=== PATIENT | female | born 1950 | race Caucasian/White ===

== ENCOUNTER → 2016-08-22 | Outpatient (REF) | payer MEDICARE, MEDICAID ==
[~2016-08-22] MED LIST: /ESCI20TA; /ESOM40CA; /FEXO18TA; AMIT25TA PO; BABY81CH; BENI20TA11; CIPR500T19; CIPR500T89 PO; DIOV320T; DOCU10CA PO; DRIS50002 PO; FLAG500T; FLAG500T PO; GLUC500T; GLYB5TA PO; HYDR12.55 PO; HYDR25TA6; HYDROCHLORTHIAZIDE; LEVA500T PO; LEVO125T3 PO; LEVO200T6; LEVOTHROID; LEXA1TAB2 PO; METF1000 PO; NAPR500T; NAPR500T PO; NEXI20CA; OMEP40CA2 PO; PEG1POW PO; PERC5TAB6 PO; POTA20TA2; RAMI10CA PO; SIMV40TA2 PO; ZOFR20TA PO; [UNRECOGNIZED DRUG - CODE] PO
== END ==
LOC: M SFHCADAM 08:12
PROVIDERS: ATTEND Physician Assistant Medical
DX: R76.11 Nonspecific reaction to tuberculin skin test without active tuberculosis (principal)

== ENCOUNTER → 2016-08-22 | Outpatient (CLI) | payer MEDICARE, MEDICAID ==
--- NOTE | 2016-08-22 10:39 | REP ---
Chest two views HISTORY: Positive PPD Comparison: 05/18/2009 The lungs are clear. The heart is normal in size. The pulmonary vasculature is normal in appearance. The bony structure is intact. IMPRESSION: No acute disease. Signed by Thony Dove MD 08/22/2016 10:31 A
== END ==
LOC: M ADAMS 08:17
PROVIDERS: ATTEND Physician Assistant Medical
DX: R76.11 Nonspecific reaction to tuberculin skin test without active tuberculosis (principal)

== ENCOUNTER → 2016-08-23 | Outpatient (REF) | payer MEDICARE, MEDICAID | LOC: M SFHCADAM 08:10 | PROVIDERS: ATTEND Physician Assistant Medical | DX: R76.11 Nonspecific reaction to tuberculin skin test without active tuberculosis (principal) ==

== ENCOUNTER → 2016-10-17 | Outpatient (CLI) | payer MEDICARE, MEDICAID ==
[~2016-10-17] MED LIST changes: +CIPR-249 PO; -CIPR500T89 PO; +LEVA1TAB2 PO; -LEVA500T PO; -LEVO125T3 PO; +LEVO125T4 PO; -METF1000 PO; +METF10004 PO; +PERC5TAB12 PO; -PERC5TAB6 PO; +TOUJ1.2I SC
[2016-10-17 14:18] LABS: ALBUMIN 3.3 GM/DL (3.2-5.2); ALBUMIN/GLOBULIN RATIO 0.87 (1.00-1.93); ALKALINE PHOSPHATASE 141 U/L (45-117); ALT/SGPT 86 U/L (12-78); ANION GAP 7 MEQ/L (8-16); AST/SGOT 86 U/L (15-37); BILIRUBIN,TOTAL 1.1 MG/DL (0.2-1.0); BLOOD UREA NITROGEN 12 MG/DL (7-18); CALCIUM LEVEL 8.8 MG/DL (8.8-10.2); CARBON DIOXIDE LEVEL 30 MEQ/L (21-32); CHLORIDE LEVEL 101 MEQ/L (98-107); CHOLESTEROL LEVEL 208 MG/DL (<200); CREATININE FOR GFR 0.64 MG/DL (0.55-1.02); GLOMERULAR FILTRATION RATE > 60.0 (>45); GLUCOSE, FASTING 205 MG/DL (80-110); SODIUM LEVEL 138 MEQ/L (136-145); TOTAL PROTEIN 7.1 GM/DL (6.4-8.2); TRIGLYCERIDES LEVEL 283 MG/DL (<150)
--- NOTE | 2016-10-17 15:31 | REP ---
CT of the abdomen pelvis with IV and oral contrast: Comparison is 05/17/2014. The visualized lung wagner are unremarkable. The hepatic parenchyma is less dense than the spleen compatible with hepato steatosis. The gallbladder, pancreas and spleen are unremarkable. The adrenals, kidneys and abdominal aorta are unremarkable except for small renal cysts, not significantly changed. There is no bowel distension or obstruction. There are numerous diverticula, vertically in the descending colon and sigmoid colon. There is pericolonic inflammation adjacent to the sigmoid colon compatible with diverticulitis. There is no pericolonic abscess. There is no pneumoperitoneum. Pelvis: There is a hysterectomy. The vaginal cuff and adnexa are unremarkable. The appendix has a normal appearance. There is no ascites or adenopathy. The bladder is unremarkable. Impression: Sigmoid colon diverticulitis without pericolonic abscess. No ascites or pneumoperitoneum. Hepato steatosis. Signed by Az Cochran MD 10/17/2016 03:22 P
== END ==
LOC: M LAB 12:48
PROVIDERS: ATTEND Physician Assistant Medical
DX: E11.9 Type 2 diabetes mellitus without complications (principal); K57.92 Diverticulitis of intestine, part unspecified, without perforation or abscess without bleeding; E55.9 Vitamin D deficiency, unspecified; R30.0 Dysuria; E78.4 Other hyperlipidemia; E03.9 Hypothyroidism, unspecified; L29.8 Other pruritus; R15.1 Fecal smearing; R15.9 Full incontinence of feces; R10.32 Left lower quadrant pain; N39.41 Urge incontinence; Z79.84 Long term (current) use of oral hypoglycemic drugs; Z79.899 Other long term (current) drug therapy
CPT/HCPCS: 36415; 74177; 80053; 80061; 81002; 82043; 82306; 83036; 84443; 87086; G0463

== ENCOUNTER → 2016-10-17 | Outpatient (REF) | payer MEDICARE, MEDICAID ==
[~2016-10-17] MED LIST changes: -CIPR-249 PO; +CIPR500T89 PO; -LEVA1TAB2 PO; +LEVA500T PO; +LEVO125T3 PO; -LEVO125T4 PO; +METF1000 PO; -METF10004 PO; -PERC5TAB12 PO; +PERC5TAB6 PO; -TOUJ1.2I SC
== END ==
LOC: M SFHCADAM 12:01
PROVIDERS: ATTEND Physician Assistant Medical
DX: R30.0 Dysuria (principal); E11.9 Type 2 diabetes mellitus without complications; E78.4 Other hyperlipidemia; E03.9 Hypothyroidism, unspecified; E55.9 Vitamin D deficiency, unspecified

== ENCOUNTER → 2016-11-27 | Outpatient (REF) | payer MEDICARE ==
[~2016-11-27] MED LIST changes: +CIPR-249 PO; -CIPR500T89 PO; +LEVA1TAB2 PO; -LEVA500T PO; -LEVO125T3 PO; +LEVO125T4 PO; -METF1000 PO; +METF10004 PO; +PERC5TAB12 PO; -PERC5TAB6 PO; +TOUJ1.2I SC
== END ==
LOC: M SFHCADAM 17:01
PROVIDERS: ATTEND Physician Assistant Medical
DX: R19.5 Other fecal abnormalities (principal)

== ENCOUNTER 2016-12-16 12:44 | Emergency (ER) | payer MEDICARE ==
[~2016-12-16] VITALS: Ht 162.6 cm; Wt 111.3 kg
[~2016-12-16 12:44] MED LIST changes: -TOUJ1.2I SC
[2016-12-16] MEDS ORDERED: TOUJ1.2I SC (12:53)
[2016-12-16] MEDS ORDERED: NS 500 ML IV ONE (14:45)
[2016-12-16 15:22] LABS: VENOUS BASE EXCESS 4.1 (-2.0-2.0); VENOUS O2 SATURATION 66.5 % (60.0-80.0); VENOUS PARTIAL PRESSURE CO2 57.8 mmHg (38.0-50.0); VENOUS PARTIAL PRESSURE O2 37.1 mmHg (30.0-50.0); VENOUS STANDARD HCO3 27.3 MEQ/L; VENOUS TOTAL CO2 33.3 MEQ/L (24.0-28.0)
[2016-12-16 15:26] LABS: MEAN CORPUSCULAR HEMOGLOBIN 30.1 pg (27.0-33.0); MEAN CORPUSCULAR HGB CONC 34.2 g/dl (32.0-36.5); RED CELL DISTRIBUTION WIDTH 12.4 % (11.5-14.5); WHITE BLOOD COUNT 7.4 K/mm3 (4.0-10.0)
[2016-12-16 15:44] LABS: ALBUMIN 3.2 GM/DL (3.2-5.2); ALBUMIN/GLOBULIN RATIO 0.84 (1.00-1.93); ALKALINE PHOSPHATASE 132 U/L (45-117); ALT/SGPT 56 U/L (12-78); ANION GAP 6 MEQ/L (8-16); AST/SGOT 75 U/L (15-37); BILIRUBIN,DIRECT 0.2 MG/DL (0.0-0.2); BILIRUBIN,TOTAL 0.7 MG/DL (0.2-1.0); BLOOD UREA NITROGEN 11 MG/DL (7-18); CALCIUM LEVEL 9.6 MG/DL (8.8-10.2); CARBON DIOXIDE LEVEL 32 MEQ/L (21-32); CHLORIDE LEVEL 101 MEQ/L (98-107); CREATININE FOR GFR 0.77 MG/DL (0.55-1.02); GLOMERULAR FILTRATION RATE > 60.0 (>45); GLUCOSE, FASTING 224 MG/DL (80-110); SODIUM LEVEL 139 MEQ/L (136-145)
[2016-12-16 16:14] LABS: EOSINOPHILS 3 % (0-5)
[2016-12-16 17:10] LABS: VENOUS BASE EXCESS 5.7 (-2.0-2.0); VENOUS O2 SATURATION 82.6 % (60.0-80.0); VENOUS PARTIAL PRESSURE CO2 55.8 mmHg (38.0-50.0); VENOUS PARTIAL PRESSURE O2 47.9 mmHg (30.0-50.0); VENOUS STANDARD HCO3 29.2 MEQ/L; VENOUS TOTAL CO2 34.2 MEQ/L (24.0-28.0)
[2016-12-16] MEDS ORDERED: FIORICET TAB PO ONE (18:00)
[2016-12-16] MEDS ORDERED: KETOROLAC 30 MG/ML VIAL (J1885) IV ONE (18:00)
[2016-12-16 18:20] VITALS: BP 133/82
--- NOTE | 2016-12-16 19:44 | ECGEPIP ---
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
== END 2016-12-16 18:21 | disposition home or self-care (01) ==
LOC: M ED 12:44
DX: E11.65 Type 2 diabetes mellitus with hyperglycemia (principal); R07.9 Chest pain, unspecified; R51 Headache; I10 Essential (primary) hypertension; K57.92 Diverticulitis of intestine, part unspecified, without perforation or abscess without bleeding; Z79.899 Other long term (current) drug therapy; Z79.4 Long term (current) use of insulin
CPT/HCPCS: 80048; 80076; 82010; 82803; 83036; 83605; 83690; 85007; 85027; 93005; 96374; 99285; J1885

== ENCOUNTER → 2017-07-22 | Outpatient (REF) | payer MEDICARE, MEDICAID ==
[2017-07-22 13:07] LABS: BASO # 0.1 10^3/uL (0.0-0.2); BASO % 0.6 % (0.0-1.0); EOS # 0.2 10^3/uL (0.0-0.50); HEMATOCRIT 42.9 % (36.0-47.0); HEMOGLOBIN 13.9 g/dl (12.0-16.0); IMMATURE GRANULOCYTE % 0.4 % (0-3.0); LYMPH # 2.7 10^3/uL (1.5-4.5); LYMPH % 33.5 % (24.0-44.0); MEAN CORPUSCULAR HEMOGLOBIN 28.5 pg (27.0-33.0); MEAN CORPUSCULAR HGB CONC 32.4 g/dl (32.0-36.5); MEAN CORPUSCULAR VOLUME 87.9 fl (80.0-96.0); MONO # 0.8 10^3/uL (0.0-0.8); MONO % 10.4 % (0.0-5.0); NEUTROPHILS # 4.2 10^3/uL (1.8-7.7); NEUTROPHILS % 53.1 % (36.0-66.0); PLATELET COUNT, AUTOMATED 180 10^3/uL (150-450); RED BLOOD COUNT 4.88 10^6/uL (4.00-5.40); RED CELL DISTRIBUTION WIDTH 12.9 % (11.5-14.5)
[2017-07-22 13:32] LABS: ALBUMIN 3.3 GM/DL (3.2-5.2); ALBUMIN/GLOBULIN RATIO 0.94 (1.00-1.93); ALKALINE PHOSPHATASE 123 U/L (45-117); ALT/SGPT 22 U/L (12-78); ANION GAP 4 MEQ/L (8-16); AST/SGOT 19 U/L (7-37); BILIRUBIN,TOTAL 0.6 MG/DL (0.2-1.0); BLOOD UREA NITROGEN 14 MG/DL (7-18); CALCIUM LEVEL 8.9 MG/DL (8.8-10.2); CARBON DIOXIDE LEVEL 35 MEQ/L (21-32); CHLORIDE LEVEL 105 MEQ/L (98-107); CHOLESTEROL LEVEL 199 MG/DL (<200); CHOLESTEROL RISK RATIO 5.102 (<5); CREATININE FOR GFR 0.78 MG/DL (0.55-1.30); FREE T4 1.43 NG/DL (0.76-1.46); GLOMERULAR FILTRATION RATE > 60.0 (>45); GLUCOSE, FASTING 123 MG/DL (70-100); HDL CHOLESTEROL 39 MG/DL (>40); LDL CHOLESTEROL 118.2 MG/DL (<100); NON-HDL-C 160 MG/DL; POTASSIUM SERUM 4.4 MEQ/L (3.5-5.1); SODIUM LEVEL 144 MEQ/L (136-145); THYROID STIMULATING HORMONE 0.739 uIU/ML (0.358-3.740); TOTAL PROTEIN 6.8 GM/DL (6.4-8.2); TRIGLYCERIDES LEVEL 209 MG/DL (<150)
[2017-07-22 13:33] LABS: TOTAL 25(OH) VITAMIN D 55.7 NG/ML (30.0-100.0)
[2017-07-22 13:37] LABS: ESTIMATED AVERAGE GLUCOSE 157 MG/DL (60-110); HEMOGLOBIN A1c 7.1 %
[2017-07-22 13:59] LABS: MAU/CREAT RATIO 17.1 MCG/MG (0.0-30.0)
== END ==
LOC: M SFHCADAM 08:26
DX: E55.9 Vitamin D deficiency, unspecified (principal); I10 Essential (primary) hypertension; E11.9 Type 2 diabetes mellitus without complications
CPT/HCPCS: 83735

== ENCOUNTER → 2017-07-25 | Outpatient (CLI) | payer MEDICARE, MEDICAID | LOC: M ADAMS 16:35 | DX: R76.11 Nonspecific reaction to tuberculin skin test without active tuberculosis (principal) | CPT/HCPCS: 71046 ==

== ENCOUNTER → 2017-09-02 | Outpatient (CLI) | payer MEDICARE | LOC: M WHC 13:47 | DX: Z12.31 Encounter for screening mammogram for malignant neoplasm of breast (principal); Z78.0 Asymptomatic menopausal state; R92.0 Mammographic microcalcification found on diagnostic imaging of breast; M85.88 Other specified disorders of bone density and structure, other site; M85.851 Other specified disorders of bone density and structure, right thigh; M85.852 Other specified disorders of bone density and structure, left thigh | CPT/HCPCS: 77067 ==

== ENCOUNTER → 2017-09-17 | Outpatient (CLI) | payer MEDICARE | LOC: M RAD 14:37 | DX: R92.2 Inconclusive mammogram (principal); R92.0 Mammographic microcalcification found on diagnostic imaging of breast; N63.20 Unspecified lump in the left breast, unspecified quadrant | CPT/HCPCS: 77065 ==

== ENCOUNTER → 2017-09-18 | Outpatient (REF) | payer MEDICARE ==
[2017-09-18 18:45] LABS: AMORPHOUS SEDIMENT SMALL (NEGATIVE); APPEARANCE, URINE HAZY (CLEAR); BACTERIA, URINE AUTO 1+ (NEGATIVE); BILIRUBIN, URINE AUTO NEGATIVE (NEGATIVE); BLOOD, URINE BLOOD NEGATIVE (NEGATIVE); COLOR, URINE YELLOW (YELLOW); GLUCOSE, URINE (UA) AUTO 3+ mg/dL (NEGATIVE); KETONE, URINE AUTO NEGATIVE (NEGATIVE); LEUKOCYTE ESTERASE, URINE AUTO 2+ (NEGATIVE); MUCUS, URINE SMALL (NEGATIVE); NITRITE, URINE AUTO NEGATIVE (NEGATIVE); PROTEIN, URINE AUTO NEGATIVE (NEGATIVE); RBC, URINE AUTO 3 /HPF (0-3); SPECIFIC GRAVITY URINE AUTO 1.015 (1.002-1.035); SQUAMOUS EPITHELIAL CELL UR AU 4 /HPF (0-6); UROBILINOGEN, URINE AUTO 0.2 mg/dL (0.0-2.0); WBC, URINE AUTO 26 /HPF (0-3); YEAST LIKE CELL URINE AUTO SMALL
== END ==
LOC: M LAB REF 17:21
DX: N39.0 Urinary tract infection, site not specified (principal)
CPT/HCPCS: 81001

== ENCOUNTER 2017-10-09 18:22 | Emergency (ER) | payer MEDICARE ==
[2017-10-09 20:24] LABS: KETONE, URINE AUTO RFX NEGATIVE (NEGATIVE); LEUKOCYTE ESTERASE UR AUTO RFX NEGATIVE (NEGATIVE); NITRITE, URINE AUTO RFX NEGATIVE (NEGATIVE); RBC, URINE AUTO RFX 1 /HPF (0-3); SPECIFIC GRAVITY UR AUTO RFX 1.015 (1.002-1.035); SQUAM EPITHELIAL CELL UR AURFX 1 /HPF (0-6); WBC, URINE AUTO RFX 3 /HPF (0-3)
[2017-10-09 20:35] LABS: BASO % 0.3 % (0.0-1.0); EOS # 0.2 10^3/uL (0.0-0.50); EOS % 1.8 % (0.0-3.0); HEMATOCRIT 40.8 % (36.0-47.0); HEMOGLOBIN 13.4 g/dl (12.0-15.5); IMMATURE GRANULOCYTE % 0.2 % (0-3.0); LYMPH % 31.8 % (24.0-44.0); MEAN CORPUSCULAR HEMOGLOBIN 28.8 pg (27.0-33.0); MEAN CORPUSCULAR HGB CONC 32.8 g/dl (32.0-36.5); MEAN CORPUSCULAR VOLUME 87.7 fl (80.0-96.0); MONO % 10.3 % (0.0-5.0); NEUTROPHILS # 5.3 10^3/uL (1.8-7.7); NEUTROPHILS % 55.6 % (36.0-66.0); PLATELET COUNT, AUTOMATED 173 10^3/uL (150-450); RED BLOOD COUNT 4.65 10^6/uL (4.00-5.40); RED CELL DISTRIBUTION WIDTH 13.1 % (11.5-14.5); WHITE BLOOD COUNT 9.6 10^3/uL (4.0-10.0)
[2017-10-09] MEDS: ONDANSETRON 4MG/2ML VIAL (J2405) IV (20:45)
[2017-10-09] MEDS: NS 1,000 ML IV (20:45)
[2017-10-09] MEDS: MORPHINE 4 MG/ML 1ML VIAL/SYRINGE (J2270) IV ×2 (20:45→22:01)
[2017-10-09] MEDS ORDERED: ISOVUE-370 76% 100ML VIAL (Q9967) As Ordered (20:58)
[2017-10-09 21:02] LABS: ALBUMIN/GLOBULIN RATIO 0.73 (1.00-1.93); ALKALINE PHOSPHATASE 120 U/L (45-117); ALT/SGPT 27 U/L (12-78); AMYLASE 19 U/L (25-115); ANION GAP 8 MEQ/L (8-16); AST/SGOT 25 U/L (7-37); BILIRUBIN,DIRECT < 0.1 MG/DL (0.0-0.2); BILIRUBIN,TOTAL 0.5 MG/DL (0.2-1.0); BLOOD UREA NITROGEN 13 MG/DL (7-18); CALCIUM LEVEL 8.7 MG/DL (8.8-10.2); CARBON DIOXIDE LEVEL 31 MEQ/L (21-32); CHLORIDE LEVEL 106 MEQ/L (98-107); CREATININE FOR GFR 0.99 MG/DL (0.55-1.30); GLOMERULAR FILTRATION RATE 59.6 (>45); GLUCOSE, FASTING 155 MG/DL (70-100); LIPASE 68 U/L (73-393); SODIUM LEVEL 145 MEQ/L (136-145); TOTAL PROTEIN 7.1 GM/DL (6.4-8.2)
== END 2017-10-09 22:41 | disposition home or self-care (01) ==
LOC: M ED 18:22
DX: R10.32 Left lower quadrant pain (principal); R11.0 Nausea; R19.7 Diarrhea, unspecified; R00.1 Bradycardia, unspecified; N28.89 Other specified disorders of kidney and ureter; M47.816 Spondylosis without myelopathy or radiculopathy, lumbar region; E11.9 Type 2 diabetes mellitus without complications; I10 Essential (primary) hypertension; K21.9 Gastro-esophageal reflux disease without esophagitis; K57.30 Diverticulosis of large intestine without perforation or abscess without bleeding; G47.30 Sleep apnea, unspecified; Z79.82 Long term (current) use of aspirin; Z79.899 Other long term (current) drug therapy
CPT/HCPCS: J2270

== ENCOUNTER → 2017-10-12 | Outpatient (CLI) | payer MEDICARE ==
[2017-10-12 17:52] LABS: BASO % 0.5 % (0.0-1.0); EOS # 0.2 10^3/uL (0.0-0.50); EOS % 1.9 % (0.0-3.0); HEMOGLOBIN 13.3 g/dl (12.0-15.5); IMMATURE GRANULOCYTE % 0.3 % (0-3.0); LYMPH # 2.7 10^3/uL (1.5-4.5); LYMPH % 31.2 % (24.0-44.0); MEAN CORPUSCULAR HEMOGLOBIN 28.2 pg (27.0-33.0); MEAN CORPUSCULAR HGB CONC 31.7 g/dl (32.0-36.5); MEAN CORPUSCULAR VOLUME 89.2 fl (80.0-96.0); MONO # 0.8 10^3/uL (0.0-0.8); MONO % 8.9 % (0.0-5.0); NEUTROPHILS # 4.9 10^3/uL (1.8-7.7); NEUTROPHILS % 57.2 % (36.0-66.0); PLATELET COUNT, AUTOMATED 178 10^3/uL (150-450); RED BLOOD COUNT 4.71 10^6/uL (4.00-5.40); RED CELL DISTRIBUTION WIDTH 12.5 % (11.5-14.5); WHITE BLOOD COUNT 8.6 10^3/uL (4.0-10.0)
[2017-10-12 17:57] LABS: ALBUMIN 3.4 GM/DL (3.2-5.2); ALBUMIN/GLOBULIN RATIO 0.97 (1.00-1.93); ALKALINE PHOSPHATASE 126 U/L (45-117); ALT/SGPT 27 U/L (12-78); ANION GAP 7 MEQ/L (8-16); AST/SGOT 22 U/L (7-37); BILIRUBIN,TOTAL 0.8 MG/DL (0.2-1.0); BLOOD UREA NITROGEN 12 MG/DL (7-18); CALCIUM LEVEL 8.6 MG/DL (8.8-10.2); CARBON DIOXIDE LEVEL 35 MEQ/L (21-32); CHLORIDE LEVEL 101 MEQ/L (98-107); CREATININE FOR GFR 0.73 MG/DL (0.55-1.30); GLOMERULAR FILTRATION RATE > 60.0 (>45); GLUCOSE, FASTING 91 MG/DL (70-100); SODIUM LEVEL 143 MEQ/L (136-145); TOTAL PROTEIN 6.9 GM/DL (6.4-8.2)
== END ==
LOC: M ADAMS 15:28
DX: R07.9 Chest pain, unspecified (principal); M54.6 Pain in thoracic spine
CPT/HCPCS: 80053

== ENCOUNTER → 2017-11-05 | Outpatient (CLI) | payer MEDICARE ==
[~2017-11-05] MED LIST changes: -/ESCI20TA; -/ESOM40CA; -/FEXO18TA; -AMIT25TA PO; -BABY81CH; -BENI20TA11; -CIPR-249 PO; -CIPR500T19; -DIOV320T; -DOCU10CA PO; -DRIS50002 PO; -FLAG500T; -FLAG500T PO; -GLUC500T; -GLYB5TA PO; -HYDR12.55 PO; -HYDR25TA6; -HYDROCHLORTHIAZIDE; -LEVA1TAB2 PO; -LEVO125T4 PO; -LEVO200T6; -LEVOTHROID; -LEXA1TAB2 PO; +LIDOCAINE 1% MDV 20ML VIAL As Ordered; -METF10004 PO; -NAPR500T; -NAPR500T PO; -NEXI20CA; -OMEP40CA2 PO; -PEG1POW PO; -PERC5TAB12 PO; -POTA20TA2; -RAMI10CA PO; -SIMV40TA2 PO; -ZOFR20TA PO; -[UNRECOGNIZED DRUG - CODE] PO
== END ==
LOC: M RADPRO 13:04
DX: R92.0 Mammographic microcalcification found on diagnostic imaging of breast (principal); Z79.82 Long term (current) use of aspirin; Z79.899 Other long term (current) drug therapy; Z79.4 Long term (current) use of insulin
CPT/HCPCS: 19081

== ENCOUNTER 2017-12-28 13:16 | Emergency (ER) | payer MEDICARE, MEDICAID ==
[2017-12-28 14:10] LABS: BASO % 0.4 % (0.0-1.0); EOS # 0.2 10^3/uL (0.0-0.50); EOS % 1.5 % (0.0-3.0); HEMATOCRIT 44.7 % (36.0-47.0); HEMOGLOBIN 14.7 g/dl (12.0-15.5); IMMATURE GRANULOCYTE % 0.2 % (0-3.0); LYMPH # 3.1 10^3/uL (1.5-4.5); LYMPH % 31.5 % (24.0-44.0); MEAN CORPUSCULAR HEMOGLOBIN 28.6 pg (27.0-33.0); MEAN CORPUSCULAR HGB CONC 32.9 g/dl (32.0-36.5); MONO # 0.8 10^3/uL (0.0-0.8); MONO % 8.2 % (0.0-5.0); NEUTROPHILS # 5.8 10^3/uL (1.8-7.7); NEUTROPHILS % 58.2 % (36.0-66.0); PLATELET COUNT, AUTOMATED 185 10^3/uL (150-450); RED BLOOD COUNT 5.14 10^6/uL (4.00-5.40); RED CELL DISTRIBUTION WIDTH 12.5 % (11.5-14.5); WHITE BLOOD COUNT 9.9 10^3/uL (4.0-10.0)
[2017-12-28 14:20] LABS: INR 0.97; PARTIAL THROMBOPLASTIN TIME 29.1 SECONDS (25.4-37.6)
[2017-12-28 14:26] LABS: ALBUMIN 3.1 GM/DL (3.2-5.2); ALBUMIN/GLOBULIN RATIO 0.67 (1.00-1.93); ALKALINE PHOSPHATASE 135 U/L (45-117); ALT/SGPT 26 U/L (12-78); AMYLASE 17 U/L (25-115); ANION GAP 7 MEQ/L (8-16); AST/SGOT 22 U/L (7-37); BILIRUBIN,DIRECT 0.2 MG/DL (0.0-0.2); BILIRUBIN,TOTAL 1.1 MG/DL (0.2-1.0); BLOOD UREA NITROGEN 11 MG/DL (7-18); CALCIUM LEVEL 8.9 MG/DL (8.8-10.2); CARBON DIOXIDE LEVEL 30 MEQ/L (21-32); CHLORIDE LEVEL 103 MEQ/L (98-107); CREATININE FOR GFR 0.75 MG/DL (0.55-1.30); GLOMERULAR FILTRATION RATE > 60.0 (>45); GLUCOSE, FASTING 129 MG/DL (70-100); LIPASE 74 U/L (73-393); POTASSIUM SERUM 3.9 MEQ/L (3.5-5.1); SODIUM LEVEL 140 MEQ/L (136-145); TOTAL PROTEIN 7.7 GM/DL (6.4-8.2)
[2017-12-28] MEDS ORDERED: ISOVUE-370 76% 100ML VIAL (Q9967) As Ordered (15:07)
[2017-12-28] MEDS: MORPHINE 4 MG/ML 1ML VIAL/SYRINGE (J2270) IV (15:15)
[2017-12-28] MEDS: ONDANSETRON 4MG/2ML VIAL (J2405) IV (15:15)
== END 2017-12-28 16:10 | disposition home or self-care (01) ==
LOC: M ED 13:16
DX: K57.92 Diverticulitis of intestine, part unspecified, without perforation or abscess without bleeding (principal); E11.9 Type 2 diabetes mellitus without complications; I10 Essential (primary) hypertension; G47.33 Obstructive sleep apnea (adult) (pediatric); F41.9 Anxiety disorder, unspecified
CPT/HCPCS: J2270

== ENCOUNTER → 2018-03-30 | Outpatient (REF) | payer MEDICARE, MEDICAID ==
[2018-03-30 13:43] LABS: BASO # 0.1 10^3/uL (0.0-0.2); BASO % 0.8 % (0.0-1.0); EOS # 0.2 10^3/uL (0.0-0.50); EOS % 2.6 % (0.0-3.0); HEMATOCRIT 45.1 % (36.0-47.0); IMMATURE GRANULOCYTE % 0.5 % (0-3.0); LYMPH # 2.1 10^3/uL (1.5-4.5); LYMPH % 34.2 % (24.0-44.0); MEAN CORPUSCULAR HEMOGLOBIN 28.7 pg (27.0-33.0); MEAN CORPUSCULAR VOLUME 92.6 fl (80.0-96.0); MONO # 0.5 10^3/uL (0.0-0.8); MONO % 8.9 % (0.0-5.0); NEUTROPHILS # 3.2 10^3/uL (1.8-7.7); PLATELET COUNT, AUTOMATED 134 10^3/uL (150-450); RED BLOOD COUNT 4.87 10^6/uL (4.00-5.40); RED CELL DISTRIBUTION WIDTH 12.7 % (11.5-14.5); WHITE BLOOD COUNT 6.1 10^3/uL (4.0-10.0)
[2018-03-30 14:12] LABS: ALBUMIN 3.3 GM/DL (3.2-5.2); ALBUMIN/GLOBULIN RATIO 1.06 (1.00-1.93); ALKALINE PHOSPHATASE 134 U/L (45-117); ALT/SGPT 32 U/L (12-78); ANION GAP 7 MEQ/L (8-16); AST/SGOT 24 U/L (7-37); BILIRUBIN,TOTAL 0.5 MG/DL (0.2-1.0); BLOOD UREA NITROGEN 13 MG/DL (7-18); CALCIUM LEVEL 8.3 MG/DL (8.8-10.2); CARBON DIOXIDE LEVEL 28 MEQ/L (21-32); CHLORIDE LEVEL 108 MEQ/L (98-107); CHOLESTEROL LEVEL 189 MG/DL (<200); CHOLESTEROL RISK RATIO 5.558 (<5); CREATININE FOR GFR 0.68 MG/DL (0.55-1.30); FREE T4 1.16 NG/DL (0.76-1.46); GLOMERULAR FILTRATION RATE > 60.0 (>45); GLUCOSE, FASTING 160 MG/DL (70-100); HDL CHOLESTEROL 34 MG/DL (>40); LDL CHOLESTEROL 110 MG/DL (<100); MAGNESIUM LEVEL 1.7 MG/DL (1.8-2.4); NON-HDL-C 155 MG/DL; POTASSIUM SERUM 4.1 MEQ/L (3.5-5.1); SODIUM LEVEL 143 MEQ/L (136-145); TOTAL PROTEIN 6.4 GM/DL (6.4-8.2); TRIGLYCERIDES LEVEL 226 MG/DL (<150)
[2018-03-30 14:21] LABS: TOTAL 25(OH) VITAMIN D 35.8 NG/ML (30.0-100.0)
[2018-03-30 15:19] LABS: ESTIMATED AVERAGE GLUCOSE 177 MG/DL (60-110); HEMOGLOBIN A1c 7.8 %
== END ==
LOC: M SFHCADAM 08:49
DX: E11.9 Type 2 diabetes mellitus without complications (principal); E55.9 Vitamin D deficiency, unspecified; I10 Essential (primary) hypertension; E03.9 Hypothyroidism, unspecified
CPT/HCPCS: 83735

== ENCOUNTER → 2018-08-11 | Outpatient (REF) | payer MEDICARE ==
[~2018-08-11] MED LIST changes: +/FEXO18TA; +AMIT25TA PO; +ASPI81TA26 PO; +BABY81CH; +BENI20TA11; +CIPR-249 PO; +CIPR500T19; +DIOV320T; +DOCU10CA PO; +DRIS50003 PO; +FLAG500T; +FLAG500T PO; +GLUC500T; +GLYB-147 PO; +HYDR-3715 PO; +HYDR12.55 PO; +HYDR25TA6; +HYDROCHLORTHIAZIDE; +K-TA1TAB PO; +LEVA1TAB2 PO; +LEVO125T4 PO; +LEVO200T6; +LEVOTHROID; +LEXA1TAB2; +LEXA1TAB2 PO; -LIDOCAINE 1% MDV 20ML VIAL As Ordered; +METF10004 PO; +NAPR-837 PO; +NAPR500T; +NEXI1CAP3; +NEXI20CA; +OMEP40CA2 PO; +PEG1POW PO; +PERC5TAB12 PO; +POTA20TA2; +RAMI1CAP26 PO; +SIMV40TA2 PO; +TOUJ1.2I SC; +TRUL10IN PO; +VITA100066 PO; +ZOFR4TAB14 PO; +ZOFR4TAB16 PO; +[UNRECOGNIZED DRUG - CODE] PO
== END ==
LOC: M SFHCADAM 10:43
PROVIDERS: ATTEND Physician Assistant Medical
DX: R76.11 Nonspecific reaction to tuberculin skin test without active tuberculosis (principal)

== ENCOUNTER → 2018-09-28 | Outpatient (REF) | payer MEDICARE | LOC: M SFHCADAM 09:34 | PROVIDERS: ATTEND Physician Assistant Medical | DX: E03.9 Hypothyroidism, unspecified (principal) ==

== ENCOUNTER 2019-01-19 08:22 | Day surgery (SDC) | payer MEDICARE ==
[~2019-01-19] VITALS: Ht 152.4 cm; Wt 116.1 kg
[2019-01-19] MEDS: NS 1,000 ML IV ONE (09:03)
[2019-01-19] MEDS ORDERED: LIDOCAINE 2% INJ 100 MG/5 ML SDV (FOR ANES.) As Ordered ONE (09:31)
[2019-01-19] MEDS ORDERED: PROPOFOL 200 MG/20 ML VIAL As Ordered ONE ×2 (09:31→09:32)
--- NOTE | 2019-01-19 10:41 | ROOR ---
Patient Name: Felicitas Gamez Procedure Date: 01/19/2019 10:11 AM Date of : 1950 Age: 68 Room: [facility] Gender: Female Note Status: Finalized Procedure: Colonoscopy Indications: Screening for colorectal malignant neoplasm, Last colonoscopy: May 2008 Providers: Don Carr MD Referring MD: SHONA Salmon Requesting Provider: Medicines: Monitored Anesthesia Care Complications: No immediate complications. Procedure: Pre-Anesthesia Assessment: - Prior to the procedure, a History and Physical was performed, and patient medications and allergies were reviewed. The patient is competent. The risks and benefits of the procedure and the sedation options and risks were discussed with the patient. All questions were answered and informed consent was obtained. Patient identification and proposed procedure were verified by the physician, the nurse and the anesthesiologist in the procedure room. Mental Status Examination: alert and oriented. CV Examination: regular rate and rhythm. Prophylactic Antibiotics: The patient does not require prophylactic antibiotics. Prior Anticoagulants: The patient has taken no previous anticoagulant or antiplatelet agents. ASA Grade Assessment: III - A patient with severe systemic disease. After reviewing the risks and benefits, the patient was deemed in satisfactory condition to undergo the procedure. The anesthesia plan was to use monitored anesthesia care (MAC). Immediately prior to administration of medications, the patient was re-assessed for adequacy to receive sedatives. The heart rate, respiratory rate, oxygen saturations, blood pressure, adequacy of pulmonary ventilation, and response to care were monitored throughout the procedure. The physical status of the patient was re-assessed after the procedure. The was introduced through the anus and advanced to the cecum, identified by appendiceal orifice and ileocecal valve. The colonoscopy was performed without difficulty. The patient tolerated the procedure well. The quality of the bowel preparation was excellent. Findings: The perianal and digital rectal examinations were normal. Many medium-mouthed diverticula were found in the entire colon. Impression: - Diverticulosis in the entire examined colon. - No specimens collected. Recommendation: - Discharge patient to home. - Resume previous diet. - Continue present medications. - Repeat colonoscopy in 10 years for screening purposes. Don Carr MD Don Carr MD 01/19/2019 10:40:27 AM Electronically signed by Don Carr MD Number of Addenda: 0 Note Initiated On: 01/19/2019 10:11 AM Estimated Blood Loss: Estimated blood loss: none.
[2019-01-19 11:25] VITALS: BP 180/100
== END 2019-01-19 11:40 | disposition home or self-care (01) ==
LOC: M OPP 08:22
PROVIDERS: ATTEND Surgery
DX: Z12.11 Encounter for screening for malignant neoplasm of colon (principal); K57.30 Diverticulosis of large intestine without perforation or abscess without bleeding; K21.9 Gastro-esophageal reflux disease without esophagitis; Z79.4 Long term (current) use of insulin; Z79.899 Other long term (current) drug therapy

== ENCOUNTER → 2019-06-16 | Outpatient (CLI) | payer MEDICARE ==
[~2019-06-16] MED LIST changes: -OMEP40CA2 PO; +OMEP40CA97 PO; -SIMV40TA2 PO; +SIMV40TA20 PO
--- NOTE | 2019-06-16 14:22 | REP ---
Clinical: Chest pain and fatigue . Comparison: 10/12/2017 . Technique: PA and lateral. Findings: The mediastinum and cardiac silhouette are normal. The lung wagner are clear and without acute consolidation, effusion, or pneumothorax. The skeletal structures are intact and normal. Impression: 1. No acute cardiopulmonary process. Electronically Signed by Cayden Parra MD 06/16/2019 02:13 P
== END ==
LOC: M ADAMS 13:58
PROVIDERS: ATTEND Physician Assistant Medical
DX: R05 Cough (principal); R53.83 Other fatigue

== ENCOUNTER → 2019-08-17 | Outpatient (REF) | payer MEDICARE ==
[2019-08-17 16:32] LABS: BASO # 0.1 10^3/uL (0.0-0.2); BASO % 0.8 % (0.0-1.0); EOS # 0.2 10^3/uL (0.0-0.5); EOS % 2.1 % (0.0-3.0); HEMATOCRIT 41.8 % (36.0-47.0); HEMOGLOBIN 13.5 g/dl (12.0-15.5); LYMPH # 2.8 10^3/uL (1.5-5.0); LYMPH % 37.1 % (24.0-44.0); MEAN CORPUSCULAR HEMOGLOBIN 28.1 pg (27.0-33.0); MEAN CORPUSCULAR HGB CONC 32.3 g/dl (32.0-36.5); MEAN CORPUSCULAR VOLUME 87.1 fl (80.0-96.0); MONO # 0.6 10^3/uL (0.0-0.8); MONO % 8.2 % (0.0-5.0); NEUTROPHILS # 3.8 10^3/uL (1.5-8.5); PLATELET COUNT, AUTOMATED 160 10^3/uL (150-450); WHITE BLOOD COUNT 7.5 10^3/uL (4.0-10.0)
[2019-08-17 16:46] LABS: ALBUMIN 3.2 GM/DL (3.2-5.2); ALT/SGPT 36 U/L (12-78); BILIRUBIN,TOTAL 0.8 MG/DL (0.2-1.0); BLOOD UREA NITROGEN 18 MG/DL (7-18); CALCIUM LEVEL 9.2 MG/DL (8.8-10.2); CARBON DIOXIDE LEVEL 31 MEQ/L (21-32); CHLORIDE LEVEL 103 MEQ/L (98-107); CHOLESTEROL LEVEL 157 MG/DL (<200); CHOLESTEROL RISK RATIO 4.361 (<5); CREATININE FOR GFR 0.73 MG/DL (0.55-1.30); GLOMERULAR FILTRATION RATE > 60.0 (>45); GLUCOSE, FASTING 260 MG/DL (70-100); HDL CHOLESTEROL 36 MG/DL (>40); LDL CHOLESTEROL 78 MG/DL (<100); MAGNESIUM LEVEL 1.6 MG/DL (1.8-2.4); NON-HDL-C 121 MG/DL; POTASSIUM SERUM 4.2 MEQ/L (3.5-5.1); SODIUM LEVEL 139 MEQ/L (136-145); TOTAL PROTEIN 6.7 GM/DL (6.4-8.2); TRIGLYCERIDES LEVEL 217 MG/DL (<150)
== END ==
LOC: M SFHCADAM 11:58
PROVIDERS: ATTEND Physician Assistant Medical
DX: E11.9 Type 2 diabetes mellitus without complications (principal); E83.42 Hypomagnesemia

== ENCOUNTER → 2020-05-23 | Outpatient (REF) | payer MEDICARE ==
[~2020-05-23] MED LIST changes: -AMIT25TA PO; +AMIT25TA17 PO
[2020-05-23 16:51] LABS: BASO # 0.1 10^3/uL (0.0-0.2); BASO % 0.6 % (0.0-1.0); EOS # 0.2 10^3/uL (0.0-0.5); EOS % 2.7 % (0.0-3.0); HEMATOCRIT 45.6 % (36.0-47.0); HEMOGLOBIN 14.7 g/dl (12.0-15.5); LYMPH # 3.5 10^3/uL (1.5-5.0); LYMPH % 40.3 % (24.0-44.0); MEAN CORPUSCULAR HEMOGLOBIN 28.1 pg (27.0-33.0); MEAN CORPUSCULAR HGB CONC 32.2 g/dl (32.0-36.5); MEAN CORPUSCULAR VOLUME 87.2 fl (80.0-96.0); MONO # 0.7 10^3/uL (0.0-0.8); MONO % 8.2 % (0.0-5.0); NEUTROPHILS # 4.2 10^3/uL (1.5-8.5); PLATELET COUNT, AUTOMATED 200 10^3/uL (150-450); RED BLOOD COUNT 5.23 10^6/uL (4.00-5.40); WHITE BLOOD COUNT 8.7 10^3/uL (4.0-10.0)
[2020-05-23 17:17] LABS: HEMOGLOBIN A1c 11.4 %
[2020-05-23 17:30] LABS: ALBUMIN 3.6 GM/DL (3.2-5.2); ALT/SGPT 31 U/L (12-78); BILIRUBIN,TOTAL 1.2 MG/DL (0.2-1.0); BLOOD UREA NITROGEN 13 MG/DL (7-18); CALCIUM LEVEL 9.9 MG/DL (8.8-10.2); CARBON DIOXIDE LEVEL 35 MEQ/L (21-32); CHLORIDE LEVEL 97 MEQ/L (98-107); CHOLESTEROL LEVEL 165 MG/DL (<200); CREATININE FOR GFR 0.85 MG/DL (0.55-1.30); GLOMERULAR FILTRATION RATE > 60.0 (>39); GLUCOSE, FASTING 266 MG/DL (70-100); HDL CHOLESTEROL 39 MG/DL (>40); LDL CHOLESTEROL 76 MG/DL (<100); MAGNESIUM LEVEL 1.5 MG/DL (1.8-2.4); NON-HDL-C 126 MG/DL; POTASSIUM SERUM 4.3 MEQ/L (3.5-5.1); SODIUM LEVEL 138 MEQ/L (136-145); THYROID STIMULATING HORMONE 0.886 uIU/ML (0.358-3.740); TOTAL PROTEIN 7.1 GM/DL (6.4-8.2); TRIGLYCERIDES LEVEL 252 MG/DL (<150)
[2020-05-23 17:31] LABS: TOTAL 25(OH) VITAMIN D 33.1 NG/ML (30.0-100.0)
[2020-05-23 17:45] LABS: CREATININE, URINE 46.8 MG/DL; MALB URINE SIEMENS 9.4 MG/L
== END ==
LOC: M SFHCADAM 11:56
PROVIDERS: ATTEND Physician Assistant Medical
DX: E83.42 Hypomagnesemia (principal); E11.9 Type 2 diabetes mellitus without complications; E03.9 Hypothyroidism, unspecified; E78.2 Mixed hyperlipidemia; Z79.899 Other long term (current) drug therapy

== ENCOUNTER → 2020-05-29 | Outpatient (REF) | payer MEDICARE | LOC: M SFHCADAM 14:20 | PROVIDERS: ATTEND Physician Assistant Medical | DX: E11.65 Type 2 diabetes mellitus with hyperglycemia (principal); Z79.4 Long term (current) use of insulin ==

== ENCOUNTER → 2020-06-05 | Outpatient (REF) | payer MEDICARE | LOC: M SFHCADAM 09:42 | PROVIDERS: ATTEND Physician Assistant Medical | DX: E11.65 Type 2 diabetes mellitus with hyperglycemia (principal) ==

== ENCOUNTER 2020-06-10 04:53 | Emergency (ER) | payer MEDICARE ==
[~2020-06-10] VITALS: Ht 152.4 cm; Wt 115.9 kg
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
--- OUTSIDE RECORDS SUMMARY | 2020-06-10 04:58 | CCD ---
Author Author [facility] Organization [facility] Address Unknown Phone Unavailable Care Team Providers Care Marketing Project Lead Name Role Phone Velasco, Felicia Unavailable PROBLEMS Type Condition ICD9-CM Code [id number] Code Onset Dates Condition S tatus SNOMED Code Notes Problem Diverticulosis of large intestine without hemorrhage K57.30 Active 027693397 Problem Dyspepsia K30 Active 686795977 Problem Essential (primary) hypertension I10 Active 82417659 Problem Hypomagnesemia E83.42 Active 977170826 Problem Vitamin D deficiency, unspecified E55.9 Active 44927991 Problem Morbid (severe) obesity due to excess calories E66 .01 Active 951892038 Problem Obstructive sleep apnea (adult) (pediatric) G47.33 Active 54868618 Problem Postconcussional syndrome F07.81 Active 821767 04 Problem Urge incontinence of urine N39.41 Active 56479 004 Problem Medicare annual wellness visit, subsequent Z00.00 Active 381081748 Problem Hypothyroidism, unspecified E03.9 Active 4093 0008 Problem Mixed hyperlipidemia E78.2 Active 719640756 Problem Type 2 diabetes mellitus without complications E11 .9 Active 641748850 Problem Full incontinence of feces R15.9 Active 28633 002 Problem Fatty liver K76.0 Active 586157631 Problem Constipation, unspecified constipation type K59.00 Active 08071886 Problem Abnormal mammogram R92.8 Active 671302749 ALLERGIES No Known Allergies ENCOUNTERS from 1950 to 2020-05-15 Encounter Location Date Provider Diagnosis [address] [address] Apr, Felicia Velasco IMMUNIZATIONS Vaccine Route Administration Date Status Influenza (18 yrs & older) Flublok IM Intramuscular Apr 09, 2018 Administered Influenza (6mo & up) Fluzone IM [...] Education Language: Question Answer Notes Languages spoken: Chadian Zoroastrianism: Question Answer Notes Zoroastrianism 13 Scientology Sexual Hx: Question Answer Notes Had sex in the last 12 months (vaginal, oral, or anal)? Yes with Men only BMI Care Goal Follow-Up Question Answer Notes Above Normal BMI Follow-Up Giving encouragement to exercise Tobacco Use: Question Answer Notes Are you a: never smoker REASON FOR REFERRAL No Information VITAL SIGNS No information MEDICATIONS Medication SIG (Take, Route, Frequency, Duration) Notes Start Da te End Date Status Amitriptyline HCl 50 MG 1 tablet at bedtime Orally O nce a day at bed time for 90 Active Glucometer as directed _ E11.9 for 30 day(s) Nov, Active ZyrTEC 10 mg 1 tablet Orally Once a day for 30 day(s) Active Pen [place] 31G X 6 MM as directed subcutaneously E11.9, before bed for 90 Active Glimepiride 1 MG 1 tablet with breakfast or t he first main meal of the day Orally Once a day for 90 days Ac tive Nystatin 079149 UNIT/GM 1 application to affected ar ea Externally Twice a day for 10 day(s) Apr, Active Ramipril 10 mg 1 capsule Orally Once a day for 90 Active Drisdol 50,000 units 1 tab orally weekly for 90 day(s) Active Omeprazole 40 MG 1 capsule Orally Once a day for 90 Active Chlorthalidone 25 mg 1 tablet in the morning with food Orally Once a day for 90 day(s) Active Benzonatate 100 MG 1-2 capsule as needed Orally Three times a day for 10 day(s) Jun, Active Flonase 50 MCG/ACT 1 spray in each nostril Nasally Once a day for 3 0 day(s) Active Potassium Chloride CR 20 MEQ 1 tablet Orally daily for 90 day(s) Active Metformin HCl 1000 mg 1 tablet with meals Orally Once a day for 90 Active One touch ultra blue as directed DX:E11.9 twice daily for 100 da ys Nov, Active Toujeo SoloStar 300 UNIT/ML 85 units Subcutaneous before bedtime for 31 Active Escitalopram Oxalate 20 MG 1 tablet Orally Once a day for 90 Active Fish Oil 1000 MG 2 capsule Orally twice daily for 90 day(s) Oct, Active Naproxen 500 MG 1 tablet Orally Twice a day for 90 day(s) Active Trulicity 1.5 MG/0.5ML 0.5 ml Subcutaneous Weekly for 30 day(s) Active Atorvastatin Calcium 40 MG 1 tablet Orally Once a day for 90 Active Levothyroxine Sodium 125 MCG 1 tablet on an empty stom ach in the morning Orally Once a day for 90 Active Lancets One touch DX code 250.00 as directed DX:E11.9 Twice a day for 30 day(s) Active PROCEDURES No Information RESULTS No Results REASON FOR VISIT PA T[place]olit[place] SoloStar 300unit/ml pen-injectors MEDICAL (GENERAL) HISTORY Type Description Date Medical [...] History colonoscopy 06/06 Bruno westfall h diverticulosis, 2003 had hyperplastic polyp Medical History SENAIT 08/09, [...] No Information FUNCTIONAL STATUS No Information ASSESSMENTS No Information PLAN OF TREATMENT Medication Medication Name Sig Start Date Stop Date Pen [place] 31G X 6 MM as directed subcutaneously E11.9, before bed for 90 Amitriptyline HCl 50 MG 1 tablet at bedtime Orally O nce a day at bed time for 90 Toujeo SoloStar 300 UNIT/ML 85 units Subcutaneous before bedtime for 31 Next Appt Details Provider Name:Felicia Velasco, 2020-05-23 11:30:00 AM, [address], [place], [address], Insurance Providers Payer Name Payer Address Payer Phone Insured Name Patient Relati onship to Insured Coverage Start Date Coverage End Date AETNA MEDICARE AETNA LIFE INSURANCE [place] [address] [facility] [phone] JACOBY HAYWOOD self
--- OUTSIDE RECORDS SUMMARY | 2020-06-10 04:58 | CCD ---
Author Author [facility] Organization [facility] Address Unknown Phone Unavailable Care Team Providers Care Fermentation Engineer Name Role Phone Felicia Velasco Unavailable PROBLEMS Type Condition ICD9-CM Code WOW12-VS Code Onset Dates Condition S tatus W/U Status Risk SNOMED Code Notes Problem Dyspepsia K30 Active confirmed 439241310 Problem Essential (primary) hypertension I10 Active conf irmed 98802028 Problem Diverticulosis of large intestine without hemorrhage K57.30 Active confirmed 446830341 Problem Morbid (severe) obesity due to excess calories E66 .01 Active confirmed 718289387 Problem Hypomagnesemia E83.42 Active confirmed 44231 5004 Problem Obstructive sleep apnea (adult) (pediatric) G47.33 Active confirmed 82386386 Problem Vitamin D deficiency, unspecified E55.9 Active con firmed 26522813 Problem Full incontinence of feces R15.9 Active confirmed 80668983 Problem Urge incontinence of urine N39.41 Active confirmed 47408337 Problem Fatty liver K76.0 Active confirmed 48075793 7 Problem intermediate frame tender (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) use of insulin Z79.4 Activ e confirmed 699429820 Problem Hypothyroidism, unspecified E03.9 Active confirmed 63808074 Problem Type 2 diabetes mellitus with hyperglycemia E11.65 Active confirmed 07037758 Problem Postconcussional syndrome F07.81 Active confirmed 05187136 Problem Constipation, unspecified constipation type K59.00 Active confirmed 20895750 Problem Abnormal mammogram R92.8 Active confirmed 1 22045666 Problem Mixed hyperlipidemia E78.2 Active confirmed 014342933 Problem Medicare annual wellness visit, subsequent Z00.00 Active confirmed 932329265 ALLERGIES No Known Allergies ENCOUNTERS from 1950 to 2020-06-03 Encounter Location Date Provider Diagnosis [facility] [address] [place] [address] May, Mar wilman Velasco Type 2 diabetes mellitus with hyperglycemia E11.65 ; shelter (current) use of insulin Z79.4 and Dry mouth R68.2 IMMUNIZATIONS Vaccine Route Administration Date Status Influenza [...] Education Language: Question Answer Notes Languages spoken: Persian Episcopal: Question Answer Notes Episcopal 13 Episcopalian Sexual Hx: Question Answer Notes Had sex [...] REASON FOR REFERRAL No Information VITAL SIGNS Weight 254 lbs May, Height 61 in May, BMI 47.99 kg/m2 May, Heart Rate 85 /min May, Respiratory Rate 18 /min May, Temperature 96.7 degrees Fahrenheit May, Oximetry 96 May, Blood pressure systolic 128 mm Hg May, Blood pressure diastolic 76 mm Hg May, MEDICATIONS Medication SIG (Take, Route, Frequency, Duration) Notes Start Da te End Date Status Fish Oil 1000 MG 2 capsule Orally twice daily for 90 day(s) Oct, Active Trulicity 0.75 MG/0.5ML INJECT CONTENTS OF 1 PEN UND ER THE SKIN EVERY WEEK for 28 Active Pen [place] 31G X 6 MM 1 injection subcutaneously [...] a day for 90 day(s) Active Nystatin 930968 UNIT/GM 1 application to affected ar ea Externally Twice a day for 10 day(s) Apr, Active One touch ultra blue as directed DX:E11.9 twice daily for 100 da ys Nov, Active NovoLIN R FlexPen 100 UNIT/ML -2 14 units subcutaneous ly 4 x daily, MDD 64 units for 90 day(s) May, Active PROCEDURES No Information RESULTS Component Value Reference Range C-PEPTIDE Reviewed date:06/01/2020 09:44:36 Interpretation: Performing Lab:[facility], [facility] [address] [place] [id number] , ,[place] [id number] C-PEPTIDE 5.1 1.1-4.4 REASON FOR VISIT [phone]/review labs MEDICAL (GENERAL) HISTORY Type Description Date Medical [...] Treatment Notes Treatm ent Clinical Notes May, Type 2 diabetes mellitus with hyperglycemia (ICD -10 - E11.65) 05/18 glu 266, A1c 11.4%, urine microalb/cr 20. She is taking Toujeo 45 units BID, reports compliance. Will start Novolog SSI, SSI reviewed directions and SS with pt, copy scanned into the chart. Pt to call with concerns. Counseled on cons carb diet. Check Cpeptide today. May, intermediate frame tender (current) use of insulin (ICD-10 - Z79 .4) May, Dry mouth (ICD-10 - R68.2) Likely assoc with amitriptylline, takes this for sleep, she will cut dose in half and see how she does. PLAN OF TREATMENT Medication Medication Name Sig Start Date Stop Date Pen [place] 31G X 6 MM 1 injection subcutaneously E 11.9, 6 times daily for 90 days NovoLIN R FlexPen 100 UNIT/ML -2 14 units subcutaneous ly 4 x daily, MDD 64 units for 90 day(s) May, Trulicity 0.75 MG/0.5ML INJECT CONTENTS OF 1 PEN UND ER THE SKIN EVERY WEEK for 28 Treatment Notes Assessment Notes Clinical Notes Type 2 diabetes mellitus with hyperglycemia 05/18 glu 2 66, A1c 11.4%, urine microalb/cr 20. She is taking Toujeo 45 units BID, reports compliance. Will start Novolog SSI, SSI reviewed directions and SS with pt, copy scanned into the chart. Pt to call with concerns. Counseled on cons carb diet. Check Cpeptide today. Dry mouth Likely assoc with amitriptyl line, takes this for sleep, she will cut dose in half and see how she does. Next Appt Details BW today, f/u in 2 w Reason: Provider Name:Felicia Velasco, 2020-06-19 01:45:00 PM, [address], [place], [address], Insurance Providers Payer Name Payer Address Payer Phone Insured Name Patient Relati onship to Insured Coverage Start Date Coverage End Date AETNA MEDICARE A[employer] [address] [facility] [phone] JACOBY HAYWOOD self
--- OUTSIDE RECORDS SUMMARY | 2020-06-10 04:58 | CCD ---
Author Author [facility] Organization [facility] Address Unknown Phone Unavailable Care Team Providers Care Wood Casket Assembler Name Role Phone Felicia Velasco Unavailable PROBLEMS Type Condition ICD9-CM Code [id number] Code Onset Dates Condition S tatus W/U Status Risk SNOMED Code Notes Problem Dyspepsia K30 Active confirmed 271902907 Problem Essential (primary) hypertension I10 Active conf irmed 72286214 Problem Diverticulosis of large intestine without hemorrhage K57.30 Active confirmed 354433080 Problem Morbid (severe) obesity due to excess calories E66 .01 Active confirmed 574262186 Problem Hypomagnesemia E83.42 Active confirmed 12740 5004 Problem Obstructive sleep apnea (adult) (pediatric) G47.33 Active confirmed 14976353 Problem Vitamin D deficiency, unspecified E55.9 Active con firmed 05607807 Problem Full incontinence of feces R15.9 Active confirmed 09751894 Problem Urge incontinence of urine N39.41 Active confirmed 06896258 Problem Fatty liver K76.0 Active confirmed 41013551 7 Problem technician terminal and repeater (current) use of insulin Z79.4 Activ e confirmed 903304985 Problem Hypothyroidism, unspecified E03.9 Active confirmed 20101294 Problem Type 2 diabetes mellitus with hyperglycemia E11.65 Active confirmed 78181285 Problem Postconcussional syndrome F07.81 Active confirmed 19495762 Problem Constipation, unspecified constipation type K59.00 Active confirmed 09036597 Problem Abnormal mammogram R92.8 Active confirmed 1 22003916 Problem Mixed hyperlipidemia E78.2 Active confirmed 991199779 Problem Medicare annual wellness visit, subsequent Z00.00 Active confirmed 520706392 ALLERGIES No Known Allergies ENCOUNTERS from 1950 to 2020-06-02 Encounter Location Date Provider Diagnosis [facility] [address] [address] [place] [address] May, Kacey wilman Velasco Type 2 diabetes mellitus with hyperglycemia E11.65 IMMUNIZATIONS Vaccine Route Administration Date Status Influenza [...] School 10 grade Audit Question Answer Notes Interpretation: Alcohol Education Total Score: 0 Language: Question Answer Notes Languages spoken: Latvian Mormonism: Question Answer Notes Mormonism 13 Worship Sexual Hx: Question Answer Notes [...] SKIN EVERY WEEK for 28 Active Pen [place] 31G X 6 MM 1 injection subcutaneously [...] a day for 90 day(s) Active Nystatin 543311 UNIT/GM 1 application to affected ar ea Externally Twice a day for 10 day(s) Apr, Active One touch ultra blue as directed DX:E11.9 twice daily for 100 da ys Nov, Active NovoLIN R FlexPen 100 UNIT/ML -2 14 units subcutaneous ly 4 x daily, MDD 64 units for 90 day(s) May, Active PROCEDURES No Information RESULTS No Results REASON FOR VISIT labs MEDICAL (GENERAL) HISTORY Type Description Date [...] mellitus with hyperglycemia (ICD -10 - E11.65) PLAN OF TREATMENT Medication Medication Name Sig Start Date Stop Date Pen [place] 31G X 6 MM 1 injection subcutaneously E 11.9, 6 times daily for 90 days NovoLIN R FlexPen 100 UNIT/ML -2 14 units subcutaneous ly 4 x daily, MDD 64 units for 90 day(s) May, Trulicity 0.75 MG/0.5ML INJECT CONTENTS OF 1 PEN UND ER THE SKIN EVERY WEEK for 28 Future Test Test Name Order Date C-PEPTIDE [id number] Next Appt Details Provider Name:Felicia Velasco, 2020-06-19 01:45:00 PM, [address], [place], [address], Insurance Providers Payer Name Payer Address Payer Phone Insured Name Patient Relati onship to Insured Coverage Start Date Coverage End Date AETNA MEDICARE AETNA [employer] INSURANCE [place] [address] [facility] [phone] JACOBY HAYWOOD self
--- OUTSIDE RECORDS SUMMARY | 2020-06-10 04:58 | CCD ---
Author Author [facility] Organization [facility] Address Unknown Phone Unavailable Care Team Providers Care Convention Services Manager Name Role Phone Felicia Velasco Unavailable PROBLEMS Type Condition ICD9-CM Code QDA06-LL Code Onset Dates Condition S tatus W/U Status Risk SNOMED Code Notes Problem Dyspepsia K30 Active confirmed 011733126 Problem Essential (primary) hypertension I10 Active conf irmed 50810688 Problem Diverticulosis of large intestine without hemorrhage K57.30 Active confirmed 833418085 Problem Morbid (severe) obesity due to excess calories E66 .01 Active confirmed 631183368 Problem Hypomagnesemia E83.42 Active confirmed 18249 5004 Problem Obstructive sleep apnea (adult) (pediatric) G47.33 Active confirmed 61538587 Problem Vitamin D deficiency, unspecified E55.9 Active con firmed 98452679 Problem Full incontinence of feces R15.9 Active confirmed 22946501 Problem Urge incontinence of urine N39.41 Active confirmed 54363959 Problem Fatty liver K76.0 Active confirmed 28442517 7 Problem computer terminal operator (current) use of insulin Z79.4 Activ e confirmed 801621839 Problem Hypothyroidism, unspecified E03.9 Active confirmed 24524157 Problem Type 2 diabetes mellitus with hyperglycemia E11.65 Active confirmed 06317786 Problem Postconcussional syndrome F07.81 Active confirmed 34502167 Problem Constipation, unspecified constipation type K59.00 Active confirmed 78018342 Problem Abnormal mammogram R92.8 Active confirmed 1 78383894 Problem Mixed hyperlipidemia E78.2 Active confirmed 145859884 Problem Medicare annual wellness visit, subsequent Z00.00 Active confirmed 795106182 ALLERGIES No Known Allergies ENCOUNTERS from 1950 to 2020-06-05 Encounter Location Date Provider Diagnosis [facility] [address] [place] [address] Apr, Kacey Velasco Medicare annual wellness visit, subsequent Z00.00 ; Essential (primary) hypertension I10 ; Morbid (severe) obesity due to excess calories E66.01 ; Hypomagnesemia E83.42 ; Obstructive sleep apnea (adult) (pediatric) G47.33 ; Type 2 diabetes mellitus without complications E11.9 ; Hypothyroidism, unspecified E03.9 ; Mixed hyperlipidemia E78.2 ; Breast screening Z12.39 and Encounter for immunization Z23 IMMUNIZATIONS Vaccine Route Administration Date Status Influenza [...] Education Language: Question Answer Notes Languages spoken: Macedonian Uatsdin: Question Answer Notes Uatsdin 13 Adventist Sexual Hx: Question Answer Notes Had sex [...] FOR REFERRAL No Information VITAL SIGNS Weight 253 lbs Apr, Height 61 in Apr, BMI 47.80 kg/m2 Apr, Heart Rate 87 /min Apr, Respiratory Rate 20 /min Apr, Temperature 96.2 degrees Fahrenheit Apr, Oximetry 95 Apr, Blood pressure systolic 170 mm Hg Apr, Blood pressure diastolic 100 mm Hg Apr, MEDICATIONS Medication SIG (Take, Route, Frequency, Duration) Notes Start Da te End Date Status Fish Oil 1000 MG 2 capsule Orally twice daily for 90 day(s) Oct, Active Trulicity 0.75 MG/0.5ML INJECT CONTENTS OF 1 PEN UND ER THE SKIN EVERY WEEK for 28 Active Pen [place] 31G X 6 MM 1 injection subcutaneously E 11.9, 6 times daily for 90 days Active Toujosé miguelo SoloStar 300 UNIT/ML 45 units Subcutaneous twice [...] a day for 90 day(s) Active Nystatin 246076 UNIT/GM 1 application to affected ar ea Externally Twice a day for 10 day(s) Apr, Active One touch ultra blue as directed DX:E11.9 twice daily for 100 da ys Nov, Active NovoLIN R FlexPen 100 UNIT/ML -2 14 units subcutaneous ly 4 x daily, MDD 64 units for 90 day(s) May, Active PROCEDURES from 1950 to 2020-06-05 Procedure Date Ordered Result Body Site Immunization: Prevnar 13 0.5mL IM (Pneumococcal) 2020-05-23 N/A RESULTS Component Value Reference Range CBC with Differential Reviewed date:05/25/2020 09:15:48 Interpretation: Performing Lab:[facility]ORAT[facility] [address] [facility] [id number] , ,[place] [address] WHITE BLOOD COUNT 8.7 4.0-10.0 RED BLOOD COUNT 5.23 4.00-5.40 HEMOGLOBIN 14.7 12.0-15.5 HEMATOCRIT 45.6 36.0-47.0 MEAN CORPUSCULAR VOLUME 87.2 80.0-96.0 MEAN CORPUSCULAR HEMOGLOBIN 28.1 27.0-33.0 MEAN CORPUSCULAR HGB CONC 32.2 32.0-36.5 RED CELL DISTRIBUTION WIDTH 13.0 11.5-14.5 PLATELET COUNT, AUTOMATED 200 150-450 NEUTROPHILS % 48.0 36.0-66.0 LYMPH % 40.3 24.0-44.0 MONO % 8.2 0.0-5.0 EOS % 2.7 0.0-3.0 BASO % 0.6 0.0-1.0 NEUTROPHILS # 4.2 1.5-8.5 LYMPH # 3.5 1.5-5.0 MONO # 0.7 0.0-0.8 EOS # 0.2 0.0-0.5 BASO # 0.1 0.0-0.2 Comprehensive Metabolic Profile (CMP) Reviewed date:05/25/2020 09:15:48 Interpretation: Performing Lab:[facility] LABORATORY [address] [facility] [id number] , ,[place] [address] GLUCOSE, FASTING 266 70-100 BLOOD UREA NITROGEN 13 7-18 CREATININE FOR GFR 0.85 0.55-1.30 GLOMERULAR FILTRATION RATE > 60.0 >39 SODIUM LEVEL 138 136-145 POTASSIUM SERUM 4.3 3.5-5.1 CHLORIDE LEVEL 97 98-107 CARBON DIOXIDE LEVEL 35 21-32 CALCIUM LEVEL 9.9 8.8-10.2 AST/SGOT 22 7-37 ALT/SGPT 31 12-78 ALKALINE PHOSPHATASE 159 45-117 BILIRUBIN,TOTAL 1.2 0.2-1.0 TOTAL PROTEIN 7.1 6.4-8.2 ALBUMIN 3.6 3.2-5.2 ALBUMIN/GLOBULIN RATIO 1.0 1.2-2.2 HEMOGLOBIN A1c Reviewed date:05/25/2020 09:19:39 Interpretation: Performing Lab:[facility] LABORATORY [address] [place] [address] , ,[place] [address] HEMOGLOBIN A1c 11.4 ESTIMATED AVERAGE GLUCOSE 280 60-110 VITAMIN D 25-HYDROXY Reviewed date:05/25/2020 09:15:48 Interpretation: Performing Lab:[facility] [address] [place] [address] , ,[place] [address] TOTAL 25(OH) VITAMIN D 33.1 30.0-100.0 MAGNESIUM LEVEL Reviewed date:05/25/2020 09:15:48 Interpretation: Performing Lab:[facility] [address] [place] [address] , ,[place] [address] MAGNESIUM LEVEL 1.5 1.8-2.4 MICROALBUMIN RANDOM Reviewed date:05/25/2020 09:15:48 Interpretation: Performing Lab:[facility] [address] [place] [address] , ,[place] [address] CREATININE, URINE 46.8 MALB URINE SIEMENS 9.4 BRAULIO/CREAT RATIO 20.0 0.0-30.0 TSH Reviewed date:05/25/2020 09:15:48 Interpretation: Performing Lab:[facility] [address] [place] [address] , ,[place] [address] THYROID STIMULATING HORMONE 0.886 0.358-3.740 LIPID PANEL (CARDIAC RISK) Reviewed date:05/25/2020 09:15:48 Interpretation: Performing Lab:[facility], [facility] [address] [facility] [address] , ,[place] [address] TRIGLYCERIDES LEVEL 252 <150 CHOLESTEROL LEVEL 165 <200 HDL CHOLESTEROL 39 >40 LDL CHOLESTEROL 76 <100 NON-HDL-C 126 CHOLESTEROL RISK RATIO 4.230 <5 REASON FOR VISIT 6 month MEDICAL (GENERAL) HISTORY Type Description Date Medical [...] Notes Treatment Notes Treatm ent Clinical Notes Apr, Medicare annual wellness visit, subsequent (ICD- 10 - Z00.00) Counseled on RHM, safety, imms. Apr, Essential (primary) hypertension (ICD-10 - I10) Pressures elevated, unable to check at home. Reports compliance with meds. Enc weight loss, CATARINO diet. Recehck a t f/u. Apr, Morbid (severe) obesity due to excess calories ( ICD-10 - E66.01) Pt was counselled on the importance of diet and exercise in maintaining a healthy weight and that patients weight currently poses a health risk. Pt verbalizes understanding Apr, Hypomagnesemia (ICD-10 - E83.42) Due for BW Apr, Obstructive sleep apnea (adult) (pediatric) (ICD -10 - G47.33) Reports compliance with CPAP. Apr, Type 2 diabetes mellitus without complications ( ICD-10 - E11.9) Due for BW. Glu is consistently elevated, Rec increasing Toujeo from 85 units daily to 45 units BID, will plan to add SSI at f/u. Pt aware. Apr, Hypothyroidism, unspecified (ICD-10 - E03.9) Due for BW Apr, Mixed hyperlipidemia (ICD-10 - E78.2) Due for BW Apr, Breast screening (ICD-10 - Z12.39) Apr, Encounter for immunization (ICD-10 - Z23) Patient Educated with: PCV13 [id number].pdf (PCV13 [id number].pdf) Apr, Other 08/08 Tdap. Refus es PAP/Pelvic/CBE. Mammo 09/12, due pt aware, will place ordered. Colonoscopy 06/06 Bruno with diverticulosis, 7-10 y. 09/12 DEXA repeat in 5 y. Counseled on Shingrex. Denies having PN, PN13 today. PN13 PLAN OF TREATMENT Medication Medication Name Sig Start Date Stop Date Pen [place] 31G X 6 MM 1 injection subcutaneously E 11.9, 6 times daily for 90 days NovoLIN R FlexPen 100 UNIT/ML -2 14 units subcutaneous ly 4 x daily, MDD 64 units for 90 day(s) May, Trulicity 0.75 MG/0.5ML INJECT CONTENTS OF 1 PEN UND ER THE SKIN EVERY WEEK for 28 Treatment Notes Assessment Notes Clinical Notes Medicare annual wellness visit, subsequent Counseled on RHM, safety, imms. Essential (primary) hypertension Pressures elevated, u nable to check at home. Reports compliance with meds. Enc weight loss, CATARINO diet. Recehck a t f/u. Morbid (severe) obesity due to excess calories Pt was counselled on the importance of diet and exercise in maintaining a healthy weight and that patients weight currently poses a health risk. Pt verbalizes understanding Hypomagnesemia Due for BW Obstructive sleep apnea (adult) (pediatric) Reports complian ce with CPAP. Type 2 diabetes mellitus without complications Due for BW. Glu is consistently elevated, Rec increasing Toujeo from 85 units daily to 45 units BID, will plan to add SSI at f/u. Pt aware. Hypothyroidism, unspecified Due for BW Mixed hyperlipidemia Due for BW Encounter for immunization Patient Educated with: PCV1 3 [id number] (PCV13 [id number].pdf) Future Test Test Name Order Date Immunization: Pneumovax 23 0.5mL IM (Pneumococcal) [facility] Rafat Screening Bilateral (Ultrasound if Indicated ) (3D Mammo) 20200523 Next Appt Details BW today, fu in 3 w Reason: Provider Name:Felicia Velasco, 2020-06-19 01:45:00 PM, [address], [place], [address], Insurance Providers Payer Name Payer Address Payer Phone Insured Name Patient Relati onship to Insured Coverage Start Date Coverage End Date AETNA MEDICARE AETNA [employer] INSURANCE [place] [address] [facility] [address] JACOBY HAYWOOD self
--- OUTSIDE RECORDS SUMMARY | 2020-06-10 04:58 | CCD ---
Author Author [facility] Organization [facility] Address Unknown Phone Unavailable Care Team Providers Care Supervisor Mechanic Boilermaking Name Role Phone Felicia Velasco Unavailable PROBLEMS Type Condition ICD9-CM Code [id number] Code Onset Dates Condition S tatus SNOMED Code Notes Problem Diverticulosis of large intestine without hemorrhage K57.30 Active 817131459 Problem Dyspepsia K30 Active 156492747 Problem Essential (primary) hypertension I10 Active 98399588 Problem Hypomagnesemia E83.42 Active 373389766 Problem Vitamin D deficiency, unspecified E55.9 Active 96254347 Problem Morbid (severe) obesity due to excess calories E66 .01 Active 730541872 Problem Obstructive sleep apnea (adult) (pediatric) G47.33 Active 52502619 Problem Postconcussional syndrome F07.81 Active 127832 04 Problem Urge incontinence of urine N39.41 Active 68921 004 Problem Medicare annual wellness visit, subsequent Z00.00 Active 329637997 Problem Hypothyroidism, unspecified E03.9 Active 4093 0008 Problem Mixed hyperlipidemia E78.2 Active 325844272 Problem Type 2 diabetes mellitus without complications E11 .9 Active 834747292 Problem Full incontinence of feces R15.9 Active 61457 002 Problem Fatty liver K76.0 Active 174575184 Problem Constipation, unspecified constipation type K59.00 Active 40057025 Problem Abnormal mammogram R92.8 Active 237436910 ALLERGIES No Known Allergies ENCOUNTERS from 1950 to 2020-05-25 Encounter Location Date Provider Diagnosis [facility] [address] [place] [address] Apr, Kacey Velasco IMMUNIZATIONS Vaccine Route Administration Date Status [...] 0 Language: Question Answer Notes Languages spoken: Icelandic Muslim: Question Answer Notes Muslim 13 Denominational Sexual Hx: Question Answer Notes Had sex [...] Notes Start Da te End Date Status Benzonatate 100 MG 1-2 capsule as needed Orally Three times a day for 10 day(s) Jun, Active Drisdol 50,000 units 1 tab orally weekly for 90 day(s) Active Atorvastatin Calcium 40 MG 1 tablet Orally Once a day for 90 Active Ramipril 10 mg 1 capsule Orally Once a day for 90 Active Nystatin 454936 UNIT/GM 1 application to affected ar ea Externally Twice a day for 10 day(s) Apr, Active Levothyroxine Sodium 125 MCG 1 tablet on an empty stom ach in the morning Orally Once a day for 90 Active Toujeo SoloStar 300 UNIT/ML 45 units Subcutaneous twice daily for 30 days Active Escitalopram Oxalate 20 MG 1 tablet Orally Once a day for 90 Active Fish Oil 1000 MG 2 capsule Orally twice daily for 90 day(s) Oct, Active One touch ultra blue as directed DX:E11.9 twice daily for 100 da ys Nov, Active Amitriptyline HCl 50 MG 1 tablet at bedtime Orally O nce a day at bed time for 90 Active Chlorthalidone 25 mg 1 tablet in the morning with food Orally Once a day for 90 day(s) Active Flonase 50 MCG/ACT 1 spray in each nostril Nasally Once a day for 3 0 day(s) Active Naproxen 500 MG 1 tablet Orally Twice a day for 90 day(s) Active Potassium Chloride CR 20 MEQ 1 tablet Orally daily for 90 day(s) Active ZyrTEC 10 mg 1 tablet Orally Once a day for 30 day(s) Active Omeprazole 40 MG 1 capsule Orally Once a day for 90 Active Glucometer as directed _ E11.9 for 30 day(s) Nov, Active Glimepiride 1 MG 1 tablet with breakfast or t he first main meal of the day Orally Once a day for 90 days Ac tive Lancets One touch DX code 250.00 as directed DX:E11.9 Twice a day for 30 day(s) Active Metformin HCl 1000 mg 1 tablet with meals Orally Once a day for 90 Active Pen [place] 31G X 6 MM as directed subcutaneously E11.9, before bed for 90 Active PROCEDURES No Information RESULTS No Results REASON FOR VISIT [facility] MEDICAL (GENERAL) HISTORY Type Description Date Medical [...] Medication Name Sig Start Date Stop Date Carrie Butcherar 300 UNIT/ML 45 units Subcutaneous twice daily fo r 30 days Next Appt Details Provider Name:Felicia Velasco, 2020-05-29 01:30:00 PM, [address], [place], [address], Insurance Providers Payer Name Payer Address Payer Phone Insured Name Patient Relati onship to Insured Coverage Start Date Coverage End Date AETNA MEDICARE AETNA [employer] INSURANCE [employer] [address] [facility] [id number] JACOBY HAYWOOD self
--- OUTSIDE RECORDS SUMMARY | 2020-06-10 04:59 | CCD ---
Author Author [facility] Organization [facility] Address Unknown Phone Unavailable Care Team Providers Care Technical Assistance Consultant Name Role Phone NRI, 318 Unavailable Unavailable RING, K JESS PA Unavailable Unavailable RING, K JESS PA Unavailable Unavailable RING, K JESS PA Unavailable Unavailable RING, K JESS PA Unavailable Unavailable RING, K JESS PA Unavailable Unavailable RING, K JESS PA Unavailable Unavailable RING, K JESS PA Unavailable Unavailable RING, K JESS PA Unavailable Unavailable RING, K JESS PA Unavailable Unavailable RING, K JESS PA Unavailable Unavailable RING, K JESS PA Unavailable Unavailable RING, K JESS PA Unavailable Unavailable RING, K JESS PA Unavailable Unavailable RING, K JESS PA Unavailable Unavailable RING, K JESS PA Unavailable Unavailable RING, K JESS PA Unavailable Unavailable RING, K JESS PA Unavailable Unavailable RING, K JESS PA Unavailable Unavailable RING, K JESS PA Unavailable Unavailable RING, K JESS PA Unavailable Unavailable RING, K JESS PA Unavailable Unavailable Re-disclosure Warning The records that you are about to access may contain information from federally-assisted alcohol or drug abuse programs. If such information is present, then the following federally mandated warning applies: This information has been disclosed to you from records protected by federal confidentiality rules (42 CFR part 2). The federal rules prohibit you from making any further disclosure of this information unless further disclosure is expressly permitted by the written consent of the person to whom it pertains or as otherwise permitted by 42 CFR part 2. A general authorization for the release of medical or other information is NOT sufficient for this purpose. The Federal rules restrict any use of the information to criminally investigate or prosecute any alcohol or drug abuse patient.The records that you are about to access may contain highly sensitive health information, the redisclosure of which is protected by Article 27-F of the [facility] Public Health law. If you continue you may have access to information: Regarding HIV / AIDS; Provided by facilities licensed or operated by the [facility] Office of Mental Health; or Provided by the [facility] Office for People With Developmental Disabilities. If such information is present, then the following [facility] mandated warning applies: This information has been disclosed to you from confidential records which are protected by state law. State law prohibits you from making any further disclosure of this information without the specific written consent of the person to whom it pertains, or as otherwise permitted by law. Any unauthorized further disclosure in violation of state law may result in a fine or senior care sentence or both. A general authorization for the release of medical or other information is NOT sufficient authorization for further disc losure. Family History Family Member Name Family Member Gender Family Member Status Date o f Status Description Data Source(s) Unknown Male Problem MEDENT ([facility] ) () Unknown Unknown Problem MEDENT ([facility]) Unknown Unknown Problem MEDENT ([facility]) Unknown Unknown Problem MEDENT ([facility]) Encounters Encounter Providers Location Date Indications Data Source(s ) Unknown [address] [facility] [address] 06/07/2020 12:00:00 AM EST eCW1 ([facility]) [place] [address] [facility] [address] 06/01/2020 12:00:00 AM EST eCW1 ([facility]) Office Visit, Est Pt., Level [address] [place] [address] 05/29/2020 12:00:00 AM EST eCW1 ([facility]) [place] [address] [facility] [address] 05/24/2020 12:00:00 AM EST eCW1 ([facility]) [place] [address] [facility] [address] 05/23/2020 12:00:00 AM EST eCW1 ([facility]) [place] [address] [facility] [address] 05/12/2020 12:00:00 AM EST eCW1 ([facility]) [place] [address] [facility] [address] 02/10/2020 12:00:00 AM EDT eCW1 ([facility]) [facility] [place] [address] [facility] [place] [address] 09/17/2019 12:00:00 AM EDT eCW1 ([facility]) [facility] [place] [address] [place] [address], [place] [address] 09/17/2019 12:00:00 AM EDT eCW1 ([facility]) [facility] [place] [address] [place] [address], [place] [address] 09/08/2019 12:00:00 AM EDT eCW1 ([facility]) [facility] [place] [address] [place] [address], [place] [address] 09/03/2019 12:00:00 AM EDT eCW1 ([facility]) [facility] [place] [address] [place] [address], [place] [address] 08/17/2019 12:00:00 AM EDT eCW1 ([facility]) [facility] [place] [address] [place] [address] [place] [address] 07/20/2019 12:00:00 AM EDT eCW1 ([facility]) [facility] [place] [address] [place] [address], [place] [address] 07/20/2019 12:00:00 AM EDT eCW1 ([facility]) Outpatient Referrer: 318 NRI 07/18/2019 09:55:00 AM EDT [facility] [place] [address] [facility] [address] 07/14/2019 12:00:00 AM EDT eCW1 ([facility]) Outpatient Referrer: 318 NRI 06/24/2019 06:21:00 PM EST [facility] Outpatient Attender: JESS Astorga 06/16/2019 12:15:00 PM EST MEDENT ([facility]) [facility] [place] [address] [facility] [address] 06/16/2019 12:00:00 AM EST eCW1 ([facility]) [facility] [place] [address] [facility] [address] 06/15/2019 12:00:00 AM EST eCW1 ([facility]) [facility] [place] [address] [facility] [address] 05/25/2019 12:00:00 AM EST eCW1 ([facility]) Immunizations Vaccine Date Status Description Data Source(s) Pneumococcal conjugate PCV 13 05/23/2020 11:52:00 AM EST completed eCW1 ([facility]) Pneumococcal conjugate PCV 13 05/23/2020 11:52:00 AM EST completed eCW1 ([facility]) Pneumococcal conjugate PCV 13 05/23/2020 11:52:00 AM EST completed eCW1 ([facility]) Pneumococcal conjugate PCV 13 05/23/2020 11:52:00 AM EST completed eCW1 ([facility]) Pneumococcal conjugate PCV 13 05/23/2020 11:52:00 AM EST completed eCW1 ([facility]) INFLUENZA VACCINE QUADRIVALENT 2019- (65 YR UP)/MF59 C.1/PF 03/13/2020 12:00:00 AM EST completed [facility] INFLUENZA VIRUS VACCINE TRIVAL SPLIT (65 YR U P)/PF 04/19/2019 12:00:00 AM EST completed [facility] Medications Medication Brand Name Start Date Product Form Dose Route Admi nistrative Instructions Pharmacy Instructions Status Indications Reaction Description Data Source(s) 0.75 mg/0.5 mL 05/30/2020 12:00:00 AM EST pen injector 2 INJECT CONTENTS OF 1 PEN UNDER THE SKIN EVERY WEEK INJECT CONTENTS OF 1 PEN UNDER THE SKIN EVERY WEEK SOLD: 05/31/2020 [facility] 31 gauge x 1/4" 05/30/2020 12:00:00 AM EST needle 540 USE 6 TIMES DAILY DIRECTED USE 6 TIMES DAILY DIRECTED SOLD: 05/31/2020 [facility] 100 unit/mL (3 mL) 05/30/2020 12:00:00 AM EST insulin pen 15 INJECT 2 -14 UNITS UNDER SKIN 4 TIMES A DAY, MAXIMUM DAILY DOSE = 64 UNITS INJECT 2 -14 UNITS UNDER SKIN 4 TIMES A DAY, MAXIMUM DAILY DOSE = 64 UNITS SOLD: 05/31/2020 [facility] NovoLIN R FlexPen 100 UNIT/ML NovoLIN R FlexPen 100 UNIT/ML 05/29/2020 12:00:00 AM EST active NovoLIN R FlexPen 100 UNIT/ML eCW1 ([facility]) NovoLIN R FlexPen 100 UNIT/ML NovoLIN R FlexPen 100 UNIT/ML 05/29/2020 12:00:00 AM EST active NovoLIN R FlexPen 100 UNIT/ML eCW1 ([facility]) NovoLIN R FlexPen 100 UNIT/ML NovoLIN R FlexPen 100 UNIT/ML 05/29/2020 12:00:00 AM EST active NovoLIN R FlexPen 100 UNIT/ML eCW1 ([facility]) NovoLIN R FlexPen 100 UNIT/ML NovoLIN R FlexPen 100 UNIT/ML 05/29/2020 12:00:00 AM EST active NovoLIN R FlexPen 100 UNIT/ML eCW1 ([facility]) 300 unit/mL (1.5 mL) 03/14/2020 12:00:00 AM EST insulin pen 13 INJECT 85 UNITS UNDER THE SKIN AT BEDTIME INJECT 85 UNITS UNDER THE SKIN AT BEDTIME SOLD: 03/21/2020 [facility] 50 mg 03/14/2020 12:00:00 AM EST tablet 90 TAKE ONE TABLET BY MOUTH AT BEDTIME TAKE ONE TABLET BY MOUTH AT BEDTIME SOLD: 03/21/2020 [facility] 300 unit/mL (1.5 mL) 03/14/2020 12:00:00 AM EST insulin pen 13 INJECT 85 UNITS UNDER THE SKIN AT BEDTIME INJECT 85 UNITS UNDER THE SKIN AT BEDTIME SOLD: 05/13/2020 [facility] 875 mg 03/14/2020 12:00:00 AM EST tablet 20 TAKE ONE TABLET BY MOUTH EVERY 12 HOURS FOR 10 DAYS TAKE ONE TABLET BY MOUTH EVERY 12 HOURS FOR 10 DAYS SO LD: 03/14/2020 [facility] 31 gauge x 1/4" 12/30/2019 12:00:00 AM EDT needle 100 USE DIRECTED BEFORE BEDTIME USE DIRECTED BEFORE BEDTIME SOLD: 03/21/2020 [facility] 31 gauge x 1/4" 12/30/2019 12:00:00 AM EDT needle 100 USE DIRECTED BEFORE BEDTIME USE DIRECTED BEFORE BEDTIME SOLD: 01/06/2020 [facility] 500 mg 12/15/2019 12:00:00 AM EDT tablet 180 TAKE ONE TABLET BY MOUTH TWICE A DAY TAKE ONE TABLET BY MOUTH TWICE A DAY SOLD: 12/18/2019 [facility] 500 mg 12/15/2019 12:00:00 AM EDT tablet 180 TAKE ONE TABLET BY MOUTH TWICE A DAY TAKE ONE TABLET BY MOUTH TWICE A DAY SOLD: 03/21/2020 [facility] atorvastatin 40 MG Oral Tablet ATORVASTATIN CALCIUM 12/14/2019 1 2:00:00 AM EDT tablet 90 TAKE ONE TABLET BY MOUTH EVERY D AY TAKE ONE TABLET BY MOUTH EVERY DAY SOLD: 03/21/2020 [facility] 40 mg 12/14/2019 12:00:00 AM EDT tablet 90 TAKE ONE TABLET BY MOUTH EVERY DAY TAKE ONE TABLET BY MOUTH EVERY DAY SOLD: 12/18/2019 [facility] glimepiride 1 MG Oral Tablet GLIMEPIRIDE 12/13/2019 12:00:00 AM EDT ta blet 90 TAKE ONE TABLET BY MOUTH EVERY DAY WITH FIRST MAIN MEAL OF THE DAY TAKE ONE TABLET BY MOUTH EVERY DAY WITH FIRST MAIN MEAL OF THE DAY SOLD: 03/21/2020 [facility] 25 mg 12/13/2019 12:00:00 AM EDT tablet 90 TAKE ONE TABLET BY MOUTH EVERY MORNING WITH FOOD TAKE ONE TABLET BY MOUTH EVERY MORNING WITH FOOD SOLD: 12/18/2019 [facility] 40 mg 12/13/2019 12:00:00 AM EDT capsule,delayed release (DR/EC) 90 TAKE ONE CAPSULE BY MOUTH EVERY DAY TAKE ONE CAPSULE BY MOUTH EVERY DAY SOLD: 03/21/2020 [facility] Ramipril 10 MG Oral Capsule RAMIPRIL 12/13/2019 12:00:00 AM EDT capsu le 90 TAKE ONE CAPSULE BY MOUTH EVERY DAY TAKE ONE CAPSULE BY MOUTH EVERY DAY SOLD: 03/21/2020 [facility] 125 mcg 12/13/2019 12:00:00 AM EDT tablet 90 TAKE ONE TABLET BY MOUTH EVERY MORNING ON AN EMPTY STOMACH TAKE ONE TABLET BY MOUTH EVERY MORNING O N AN EMPTY STOMACH SOLD: 03/21/2020 [facility] 20 mEq 12/13/2019 12:00:00 AM EDT tablet,ER particles/cry stals 90 TAKE ONE TABLET BY MOUTH EVERY DAY TAKE ONE TABLET BY MOUTH EVERY DAY SOLD: 03/21/2020 [facility] Escitalopram 20 MG Oral Tablet ESCITALOPRAM OXALATE 12/13/2019 1 2:00:00 AM EDT tablet 90 TAKE ONE TABLET BY MOUTH EVERY D AY TAKE ONE TABLET BY MOUTH EVERY DAY SOLD: 03/21/2020 [facility] 125 mcg 12/13/2019 12:00:00 AM EDT tablet 90 TAKE ONE TABLET BY MOUTH EVERY MORNING ON AN EMPTY STOMACH TAKE ONE TABLET BY MOUTH EVERY MORNING O N AN EMPTY STOMACH SOLD: 12/18/2019 [facility] 40 mg 12/13/2019 12:00:00 AM EDT capsule,delayed release (DR/EC) 90 TAKE ONE CAPSULE BY MOUTH EVERY DAY TAKE ONE CAPSULE BY MOUTH EVERY DAY SOLD: 12/18/2019 [facility] glimepiride 1 MG Oral Tablet GLIMEPIRIDE 12/13/2019 12:00:00 AM EDT ta blet 90 TAKE ONE TABLET BY MOUTH EVERY DAY WITH FIRST MAIN MEAL OF THE DAY TAKE ONE TABLET BY MOUTH EVERY DAY WITH FIRST MAIN MEAL OF THE DAY SOLD: 12/18/2019 [facility] 20 mEq 12/13/2019 12:00:00 AM EDT tablet,ER particles/cry stals 90 TAKE ONE TABLET BY MOUTH EVERY DAY TAKE ONE TABLET BY MOUTH EVERY DAY SOLD: 12/18/2019 [facility] Escitalopram 20 MG Oral Tablet ESCITALOPRAM OXALATE 12/13/2019 1 2:00:00 AM EDT tablet 90 TAKE ONE TABLET BY MOUTH EVERY D AY TAKE ONE TABLET BY MOUTH EVERY DAY SOLD: 12/18/2019 [facility] Metformin hydrochloride 1000 MG Oral Tablet 1,000 mg METFORM IN HCL 12/13/2019 12:00:00 AM EDT tablet 90 TAKE ONE TABLET BY MOUTH EVERY DAY WITH MEALS TAKE ONE TABLET BY MOUTH EVERY DAY WITH MEALS SOLD: 03/21/2020 [facility] 25 mg 12/13/2019 12:00:00 AM EDT tablet 90 TAKE ONE TABLET BY MOUTH EVERY MORNING WITH FOOD TAKE ONE TABLET BY MOUTH EVERY MORNING WITH FOOD SOLD: 03/21/2020 [facility] 10 mg 12/13/2019 12:00:00 AM EDT capsule 90 TAKE ONE CAPSULE BY MOUTH EVERY DAY TAKE ONE CAPSULE BY MOUTH EVERY DAY SOLD: 12/18/2019 [facility] 1,000 mg 12/13/2019 12:00:00 AM EDT tablet 90 TAKE ONE TABLET BY MOUTH EVERY DAY WITH MEALS TAKE ONE TABLET BY MOUTH EVERY DAY WITH MEALS SOLD: 12/18/2019 [facility] 50 mg 09/09/2019 12:00:00 AM EDT tablet 90 TAKE ONE TABLET BY MOUTH AT BEDTIME TAKE ONE TABLET BY MOUTH AT BEDTIME SOLD: 09/17/2019 [facility] 50 mg 09/09/2019 12:00:00 AM EDT tablet 90 TAKE ONE TABLET BY MOUTH AT BEDTIME TAKE ONE TABLET BY MOUTH AT BEDTIME SOLD: 12/18/2019 [facility] 300 unit/mL (1.5 mL) 09/03/2019 12:00:00 AM EDT insulin pen 9 INJECT 85 UNITS UNDER THE SKIN BEFORE BEDTIME INJECT 85 UNITS UNDER THE SKIN BEFORE BEDTIME SOLD: 2020 [facility] 300 unit/mL (1.5 mL) 09/03/2019 12:00:00 AM EDT insulin pen 9 INJECT 85 UNITS UNDER THE SKIN BEFORE BEDTIME INJECT 85 UNITS UNDER THE SKIN BEFORE BEDTIME SOLD: 10/10/2019 [facility] 300 unit/mL (1.5 mL) 09/03/2019 12:00:00 AM EDT insulin pen 9 INJECT 85 UNITS UNDER THE SKIN BEFORE BEDTIME INJECT 85 UNITS UNDER THE SKIN BEFORE BEDTIME SOLD: 01/20/2020 [facility] 300 unit/mL (1.5 mL) 09/03/2019 12:00:00 AM EDT insulin pen 9 INJECT 85 UNITS UNDER THE SKIN BEFORE BEDTIME INJECT 85 UNITS UNDER THE SKIN BEFORE BEDTIME SOLD: 12/18/2019 [facility] 300 unit/mL (1.5 mL) 09/03/2019 12:00:00 AM EDT insulin pen 9 INJECT 85 UNITS UNDER THE SKIN BEFORE BEDTIME INJECT 85 UNITS UNDER THE SKIN BEFORE BEDTIME SOLD: 09/03/2019 [facility] 300 unit/mL (1.5 mL) 09/03/2019 12:00:00 AM EDT insulin pen 9 INJECT 85 UNITS UNDER THE SKIN BEFORE BEDTIME INJECT 85 UNITS UNDER THE SKIN BEFORE BEDTIME SOLD: 10/30/2019 [facility] 31 gauge x 1/4" 08/09/2019 12:00:00 AM EDT needle 100 USE BEFORE BED DIRECTED USE BEFORE BED DIRECTED SOLD: 08/10/2019 [facility] 31 gauge x 1/4" 08/09/2019 12:00:00 AM EDT needle 100 USE BEFORE BED DIRECTED USE BEFORE BED DIRECTED SOLD: 10/27/2019 [facility] benzonatate 100 MG Oral Capsule Benzonatate 100 MG Benzonata te 100 MG 07/20/2019 12:00:00 AM EDT active Benzonat ate 100 MG eCW1 ([facility]) benzonatate 100 MG Oral Capsule Benzonatate 100 MG Benzonata te 100 MG 07/20/2019 12:00:00 AM EDT active Benzonat ate 100 MG eCW1 ([facility]) benzonatate 100 MG Oral Capsule Benzonatate 100 MG Benzonata te 100 MG 07/20/2019 12:00:00 AM EDT active 1-2 caps ule as needed eCW1 ([facility]) benzonatate 100 MG Oral Capsule Benzonatate 100 MG Benzonata te 100 MG 07/20/2019 12:00:00 AM EDT active 1-2 caps ule as needed eCW1 ([facility]) benzonatate 100 MG Oral Capsule Benzonatate 100 MG Benzonata te 100 MG 07/20/2019 12:00:00 AM EDT active Benzonat ate 100 MG eCW1 ([facility]) benzonatate 100 MG Oral Capsule Benzonatate 100 MG Benzonata te 100 MG 07/20/2019 12:00:00 AM EDT active Benzonat ate 100 MG eCW1 ([facility]) benzonatate 100 MG Oral Capsule BENZONATATE 07/20/2019 12:00:00 AM EDT capsule 50 TAKE 1-2 CAPSULES BY MOUTH NEEDED THR EE TIMES A DAY FOR 10 DAYS TAKE 1-2 CAPSULES BY MOUTH NEEDED THREE TIMES A DAY FOR 10 DAYS SOLD: 07/20/2019 [facility] benzonatate 100 MG Oral Capsule Benzonatate 100 MG Benzonata te 100 MG 07/20/2019 12:00:00 AM EDT active Benzonat ate 100 MG eCW1 ([facility]) benzonatate 100 MG Oral Capsule Benzonatate 100 MG Benzonata te 100 MG 07/20/2019 12:00:00 AM EDT active Benzonat ate 100 MG eCW1 ([facility]) benzonatate 100 MG Oral Capsule Benzonatate 100 MG Benzonata te 100 MG 07/20/2019 12:00:00 AM EDT active Benzonat ate 100 MG eCW1 ([facility]) 40 mg 06/17/2019 12:00:00 AM EST tablet 90 TAKE ONE TABLET BY MOUTH EVERY DAY TAKE ONE TABLET BY MOUTH EVERY DAY SOLD: 06/22/2019 [facility] 40 mg 06/17/2019 12:00:00 AM EST tablet 90 TAKE ONE TABLET BY MOUTH EVERY DAY TAKE ONE TABLET BY MOUTH EVERY DAY SOLD: 09/17/2019 [facility] 90 mcg/actuation 06/16/2019 12:00:00 AM EST HFA aerosol inha ler 8 INHALE TWO PUFFS BY MOUTH EVERY 4 TO 6 HOURS NEEDED FOR COUGH AND WHEEZING INHALE TWO PUFFS BY MOUTH EVERY 4 TO 6 HOURS NEEDED FOR COUGH AND WHEEZING SOLD: 06/16/2019 [facility] 10 mg 06/16/2019 12:00:00 AM EST tablet 12 TAKE ONE TABLET BY MOUTH THREE TIMES A DAY FOR 4 DAYS TAKE ONE TABLET BY MOUTH THREE TIMES A DAY FOR 4 DAYS SOLD: 06/16/2019 [facility] Doxycycline Monohydrate 100 MG Oral Capsule Doxycycline [place] hydrate 06/16/2019 12:00:00 AM EST ORAL active M EDENT ([facility]) 200 ACTUAT Albuterol 0.09 MG/ACTUAT Metered Dose Inhaler [Pr oAir] Proair HFA 06/16/2019 12:00:00 AM EST ORAL active MEDENT ([facility]) Prednisone 10 MG Oral Tablet Prednisone 06/16/2019 12:00:00 AM EST ORAL active MEDENT ([facility] 100 mg 06/16/2019 12:00:00 AM EST capsule 20 TAKE ONE CAPSULE BY MOUTH TWICE A DAY FOR 10 DAYS TAKE ONE CAPSULE BY MOUTH TWICE A DAY FOR 10 DAYS SOLD : 06/16/2019 [facility] 40 mg 06/15/2019 12:00:00 AM EST capsule,delayed release (DR/EC) 90 TAKE ONE CAPSULE BY MOUTH EVERY DAY TAKE ONE CAPSULE BY MOUTH EVERY DAY SOLD: 06/22/2019 [facility] glimepiride 1 MG Oral Tablet GLIMEPIRIDE 06/15/2019 12:00:00 AM EST ta blet 90 TAKE 1 TABLET BY MOUTH WITH BREAKFAST OR THE FIRST MAIN MEAL OF THE DAY TAKE 1 TABLET BY MOUTH WITH BREAKFAST OR THE FIRST MAIN MEAL OF THE DAY SOLD: 09/17/2019 [facility] Escitalopram 20 MG Oral Tablet ESCITALOPRAM OXALATE 06/15/2019 1 2:00:00 AM EST tablet 90 TAKE ONE TABLET BY MOUTH EVERY D AY TAKE ONE TABLET BY MOUTH EVERY DAY SOLD: 09/17/2019 [facility] 125 mcg 06/15/2019 12:00:00 AM EST tablet 90 TAKE ONE TABLET BY MOUTH EVERY MORNING ON EMPTY STOMACH TAKE ONE TABLET BY MOUTH EVERY MORNING O N EMPTY STOMACH SOLD: 09/17/2019 [facility] 40 mg 06/15/2019 12:00:00 AM EST capsule,delayed release (DR/EC) 90 TAKE ONE CAPSULE BY MOUTH EVERY DAY TAKE ONE CAPSULE BY MOUTH EVERY DAY SOLD: 09/17/2019 [facility] 10 mg 06/15/2019 12:00:00 AM EST capsule 90 TAKE ONE CAPSULE BY MOUTH EVERY DAY TAKE ONE CAPSULE BY MOUTH EVERY DAY SOLD: 09/17/2019 [facility] 10 mg 06/15/2019 12:00:00 AM EST capsule 90 TAKE ONE CAPSULE BY MOUTH EVERY DAY TAKE ONE CAPSULE BY MOUTH EVERY DAY SOLD: 06/22/2019 [facility] glimepiride 1 MG Oral Tablet GLIMEPIRIDE 06/15/2019 12:00:00 AM EST ta blet 90 TAKE 1 TABLET BY MOUTH WITH BREAKFAST OR THE FIRST MAIN MEAL OF THE DAY TAKE 1 TABLET BY MOUTH WITH BREAKFAST OR THE FIRST MAIN MEAL OF THE DAY SOLD: 06/22/2019 [facility] Escitalopram 20 MG Oral Tablet ESCITALOPRAM OXALATE 06/15/2019 1 2:00:00 AM EST tablet 90 TAKE ONE TABLET BY MOUTH EVERY D AY TAKE ONE TABLET BY MOUTH EVERY DAY SOLD: 06/22/2019 [facility] 25 mg 06/15/2019 12:00:00 AM EST tablet 90 TAKE ONE TABLET BY MOUTH EVERY MORNING WITH FOOD TAKE ONE TABLET BY MOUTH EVERY MORNING WITH FOOD SOLD: 06/22/2019 [facility] 25 mg 06/15/2019 12:00:00 AM EST tablet 90 TAKE ONE TABLET BY MOUTH EVERY MORNING WITH FOOD TAKE ONE TABLET BY MOUTH EVERY MORNING WITH FOOD SOLD: 09/17/2019 [facility] 1,000 mg 06/15/2019 12:00:00 AM EST tablet 90 TAKE ONE TABLET BY MOUTH EVERY DAY WITH MEALS TAKE ONE TABLET BY MOUTH EVERY DAY WITH MEALS SOLD: 09/17/19 [facility] 1,000 mg 06/15/2019 12:00:00 AM EST tablet 90 TAKE ONE TABLET BY MOUTH EVERY DAY WITH MEALS TAKE ONE TABLET BY MOUTH EVERY DAY WITH MEALS SOLD: 06/22/19 20 [facility] 20 mEq 06/15/2019 12:00:00 AM EST tablet,ER particles/cry stals 90 TAKE ONE TABLET BY MOUTH EVERY DAY TAKE ONE TABLET BY MOUTH EVERY DAY SOLD: 06/22/2019 [facility] 125 mcg 06/15/2019 12:00:00 AM EST tablet 90 TAKE ONE TABLET BY MOUTH EVERY MORNING ON EMPTY STOMACH TAKE ONE TABLET BY MOUTH EVERY MORNING O N EMPTY STOMACH SOLD: 06/22/2019 [facility] 20 mEq 06/15/2019 12:00:00 AM EST tablet,ER particles/cry stals 90 TAKE ONE TABLET BY MOUTH EVERY DAY TAKE ONE TABLET BY MOUTH EVERY DAY SOLD: 09/17/2019 [facility] 500 mg 06/12/2019 12:00:00 AM EST tablet 180 TAKE ONE TABLET BY MOUTH TWICE A DAY TAKE ONE TABLET BY MOUTH TWICE A DAY SOLD: 06/12/2019 [facility] 500 mg 06/12/2019 12:00:00 AM EST tablet 180 TAKE ONE TABLET BY MOUTH TWICE A DAY TAKE ONE TABLET BY MOUTH TWICE A DAY SOLD: 09/17/2019 [facility] 300 unit/mL (1.5 mL) 04/06/2019 12:00:00 AM EST insulin pen 7 USE 85 UNITS BEFORE BEDTIME UNDER THE SKIN USE 85 UNITS BEFORE BEDTIME UNDER THE SKIN SOLD: 05/04/2019 [facility] 300 unit/mL (1.5 mL) 04/06/2019 12:00:00 AM EST insulin pen 4 USE 85 UNITS BEFORE BEDTIME UNDER THE SKIN USE 85 UNITS BEFORE BEDTIME UNDER THE SKIN SOLD: 06/01/2019 [facility] 300 unit/mL (1.5 mL) 04/06/2019 12:00:00 AM EST insulin pen 4 USE 85 UNITS BEFORE BEDTIME UNDER THE SKIN USE 85 UNITS BEFORE BEDTIME UNDER THE SKIN SOLD: 08/09/2019 [facility] 300 unit/mL (1.5 mL) 04/06/2019 12:00:00 AM EST insulin pen 4 USE 85 UNITS BEFORE BEDTIME UNDER THE SKIN USE 85 UNITS BEFORE BEDTIME UNDER THE SKIN SOLD: 07/05/2019 [facility] 300 unit/mL (1.5 mL) 04/06/2019 12:00:00 AM EST insulin pen 4 USE 85 UNITS BEFORE BEDTIME UNDER THE SKIN USE 85 UNITS BEFORE BEDTIME UNDER THE SKIN SOLD: 06/17/2019 [facility] 300 unit/mL (1.5 mL) 04/06/2019 12:00:00 AM EST insulin pen 4 USE 85 UNITS BEFORE BEDTIME UNDER THE SKIN USE 85 UNITS BEFORE BEDTIME UNDER THE SKIN SOLD: 07/20/2019 [facility] 0.75 mg/0.5 mL 04/06/2019 12:00:00 AM EST pen injector 2 INJECT CONTENTS OF 1 PEN UNDER THE SKIN EVERY WEEK INJECT CONTENTS OF 1 PEN UNDER THE SKIN EVERY WEEK SOLD: 06/01/2019 [facility] 300 unit/mL (1.5 mL) 04/06/2019 12:00:00 AM EST insulin pen 4 USE 85 UNITS BEFORE BEDTIME UNDER THE SKIN USE 85 UNITS BEFORE BEDTIME UNDER THE SKIN SOLD: 08/20/2019 [facility] 31 gauge x 1/4" 03/30/2019 12:00:00 AM EST needle 100 USE BEFORE BED DIRECTED USE BEFORE BED DIRECTED SOLD: 06/03/2019 [facility] 50 mg 03/20/2019 12:00:00 AM EST tablet 90 TAKE ONE TABLET BY MOUTH AT BEDTIME TAKE ONE TABLET BY MOUTH AT BEDTIME SOLD: 06/22/2019 [facility] Insurance Providers Payer name Policy type / Coverage type Policy ID Covered democrat ID Covered democrat's relationship to das Policy Das Plan Information AET[employer] MEDICARE [id number] SP [facility] [id number] S [place] MED[place]-[facility] O [id number] S [id number] MEDICARE COMPLETE [id number] SP [id number] MEDICARE COMPLETE [id number] SP [id number] MEDICARE COMPLETE [id number] SP [id number] ANSI-Medicare Part B [id number] ANSI-Medicare Part B [id number] ANSI-Medicaid [id number] ANSI-Medicare Part B [id number] ANSI-Medicare Part B [id number] ANSI-Medicaid [id number] ANSI-Medicare Part B [id number] ANSI-Medicare Part B [id number] ANSI-Medicaid [id number] ANSI-Medicare Part B [id number] ANSI-Medicare Part B [id number] ANSI-Medicare Part B [id number] ANSI-Medicare Part B [id number] ANSI-Medicaid [id number] ANSI-Medicare Part B [id number] ANSI-Medicare Part B [id number] ANSI-Medicaid [id number] ANSI-Medicare Part B [id number] ANSI-Medicare Part B [id number] ANSI-Medicare Part B [id number] ANSI-Medicare Part B [id number] ANSI-Medicare Part B [id number] ANSI-Medicare Part B [id number] ANSI-Medicaid [id number] ANSI-Medicare Part B [id number] ANSI-Medicare Part B [id number] ANSI-Medicare Part B [id number] ANSI-Medicaid [id number] ANSI-Medicare Part B [id number] ANSI-Medicaid [id number] ANSI-Medicare Part B [id number] ANSI-Medicare Part B [id number] ANSI-Medicare Part B [id number] ANSI-Medicaid [id number] ANSI-Medicare Part B [id number] ANSI-Medicare Part B [id number] ANSI-Medicaid [id number] ANSI-Medicaid [id number] ANSI-Medicare Part B [id number] ANSI-Medicare Part B [id number] ANSI-Medicare Part B [id number] ANSI-Medicare Part B [id number] ANSI-Medicaid [id number] MEDICARE COMPLETE [id number] SP [id number] MEDICAID [id number] SP [id number] ANSI-Medicare Part B [id number] ANSI-Medicaid [id number] ANSI-Medicare Part B [id number] ANSI-Medicare Part B [id number] ANSI-Medicaid [id number] ANSI-Medicare Part B [id number] ANSI-Medicare Part B [id number] ANSI-Medicaid [id number] ANSI-Medicare Part B [id number] ANSI-Medicare Part B [id number] ANSI-Medicare Part B [id number] ANSI-Medicaid [id number] ANSI-Medicare Part B [id number] ANSI-Medicare Part B [id number] ANSI-Medicaid [id number] ANSI-Medicaid [id number] ANSI-Medicare Part B [id number] ANSI-Medicare Part B [id number] MEDICARE [id number] SP [id number] [facility] Medicare Commercial [id number] Self [id number] MEDICARE [id number] SP [id number] A MEDICARE C [id number] S [id number] [facility] [id number] Self [id number] MEDICARE COMPLETE [id number] SP [id number] MEDICARE COMPLETE [id number] SP [id number] MEDICARE COMPLETE [id number] SP [id number] United CR/Medicare Solu Commercial Self MEDICARE COMPLETE [id number] SP [id number] MEDICAID [id number] SP [id number] BLUE CROSS COLE PLAN [id number] SP [id number] HMO BLUE [id number] SP [id number] MEDICAID GME W [id number] S [id number] G BLUE CHOICE OPTION O [id number] S [id number] PROGRESSIVE NO FAULT O [id number] S [id number] PROGRESSIVE NO FAULT O 0 S 0 PROGRESSIVE CO NO FAULT [id number] SP [id number] SELF PAY UNAVAILABLE SP UNAVAILA BLE BLUE CROSS BLUE SHIELD-O/P [id number] 18 [id number] BLUE CROSS BLUE SHIELD-CLINIC [id number] HMO BLUE P [id number] S [id number] [employer] BCBS P [id number] S [id number] Problems, Conditions, and Diagnoses Code Display Name Description Problem Type Effective Dates Data Source(s) E11.65 [id number] Type 2 diabetes mellitus with hyperglycem ia Problem 05/29/2020 12:00:00 AM EST eCW1 ([facility]) Z79.4 [id number] care home (current) use of insulin Proble m 05/29/2020 12:00:00 AM EST eCW1 ([facility]) Surgeries/Procedures Procedure Description Date Indications Data Source(s) PNEUMOCOCCAL CONJ VACCINE 13 VALENT IM 05/23/2020 12:0 0:00 AM EST eCW1 ([facility]) Office Visit, Est Pt., Level 3 PC 09/17/2019 12:00:00 AM EDT eCW1 ([facility]) Office Visit, Est Pt., Level 2 FC 09/17/2019 12:00:00 AM EDT eCW1 ([facility]) Results ID Date Data Source C-PEPTIDE 05/29/2020 12:00:00 AM EST eCW1 ([facility]) Name Value Range Interpretation Code Description Data Anya rce(s) Supporting Document(s) 5.1 1.1-4.4 C-PEPTIDE eCW1 ([facility]) ID Date Data Source LIPID PANEL (CARDIAC RISK) 05/23/2020 12:00:00 AM EST eCW1 ( [facility]) Name Value Range Interpretation Code Description Data Anya rce(s) Supporting Document(s) Triglyceride [Mass/volume] in Serum or Plasma by calculation 252 <150 TRIGLYCERIDES LEVEL eCW1 ([facility]) Cholesterol [Moles/volume] in Serum or Plasma 165 <200 CHOLESTEROL LEVEL eCW ([facility]) Cholesterol in HDL [Moles/volume] in Serum or Plasma 39 >40 HDL CHOLESTEROL eC1 ([facility]) 4.230 <5 CHOLESTEROL RISK RATIO eCW1 ([facility]) 126 NON-HDL-C eC ([facility]) Cholesterol in LDL [Mass/volume] in Serum or Plasma by calculation 76 <100 LDL CHOLESTEROL [facility] ([facility]) ID Date Data Source TSH 05/23/2020 12:00:00 AM EST eCW1 ([facility]) Name Value Range Interpretation Code Description Data Anya rce(s) Supporting Document(s) 0.886 0.358-3.740 THYROID STIMULATING HORM ONE eCW1 ([facility]) ID Date Data Source [id number] 05/23/2020 12:00:00 AM EST eCW1 ([facility]) Name Value Range Interpretation Code Description Data Anya rce(s) Supporting Document(s) Microalbumin/Creatinine [Mass Ratio] in Urine 46.8 CREATININE, URINE eCW1 ([facility]) Albumin/Creatinine [Mass Ratio] in Urine 9.4 MALB URINE SIEMENS eCW1 ([facility]) Microalbumin/Creatinine [Ratio] in Urine 20.0 0.0-30.0 BRAULIO/CREAT RATIO eCW1 ([facility]) ID Date Data Source MAGNESIUM LEVEL 05/23/2020 12:00:00 AM EST eCW1 ([facility]) Name Value Range Interpretation Code Description Data Anya rce(s) Supporting Document(s) 1.5 1.8-2.4 MAGNESIUM LEVEL eCW1 ([facility]) ID Date Data Source VITAMIN D [id number] 05/23/2020 12:00:00 AM EST eCW1 ([facility]) Name Value Range Interpretation Code Description Data Anya rce(s) Supporting Document(s) 33.1 30.0-100.0 TOTAL 25(OH) VITAMIN D eC W1 ([facility]) ID Date Data Source [id number] 05/23/2020 12:00:00 AM EST eCW1 ([facility]) Name Value Range Interpretation Code Description Data Anya rce(s) Supporting Document(s) Hemoglobin A1c/Hemoglobin.total in Blood 11.4 HEMOGLOBIN A1c eCW1 ([facility]) ID Date Data Source Comprehensive Metabolic Profile (CMP) 05/23/2020 12:00:00 AM EST eCW1 ([facility]) Name Value Range Interpretation Code Description Data Anya rce(s) Supporting Document(s) 266 70-100 GLUCOSE, FASTING eCW1 ([facility]) 0.85 0.55-1.30 CREATININE FOR GFR eCW1 ([facility]) > 60.0 >39 GLOMERULAR FILTRATION RATE eCW 1 ([facility]) 13 7-18 BLOOD UREA NITROGEN eCW1 ([facility]) 97 98-107 CHLORIDE LEVEL eCW1 ([facility]) 4.3 3.5-5.1 POTASSIUM SERUM eCW1 ([facility]) 138 136-145 SODIUM LEVEL eCW1 ([facility]) 35 21-32 CARBON DIOXIDE LEVEL eCW1 (Count includes the [facility]) 31 12-78 ALT/SGPT eCW1 ([facility]) 22 7-37 AST/SGOT eCW1 ([facility]) 159 45-117 ALKALINE PHOSPHATASE eCW1 (Count includes the [facility]) 9.9 8.8-10.2 CALCIUM LEVEL eCW1 ([facility]) 3.6 3.2-5.2 ALBUMIN eCW1 ([facility]) 7.1 6.4-8.2 TOTAL PROTEIN eCW1 ([facility]) 1.2 0.2-1.0 BILIRUBIN,TOTAL eCW1 ([facility]) 1.0 1.2-2.2 ALBUMIN/GLOBULIN RATIO eCW1 ([facility]) ID Date Data Source CBC with Differential 05/23/2020 12:00:00 AM EST eCW1 ([facility]) Name Value Range Interpretation Code Description Data Anya rce(s) Supporting Document(s) 8.7 4.0-10.0 WHITE BLOOD COUNT eCW1 ([facility]) 5.23 4.00-5.40 RED BLOOD COUNT eCW1 ([facility]) 14.7 12.0-15.5 HEMOGLOBIN eCW1 ([facility]) 87.2 80.0-96.0 MEAN CORPUSCULAR VOLUME e CW1 ([facility]) 45.6 36.0-47.0 HEMATOCRIT eCW1 ([facility]) 200 150-450 PLATELET COUNT, AUTOMATED eCW1 ([facility]) 13.0 11.5-14.5 RED CELL DISTRIBUTION WID TH eCW1 ([facility]) 28.1 27.0-33.0 MEAN CORPUSCULAR HEMOGLOB IN eCW1 ([facility]) 32.2 32.0-36.5 MEAN CORPUSCULAR HGB CONC eCW1 ([facility]) 48.0 36.0-66.0 NEUTROPHILS % eCW1 ([facility]) 2.7 0.0-3.0 EOS % eCW1 ([facility]) 8.2 0.0-5.0 MONO % eCW1 ([facility]) 40.3 24.0-44.0 LYMPH % eCW1 ([facility]) 4.2 1.5-8.5 NEUTROPHILS # eCW1 ([facility]) 0.6 0.0-1.0 BASO % eCW1 ([facility]) 3.5 1.5-5.0 LYMPH # eCW1 ([facility]) 0.1 0.0-0.2 BASO # eCW1 ([facility]) 0.7 0.0-0.8 MONO # eCW1 ([facility]) 0.2 0.0-0.5 EOS # eCW1 ([facility]) Procedure Social History Code Duration Value Status Description Data Source(s ) Smoking 05/29/2020 12:00:00 AM EST Never Smoker completed Never S moker eCW1 ([facility]) Smoking 05/29/2020 12:00:00 AM EST Never Smoker completed Never S moker eCW1 ([facility]) Smoking 05/29/2020 12:00:00 AM EST Never Smoker completed Never S moker eCW1 ([facility]) Smoking 05/29/2020 12:00:00 AM EST Never Smoker completed Never S moker eCW1 ([facility]) Smoking 05/23/2020 12:00:00 AM EST Never Smoker completed Never S moker eCW1 ([facility]) Smoking 09/17/2019 12:00:00 AM EDT Never Smoker completed Never S moker eCW1 ([facility]) Smoking 09/17/2019 12:00:00 AM EDT Never Smoker completed Never S moker eCW1 ([facility]) Vital Signs ID Date Data Source UNK Name Value Range Interpretation Code Description Data Source(s) Diastolic blood pressure 76 mm[Hg] 76 mm[Hg] eCW1 ([facility]) Systolic blood pressure 128 mm[Hg] 128 mm[Hg] e CW1 ([facility]) Body temperature 96.7 [degF] 96.7 [degF] eCW1 ( [facility]) Respiratory rate 18 /min 18 /min eCW1 ([facility]) Heart rate 85 /min 85 /min eCW1 ([facility]) Body mass index (BMI) [Ratio] 47.99 kg/m2 47.99 kg/m2 W1 ([facility]) Body height 61 [in_i] 61 [in_i] eCW1 ([facility]) Body weight 254 [lb_av] 254 [lb_av] eCW1 ([facility]) Diastolic blood pressure 100 mm[Hg] 100 mm[Hg] eCW1 ([facility]) Systolic blood pressure 170 mm[Hg] 170 mm[Hg] e CW1 ([facility]) Body temperature 96.2 [degF] 96.2 [degF] eCW1 ( [facility]) Respiratory rate 20 /min 20 /min eCW1 ([facility]) Heart rate 87 /min 87 /min eCW1 ([facility]) Body mass index (BMI) [Ratio] 47.80 kg/m2 47.80 kg/m2 eCW1 ([facility]) Body height 61 [in_i] 61 [in_i] eCW1 ([facility]) Body weight 253 [lb_av] 253 [lb_av] eCW1 ([facility]) Diastolic blood pressure 82 mm[Hg] 82 mm[Hg] eCW1 ([facility]) Systolic blood pressure 122 mm[Hg] 122 mm[Hg] e CW1 ([facility]) Body temperature 96.9 [degF] 96.9 [degF] eCW1 ( [facility]) Respiratory rate 18 /min 18 /min eCW1 ([facility]) Heart rate 84 /min 84 /min eCW1 ([facility]) Body mass index (BMI) [Ratio] 49.05 kg/m2 49.05 kg/m2 eCW1 ([facility]) Body height 61 [in_us] 61 [in_us] eCW1 ([facility]) Body weight Measured 259.6 [lb_av] 259.6 [lb_av ] eCW1 ([facility]) Diastolic blood pressure 74 mm[Hg] 74 mm[Hg] eCW1 ([facility]) Systolic blood pressure 110 mm[Hg] 110 mm[Hg] e CW1 ([facility]) Body temperature 95.9 [degF] 95.9 [degF] eCW1 ( [facility]) Respiratory rate 18 /min 18 /min eCW1 ([facility]) Heart rate 91 /min 91 /min eCW1 ([facility]) Body mass index (BMI) [Ratio] 47.80 kg/m2 47.80 kg/m2 W1 ([facility]) Body height 61 [in_us] 61 [in_us] eCW1 ([facility]) Body weight Measured 253 [lb_av] 253 [lb_av] eC W1 ([facility]) Body mass index (BMI) [Ratio] 47.3 kg/m2 47.3 k g/m2 MEDENT ([facility], [facility]) Body height 60 [in_i] 60 [in_i] MEDENT ([facility]) 5'0" Body weight 242.00 [lb_av] 242.00 [lb_av] MEDEN T ([facility], [facility]) Body temperature 98.2 [degF] 98.2 [degF] MEDENT ([facility]) Oxygen saturation in Arterial blood by Pulse oximetry 97 % 97 % MEDENT ([facility], [facility]) Respiratory rate 16 /min 16 /min MEDENT ( [facility], [facility]) Heart rate 88 /min 88 /min MEDENT ([facility], [facility]) Diastolic blood pressure 84 mm[Hg] 84 mm[Hg] MEDENT ([facility], [facility]) Systolic blood pressure 132 mm[Hg] 132 mm[Hg] M EDENT ([facility], [facility]) Diastolic blood pressure 68 mm[Hg] 68 mm[Hg] eCW1 ([facility]) Systolic blood pressure 142 mm[Hg] 142 mm[Hg] e CW1 ([facility]) Body temperature 95.7 [degF] 95.7 [degF] eCW1 ( [facility]) Respiratory rate 18 /min 18 /min eCW1 ([facility]) Heart rate 94 /min 94 /min eCW1 ([facility]) Body mass index (BMI) [Ratio] 48.55 kg/m2 48.55 kg/m2 eCW1 ([facility]) Body height 61 [in_us] 61 [in_us] eCW1 ([facility]) Body weight Measured 257 [lb_av] 257 [lb_av] eC W1 ([facility]) Patient Treatment Plan of Care Planned Activity Planned Date Details Description Data Source (s) NovoLIN R FlexPen 100 UNIT/ML 05/29/2020 12:00:00 AM EST eCW1 ([facility]) NovoLIN R FlexPen 100 UNIT/ML 05/29/2020 12:00:00 AM EST eCW1 ([facility]) NovoLIN R FlexPen 100 UNIT/ML 05/29/2020 12:00:00 AM EST eCW1 ([facility]) NovoLIN R FlexPen 100 UNIT/ML 05/29/2020 12:00:00 AM EST eCW1 ([facility]) benzonatate 100 MG Oral Capsule 07/20/2019 12:00:00 AM EDT eCW1 ([facility])
[2020-06-10] MEDS ORDERED: MORPHINE 4 MG/ML 1ML VIAL/SYRINGE (J2270) IV PRN (05:15)
[2020-06-10] MEDS ORDERED: diazePAM 10MG/2ML SYRINGE (J3360 PER 5MG) IV ONE (05:15)
[2020-06-10] MEDS ORDERED: CHLO125TA PO (05:36)
[2020-06-10] MEDS ORDERED: ATOR40TA75 PO (05:36)
[2020-06-10] MEDS ORDERED: VALI2TAB PO (05:56)
--- OUTSIDE RECORDS SUMMARY | 2020-06-10 06:02 | CCD ---
Author Author [facility] Organization [facility] Address Unknown Phone Unavailable Care Team Providers Care Applicator Sprayer Name Role Phone NRI, 318 Unavailable Unavailable [...] is protected by Article 27-F of the [facility] Public Health law. If you continue you may have access to information: Regarding HIV / AIDS; Provided by facilities licensed or operated by the [facility] Office of Mental Health; or Provided by the [facility] Office for People With Developmental Disabilities. If such information is present, then the following [facility] mandated warning applies: This information has been [...] law may result in a fine or group home sentence or both. A general authorization for the release of medical or other information is NOT sufficient authorization for further disc losure. Family History Family Member Name Family Member Gender Family Member Status Date o f Status Description Data Source(s) Unknown Male Problem MEDENT ([facility] ) () Unknown Unknown Problem MEDENT ([facility]) Unknown Unknown Problem MEDENT ([facility]) Unknown Unknown Problem MEDENT ([facility]) Encounters Encounter Providers Location Date Indications Data Source(s ) [place] [address] [facility] [address] 06/07/2020 12:00:00 AM EST eCW1 ([facility]) [place] [address] [facility] [address] 06/01/2020 12:00:00 AM EST eCW1 ([facility]) Office Visit, Est Pt., Level [address] [place] [address] 05/29/2020 12:00:00 AM EST eCW1 ([facility]) [place] [address] [facility] [address] 05/24/2020 12:00:00 AM EST eCW1 ([facility]) [place] [address] [facility] [address] 05/23/2020 12:00:00 AM EST eCW1 ([facility]) [place] [address] [facility] [address] 05/12/2020 12:00:00 AM EST eCW1 ([facility]) [place] [address] [facility] [address] 02/10/2020 12:00:00 AM EDT eCW1 ([facility]) [facility] [place] [address] [facility] [place] [address] 09/17/2019 12:00:00 AM EDT eCW1 ([facility]) [facility] [place] [address] [place] [address], [place] [address] 09/17/2019 12:00:00 AM EDT eCW1 ([facility]) [facility] [place] [address] [place] [address], [place] [address] 09/08/2019 12:00:00 AM EDT eCW1 ([facility]) [facility] [place] [address] [place] [address], [place] [address] 09/03/2019 12:00:00 AM EDT eCW1 ([facility]) [facility] [place] [address] [place] [address], [place] [address] 08/17/2019 12:00:00 AM EDT eCW1 ([facility]) [facility] [place] [address] [place] [address] [place] [address] 07/20/2019 12:00:00 AM EDT eCW1 ([facility]) [facility] [place] [address] [place] [address], [place] [address] 07/20/2019 12:00:00 AM EDT eCW1 ([facility]) Outpatient Referrer: 318 NRI 07/18/2019 09:55:00 AM EDT [facility] [place] [address] [facility] [address] 07/14/2019 12:00:00 AM EDT eCW1 ([facility]) Outpatient Referrer: 318 [place]RI 06/24/2019 06:21:00 PM EST [facility] Outpatient Attender: JESS Astorga 06/16/2019 12:15:00 PM EST MEDENT ([facility]) [facility] [place] [address] [facility] [address] 06/16/2019 12:00:00 AM EST eCW1 ([facility]) [facility] [place] [address] [facility] [address] 06/15/2019 12:00:00 AM EST eCW1 ([facility]) [facility] [place] [address] [facility] [address] 05/25/2019 12:00:00 AM EST eCW1 ([facility]) Immunizations Vaccine Date Status Description Data Source(s) Pneumococcal conjugate PCV 13 05/23/2020 11:52:00 AM EST completed eCW1 ([facility]) Pneumococcal conjugate PCV 13 05/23/2020 11:52:00 AM EST completed eCW1 ([facility]) Pneumococcal conjugate PCV 13 05/23/2020 11:52:00 AM EST completed eCW1 ([facility]) Pneumococcal conjugate PCV 13 05/23/2020 11:52:00 AM EST completed eCW1 ([facility]) Pneumococcal conjugate PCV 13 05/23/2020 11:52:00 AM EST completed eCW1 ([facility]) INFLUENZA VACCINE QUADRIVALENT 2019- (65 YR [...] active NovoLIN R FlexPen 100 UNIT/ML eCW1 ([facility]) NovoLIN R FlexPen 100 UNIT/ML NovoLIN R FlexPen 100 UNIT/ML 05/29/2020 12:00:00 AM EST active NovoLIN R FlexPen 100 UNIT/ML eCW1 ([facility]) NovoLIN R FlexPen 100 UNIT/ML NovoLIN R FlexPen 100 UNIT/ML 05/29/2020 12:00:00 AM EST active NovoLIN R FlexPen 100 UNIT/ML eCW1 ([facility]) NovoLIN R FlexPen 100 UNIT/ML NovoLIN R FlexPen 100 UNIT/ML 05/29/2020 12:00:00 AM EST active NovoLIN R FlexPen 100 UNIT/ML eCW1 ([facility]) 300 unit/mL (1.5 mL) 03/14/2020 12:00:00 [...] EDT active Benzonat ate 100 MG eCW1 ([facility]) benzonatate 100 MG Oral Capsule Benzonatate 100 MG Benzonata te 100 MG 07/20/2019 12:00:00 AM EDT active Benzonat ate 100 MG eCW1 ([facility]) benzonatate 100 MG Oral Capsule Benzonatate 100 MG Benzonata te 100 MG 07/20/2019 12:00:00 AM EDT active 1-2 caps ule as needed eCW1 ([facility]) benzonatate 100 MG Oral Capsule Benzonatate 100 MG Benzonata te 100 MG 07/20/2019 12:00:00 AM EDT active 1-2 caps ule as needed eCW1 ([facility]) benzonatate 100 MG Oral Capsule Benzonatate 100 MG Benzonata te 100 MG 07/20/2019 12:00:00 AM EDT active Benzonat ate 100 MG eCW1 ([facility]) benzonatate 100 MG Oral Capsule Benzonatate 100 MG Benzonata te 100 MG 07/20/2019 12:00:00 AM EDT active Benzonat ate 100 MG eCW1 ([facility]) benzonatate 100 MG Oral Capsule BENZONATATE [...] EDT active Benzonat ate 100 MG eCW1 ([facility]) benzonatate 100 MG Oral Capsule Benzonatate 100 MG Benzonata te 100 MG 07/20/2019 12:00:00 AM EDT active Benzonat ate 100 MG eCW1 ([facility]) benzonatate 100 MG Oral Capsule Benzonatate 100 MG Benzonata te 100 MG 07/20/2019 12:00:00 AM EDT active Benzonat ate 100 MG eCW1 ([facility]) 40 mg 06/17/2019 12:00:00 AM EST tablet 90 TAKE ONE TABLET BY MOUTH EVERY DAY TAKE ONE TABLET BY MOUTH EVERY DAY SOLD: 06/22/2019 [facility] 40 mg 06/17/2019 12:00:00 AM EST tablet 90 TAKE ONE TABLET BY MOUTH EVERY DAY TAKE ONE TABLET BY MOUTH EVERY DAY SOLD: 09/17/2019 [facility] 90 mcg/actuation 06/16/2019 12:00:00 AM EST HFA aerosol inha ler 8 INHALE TWO PUFFS BY MOUTH EVERY 4 TO 6 HOURS NEEDED FOR COUGH AND WHEEZING INHALE TWO PUFFS BY MOUTH EVERY 4 TO 6 HOURS NEEDED FOR COUGH AND WHEEZING SOLD: 06/16/2019 [facility] 10 mg 06/16/2019 12:00:00 AM EST tablet 12 TAKE ONE TABLET BY MOUTH THREE TIMES A DAY FOR 4 DAYS TAKE ONE TABLET BY MOUTH THREE TIMES A DAY FOR 4 DAYS SOLD: 06/16/2019 [facility] Doxycycline Monohydrate 100 MG Oral Capsule Doxycycline [place] hydrate 06/16/2019 12:00:00 AM EST ORAL active M EDENT ([facility]) 200 ACTUAT Albuterol 0.09 MG/ACTUAT Metered Dose Inhaler [Pr oAir] Proair HFA 06/16/2019 12:00:00 AM EST ORAL active MEDENT ([facility]) Prednisone 10 MG Oral Tablet Prednisone 06/16/2019 [...] BEFORE BEDTIME UNDER THE SKIN SOLD: 08/09/2019 [facility] 300 unit/mL (1.5 mL) 04/06/2019 12:00:00 [...] type / Coverage type Policy ID Covered alliance party ID Covered alliance party's relationship to das Policy Das Plan Information AETNA MEDICARE [id number] SP [facility] [place] AETNA MEDICARE O [id number] S [place]BSM [place] MEDICARE COMPLETE-[facility] O [id number] S [id number] MEDICARE COMPLETE [id number] SP [id number] MEDICARE COMPLETE [id number] SP [id number] MEDICARE COMPLETE [id number] SP [id number] ANSI-Medicare Part B [id number] ANSI-Medicare Part B [id number] ANSI-Medicaid [id number] ANSI-Medicare Part B [id number] ANSI-Medicare Part B [id number] ANSI-Medicaid [id number] ANSI-Medicare Part B [id number] ANSI-Medicare Part B [id number] ANSI-Medicaid [id number] ANSI-Medicare Part B [id number] ANSI-Medicare Part B [id number] ANSI-Medicare Part B [id number] ANSI-Medicare Part B [id number] ANSI-Medicaid [id number] ANSI-Medicare Part B [id number] ANSI-Medicare Part B [id number] ANSI-Medicaid [id number] ANSI-Medicare Part B [id number] ANSI-Medicare Part B [id number] ANSI-Medicare Part B [id number] ANSI-Medicare Part B [id number] ANSI-Medicare Part B [id number] ANSI-Medicare Part B [id number] ANSI-Medicaid [id number] ANSI-Medicare Part B [id number] ANSI-Medicare Part B [id number] ANSI-Medicare Part B [id number] ANSI-Medicaid [id number] ANSI-Medicare Part B [id number] ANSI-Medicaid [id number] ANSI-Medicare Part B [id number] ANSI-Medicare Part B [id number] ANSI-Medicare Part B [id number] ANSI-Medicaid [id number] ANSI-Medicare Part B [id number] ANSI-Medicare Part B [id number] ANSI-Medicaid [id number] ANSI-Medicaid [id number] ANSI-Medicare Part B [id number] ANSI-Medicare Part B [id number] ANSI-Medicare Part B [id number] ANSI-Medicare Part B [id number] ANSI-Medicaid [id number] MEDICARE COMPLETE [id number] SP [id number] MEDICAID [id number] SP [id number] ANSI-Medicare Part B [id number] ANSI-Medicaid [id number] ANSI-Medicare Part B [id number] ANSI-Medicare Part B [id number] ANSI-Medicaid [id number] ANSI-Medicare Part B [id number] ANSI-Medicare Part B [id number] ANSI-Medicaid [id number] ANSI-Medicare Part B [id number] ANSI-Medicare Part B [id number] ANSI-Medicare Part B [id number] ANSI-Medicaid [id number] ANSI-Medicare Part B [id number] ANSI-Medicare Part B [id number] ANSI-Medicaid [id number] ANSI-Medicaid [id number] ANSI-Medicare Part B [id number] ANSI-Medicare Part B [id number] MEDICARE [id number] SP [id number] A [facility] Medicare Commercial [id number] Self [id number] MEDICARE [id number] SP [id number] A MEDICARE C [id number] S [id number] [facility] [id number] Self [id number] MEDICARE COMPLETE [id number] SP [id number] MEDICARE COMPLETE [id number] SP [id number] MEDICARE COMPLETE [id number] SP [id number] [place] CR/Medicare Solu Commercial Self MEDICARE COMPLETE [id number] SP [id number] MEDICAID [id number] SP [id number] BLUE CROSS COLE PLAN [id number] SP [id number] HMO BLUE [id number] SP [id number] MED[place]ID GME W [id number] S [id number] G BLUE CHOICE OPTION O [id number] S [id number] PROGRESSIVE NO FAULT O [id number] S [id number] PROGRESSIVE NO FAULT O 0 S 0 PROGRESSIVE CO NO FAULT [id number] SP [id number] SELF PAY UNAVAILABLE SP UNAVAILA BLE BLUE CROSS BLUE SHIELD-O/P [id number] 18 [id number] BLUE CROSS BLUE SHIELD-CLINIC [id number] HMO BLUE P [id number] S [id number] [employer] P [id number] S [id number] Problems, Conditions, and Diagnoses Code Display Name Description Problem Type Effective Dates Data Source(s) E11.65 [id number] Type 2 diabetes mellitus with hyperglycem ia Problem 05/29/2020 12:00:00 AM EST eCW1 ([facility]) Z79.4 [id number] intermediate (current) use of insulin Proble m 05/29/2020 12:00:00 AM EST eCW1 ([facility]) Surgeries/Procedures Procedure Description Date Indications Data Source(s) PNEUMOCOCCAL CONJ VACCINE 13 VALENT IM 05/23/2020 12:0 0:00 AM EST eCW1 ([facility]) Office Visit, Est Pt., Level 3 PC 09/17/2019 12:00:00 AM EDT eCW1 ([facility]) Office Visit, Est Pt., Level 2 FC 09/17/2019 12:00:00 AM EDT eCW1 ([facility]) Results ID Date Data Source C-PEPTIDE 05/29/2020 12:00:00 AM EST eCW1 ([facility]) Name Value Range Interpretation Code Description Data Anya rce(s) Supporting Document(s) 5.1 1.1-4.4 C-PEPTIDE eCW1 ([facility]) ID Date Data Source LIPID PANEL (CARDIAC RISK) 05/23/2020 12:00:00 AM EST eCW1 ( [facility]) Name Value Range Interpretation Code Description Data Anya rce(s) Supporting Document(s) Triglyceride [Mass/volume] in Serum or Plasma by calculation 252 <150 TRIGLYCERIDES LEVEL eCW1 ([facility]) Cholesterol [Moles/volume] in Serum or Plasma 165 <200 CHOLESTEROL LEVEL eCW ([facility]) Cholesterol in HDL [Moles/volume] in Serum or Plasma 39 >40 HDL CHOLESTEROL eC1 ([facility]) 4.230 <5 CHOLESTEROL RISK RATIO eCW1 ([facility]) 126 NON-HDL-C eC ([facility]) Cholesterol in LDL [Mass/volume] in Serum or Plasma by calculation 76 <100 LDL CHOLESTEROL [facility] ([facility]) ID Date Data Source TSH 05/23/2020 12:00:00 AM EST eCW1 ([facility]) Name Value Range Interpretation Code Description Data Anya rce(s) Supporting Document(s) 0.886 0.358-3.740 THYROID STIMULATING HORM ONE eCW1 ([facility]) ID Date Data Source [id number] 05/23/2020 12:00:00 AM EST eCW1 ([facility]) Name Value Range Interpretation Code Description Data Anya rce(s) Supporting Document(s) Microalbumin/Creatinine [Mass Ratio] in Urine 46.8 CREATININE, URINE eCW1 ([facility]) Albumin/Creatinine [Mass Ratio] in Urine 9.4 MALB URINE SIEMENS eCW1 ([facility]) Microalbumin/Creatinine [Ratio] in Urine 20.0 0.0-30.0 BRAULIO/CREAT RATIO eCW1 ([facility]) ID Date Data Source MAGNESIUM LEVEL 05/23/2020 12:00:00 AM EST eCW1 ([facility]) Name Value Range Interpretation Code Description Data Anya rce(s) Supporting Document(s) 1.5 1.8-2.4 MAGNESIUM LEVEL eCW1 ([facility]) ID Date Data Source VITAMIN D 25-HYDROXY 05/23/2020 12:00:00 AM EST eCW1 ([facility]) Name Value Range Interpretation Code Description Data Anya rce(s) Supporting Document(s) 33.1 30.0-100.0 TOTAL 25(OH) VITAMIN D eC W1 ([facility]) ID Date Data Source [id number] 05/23/2020 12:00:00 AM EST eCW1 ([facility]) Name Value Range Interpretation Code Description Data Anya rce(s) Supporting Document(s) Hemoglobin A1c/Hemoglobin.total in Blood 11.4 HEMOGLOBIN A1c eCW1 ([facility]) ID Date Data Source Comprehensive Metabolic Profile (CMP) 05/23/2020 12:00:00 AM EST eCW1 ([facility]) Name Value Range Interpretation Code Description Data Anya rce(s) Supporting Document(s) 266 70-100 GLUCOSE, FASTING eCW1 ([facility]) 0.85 0.55-1.30 CREATININE FOR GFR eCW1 ([facility]) > 60.0 >39 GLOMERULAR FILTRATION RATE eCW 1 ([facility]) 13 7-18 BLOOD UREA NITROGEN eCW1 ([facility]) 97 98-107 CHLORIDE LEVEL eCW1 ([facility]) 4.3 3.5-5.1 POTASSIUM SERUM eCW1 ([facility]) 138 136-145 SODIUM LEVEL eCW1 ([facility]) 35 21-32 CARBON DIOXIDE LEVEL eCW1 ([facility]) 31 12-78 ALT/SGPT eCW1 ([facility]) 22 7-37 AST/SGOT eCW1 ([facility]) 159 45-117 ALKALINE PHOSPHATASE eCW1 ([facility]) 9.9 8.8-10.2 CALCIUM LEVEL eCW1 ([facility]) 3.6 3.2-5.2 ALBUMIN eCW1 ([facility]) 7.1 6.4-8.2 TOTAL PROTEIN eCW1 ([facility]) 1.2 0.2-1.0 BILIRUBIN,TOTAL eCW1 ([facility]) 1.0 1.2-2.2 ALBUMIN/GLOBULIN RATIO eCW1 ([facility]) ID Date Data Source CBC with Differential 05/23/2020 12:00:00 AM EST eCW1 ([facility]) Name Value Range Interpretation Code Description Data Anya rce(s) Supporting Document(s) 8.7 4.0-10.0 WHITE BLOOD COUNT eCW1 ([facility]) 5.23 4.00-5.40 RED BLOOD COUNT eCW1 ([facility]) 14.7 12.0-15.5 HEMOGLOBIN eCW1 ([facility]) 87.2 80.0-96.0 MEAN CORPUSCULAR VOLUME e CW1 ([facility]) 45.6 36.0-47.0 HEMATOCRIT eCW1 ([facility]) 200 150-450 PLATELET COUNT, AUTOMATED eCW1 ([facility]) 13.0 11.5-14.5 RED CELL DISTRIBUTION WID TH eCW1 ([facility]) 28.1 27.0-33.0 MEAN CORPUSCULAR HEMOGLOB IN eCW1 ([facility]) 32.2 32.0-36.5 MEAN CORPUSCULAR HGB CONC eCW1 ([facility]) 48.0 36.0-66.0 NEUTROPHILS % eCW1 ([facility]) 2.7 0.0-3.0 EOS % eCW1 ([facility]) 8.2 0.0-5.0 MONO % eCW1 ([facility]) 40.3 24.0-44.0 LYMPH % eCW1 ([facility]) 4.2 1.5-8.5 NEUTROPHILS # eCW1 ([facility]) 0.6 0.0-1.0 BASO % eCW1 ([facility]) 3.5 1.5-5.0 LYMPH # eCW1 ([facility]) 0.1 0.0-0.2 BASO # eCW1 ([facility]) 0.7 0.0-0.8 MONO # eCW1 ([facility]) 0.2 0.0-0.5 EOS # eCW1 ([facility]) Procedure Social History Code Duration Value Status Description Data Source(s ) Smoking 05/29/2020 12:00:00 AM EST Never Smoker completed Never S moker eCW1 ([facility]) Smoking 05/29/2020 12:00:00 AM EST Never Smoker completed Never S moker eCW1 ([facility]) Smoking 05/29/2020 12:00:00 AM EST Never Smoker completed Never S moker eCW1 ([facility]) Smoking 05/29/2020 12:00:00 AM EST Never Smoker completed Never S moker eCW1 ([facility]) Smoking 05/23/2020 12:00:00 AM EST Never Smoker completed Never S moker eCW1 ([facility]) Smoking 09/17/2019 12:00:00 AM EDT Never Smoker completed Never S moker eCW1 ([facility]) Smoking 09/17/2019 12:00:00 AM EDT Never Smoker completed Never S moker eCW1 ([facility]) Vital Signs ID Date Data Source UNK Name Value Range Interpretation Code Description Data Source(s) Diastolic blood pressure 76 mm[Hg] 76 mm[Hg] eCW1 ([facility]) Systolic blood pressure 128 mm[Hg] 128 mm[Hg] e CW1 ([facility]) Body temperature 96.7 [degF] 96.7 [degF] eCW1 ( [facility]) Respiratory rate 18 /min 18 /min eCW1 ([facility]) Heart rate 85 /min 85 /min eCW1 ([facility]) Body mass index (BMI) [Ratio] 47.99 kg/m2 47.99 kg/m2 W1 ([facility]) Body height 61 [in_i] 61 [in_i] eCW1 ([facility]) Body weight 254 [lb_av] 254 [lb_av] eCW1 ([facility]) Diastolic blood pressure 100 mm[Hg] 100 mm[Hg] eCW1 ([facility]) Systolic blood pressure 170 mm[Hg] 170 mm[Hg] e CW1 ([facility]) Body temperature 96.2 [degF] 96.2 [degF] eCW1 ( [facility]) Respiratory rate 20 /min 20 /min eCW1 ([facility]) Heart rate 87 /min 87 /min eCW1 ([facility]) Body mass index (BMI) [Ratio] 47.80 kg/m2 47.80 kg/m2 eCW1 ([facility]) Body height 61 [in_i] 61 [in_i] eCW1 ([facility]) Body weight 253 [lb_av] 253 [lb_av] eCW1 ([facility]) Diastolic blood pressure 82 mm[Hg] 82 mm[Hg] eCW1 ([facility]) Systolic blood pressure 122 mm[Hg] 122 mm[Hg] e CW1 ([facility]) Body temperature 96.9 [degF] 96.9 [degF] eCW1 ( [facility]) Respiratory rate 18 /min 18 /min eCW1 ([facility]) Heart rate 84 /min 84 /min eCW1 ([facility]) Body mass index (BMI) [Ratio] 49.05 kg/m2 49.05 kg/m2 eCW1 ([facility]) Body height 61 [in_us] 61 [in_us] eCW1 ([facility]) Body weight Measured 259.6 [lb_av] 259.6 [lb_av ] eCW1 ([facility]) Diastolic blood pressure 74 mm[Hg] 74 mm[Hg] eCW1 ([facility]) Systolic blood pressure 110 mm[Hg] 110 mm[Hg] e CW1 ([facility]) Body temperature 95.9 [degF] 95.9 [degF] eCW1 ( [facility]) Respiratory rate 18 /min 18 /min eCW1 ([facility]) Heart rate 91 /min 91 /min eCW1 ([facility]) Body mass index (BMI) [Ratio] 47.80 kg/m2 47.80 kg/m2 W1 ([facility]) Body height 61 [in_us] 61 [in_us] eCW1 ([facility]) Body weight Measured 253 [lb_av] 253 [lb_av] eC W1 ([facility]) Body mass index (BMI) [Ratio] 47.3 kg/m2 47.3 k g/m2 MEDENT ([facility], [facility]) Body height 60 [in_i] 60 [in_i] MEDENT ([facility]) 5'0" Body weight 242.00 [lb_av] 242.00 [lb_av] MEDEN T ([facility], [facility]) Body temperature 98.2 [degF] 98.2 [degF] MEDENT ([facility]) Oxygen saturation in Arterial blood by Pulse oximetry 97 % 97 % MEDENT ([facility], [facility]) Respiratory rate 16 /min 16 /min MEDENT ( [facility], [facility]) Heart rate 88 /min 88 /min MEDENT ([facility], [facility]) Diastolic blood pressure 84 mm[Hg] 84 mm[Hg] MEDENT ([facility], [facility]) Systolic blood pressure 132 mm[Hg] 132 mm[Hg] M EDENT ([facility], [facility]) Diastolic blood pressure 68 mm[Hg] 68 mm[Hg] eCW1 ([facility]) Systolic blood pressure 142 mm[Hg] 142 mm[Hg] e CW1 ([facility]) Body temperature 95.7 [degF] 95.7 [degF] eCW1 ( [facility]) Respiratory rate 18 /min 18 /min eCW1 ([facility]) Heart rate 94 /min 94 /min eCW1 ([facility]) Body mass index (BMI) [Ratio] 48.55 kg/m2 48.55 kg/m2 eCW1 ([facility]) Body height 61 [in_us] 61 [in_us] eCW1 ([facility]) Body weight Measured 257 [lb_av] 257 [lb_av] eC W1 ([facility]) Patient Treatment Plan of Care Planned Activity Planned Date Details Description Data Source (s) NovoLIN R FlexPen 100 UNIT/ML 05/29/2020 12:00:00 AM EST eCW1 ([facility]) NovoLIN R FlexPen 100 UNIT/ML 05/29/2020 12:00:00 AM EST eCW1 ([facility]) NovoLIN R FlexPen 100 UNIT/ML 05/29/2020 12:00:00 AM EST eCW1 ([facility]) NovoLIN R FlexPen 100 UNIT/ML 05/29/2020 12:00:00 AM EST eCW1 ([facility]) benzonatate 100 MG Oral Capsule 07/20/2019 12:00:00 AM EDT eCW1 ([facility])
[2020-06-10] MEDS ORDERED: LIDO5DIS41 TD (06:27)
[2020-06-10 06:30] VITALS: BP 148/80
[2020-06-10] MEDS ORDERED: ACETAMINOPHEN 500 MG TAB PO ONE (06:30)
[2020-06-10] MEDS ORDERED: LIDOCAINE 5% (LIDODERM) PATCH TD ONE (06:30)
[2020-06-10] MEDS ORDERED: **NOTE PATIENT COMMENT** MISC XX ONE (18:30)
== END 2020-06-10 06:52 | disposition home or self-care (01) ==
LOC: M ED 04:53
DX: M54.5 Low back pain (principal); E03.9 Hypothyroidism, unspecified; E11.9 Type 2 diabetes mellitus without complications; I10 Essential (primary) hypertension; F41.9 Anxiety disorder, unspecified; F32.9 Major depressive disorder, single episode, unspecified; Z79.899 Other long term (current) drug therapy; Z79.4 Long term (current) use of insulin
CPT/HCPCS: 96374; 99284; J2270; J3360

== ENCOUNTER → 2020-06-16 | Outpatient (CLI) | payer MEDICARE ==
[~2020-06-16] MED LIST changes: +ATOR40TA75 PO; +CHLO125TA PO; +LIDO5DIS41 TD; +VALI2TAB PO
--- NOTE | 2020-06-16 14:14 | REP ---
INDICATION: DIAG SARIKA MAMMO/LEFT BREAST PAIN/N64.4; N64.4 LEFT BREAST PAIN. COMPARISON: Mammography comparison mammography is from 22 February 2016 and September 02, 2017. TECHNIQUE: Bilateral CC and MLO) view(s) were taken. FINDINGS: Breast parenchyma is predominantly fat replaced. There is a needle biopsy marker clip at approximately 12 o'clock position in the middle 3rd of the left breast. There is a 9 mm nodule in the 12 o'clock position of the anterior 3rd retroareolar region left breast. This appears to be unchanged from 2016 but is a little more prominent than it was in 2018. No other notable mammographic abnormality is seen on either side. No worrisome skin change. No microcalcification is observed. The Volpara volumetric breast density pattern is a. Targeted left breast sonography. Left breast is scanned through the 6 7 o'clock region in the area of patient's pain and at 12 o'clock retroareolar. Slightly heterogeneous background echotexture is seen. No abnormality is noted in the inferior aspect of the left breast where the patient feels discomfort. At 12 o'clock however, there is a 1.1 x 0.9 x 0.8 cm retroareolar cyst with a few internal echoes. This is felt to account for the mammographic opacity. It has a benign appearance.. IMPRESSION: BIRADS/ACR category 2 benign mammographic and left breast sonographic findings. Simple retroareolar cyst on the left. No mammographic abnormality.. This patient's Tyrer-Cuzick lifetime breast cancer risk assessment score is 9.1%. This mammogram was interpreted with the aid of an FDA-approved computer-aided detection system. The patient states she had a clinical breast exam in over a year ago. The patient letter being requested is M 2. RECOMMENDATION: Repeat screening mammography recommended 1 year (for women over 40). <Electronically signed by Cheng Hawkins > 06/16/20 0637
== END ==
LOC: M WHC 11:02
PROVIDERS: ATTEND Family Medicine
DX: N64.4 Mastodynia (principal)
CPT/HCPCS: 76642; 77066; G0279

== ENCOUNTER → 2020-11-20 | Outpatient (CLI) | payer MEDICARE, MEDICAID ==
[~2020-11-20] MED LIST changes: +OMEP40CA4 PO; -OMEP40CA97 PO; -PEG1POW PO; +POLY17PO18 PO
--- NOTE | 2020-11-20 12:08 | REP ---
INDICATION: PAIN IN LEFT HIP. COMPARISON: None. TECHNIQUE: AP and frogleg views of the left hip are provided. FINDINGS: The left femoral head is smooth and rounded. There is mild superior acetabular spurring consistent with osteoarthritis. Periarticular soft tissues are unremarkable. There is sclerosis and narrowing of the symphysis pubis. The left hemipelvis is otherwise intact. 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 No acute bony abnormality. <Electronically signed by Cheng Hawkins > 11/20/20 [id number]
--- NOTE | 2020-11-20 12:13 | REP ---
INDICATION: CERVICALGIA. COMPARISON: None. TECHNIQUE: Nine views of the cervical spine are provided. FINDINGS: Lateral views done in flexion extension and neutral position show limitation of range of motion in the flexion extension direction. There is straightening. Cervical vertebral body heights are preserved. Discogenic spurring is seen anteriorly at C4-5, C5-6, and C6-7. Fairly large anterior osteophytes are formed at C5-6. No subluxation or instability is seen. AP view and open-mouth odontoid views show osteoarthritic facet hypertrophy in the mid and upper cervical spine bilaterally. The mandible is edentulous. Facet hypertrophy is most pronounced on the right at C4-5. Oblique images show no evidence of CS of a significant neural foraminal narrowing. There is some uncovertebral spurring bilaterally at C5-6. IMPRESSION: Degenerative spondylosis changes as noted above. No acute bony abnormality. <Electronically signed by Cheng Hawkins > 11/20/20 [id number]
--- NOTE | 2020-11-20 12:39 | REP ---
INDICATION: LUMBAR PAIN. COMPARISON: None. TECHNIQUE: Five views of the lumbar spine are provided. FINDINGS: Lumbar vertebral body heights are preserved alignment is normal. There is no evidence of spondylolysis or spondylolisthesis. There is diffuse degenerative disc disease at each level in the lumbar spine, least pronounced at L4-5. Anterior osteophyte formation is seen at the other levels. There is posterior osteophytic ridging at L3-4 and L2-3. Oblique and AP views demonstrate osteoarthritic facet hypertrophy and sclerosis bilaterally at L4-5, L5-S1, and to a lesser extent, at L3-4. Pedicles and posterior elements are intact. Psoas margins are symmetric. Sacrum and SI joints are unremarkable. IMPRESSION: Degenerative spondylosis changes. No acute bony abnormality . <Electronically signed by Cheng Hawkins > 11/20/20 [id number]
== END ==
LOC: M ADAMS 11:06
PROVIDERS: ATTEND Physician Assistant
DX: M16.12 Unilateral primary osteoarthritis, left hip (principal); M25.552 Pain in left hip; M54.5 Low back pain; M54.2 Cervicalgia

== ENCOUNTER → 2020-11-20 | Outpatient (REF) | payer OTHER ==
[2020-11-20 13:22] LABS: ALBUMIN 3.3 GM/DL (3.2-5.2); ALT/SGPT 25 U/L (12-78); BLOOD UREA NITROGEN 13 MG/DL (7-18); CALCIUM LEVEL 9.1 MG/DL (8.8-10.2); CARBON DIOXIDE LEVEL 34 MEQ/L (21-32); CHLORIDE LEVEL 99 MEQ/L (98-107); CREATININE FOR GFR 0.81 MG/DL (0.55-1.30); GLOMERULAR FILTRATION RATE > 60.0 (>39); GLUCOSE, FASTING 135 MG/DL (70-100); SODIUM LEVEL 138 MEQ/L (136-145); TOTAL PROTEIN 6.6 GM/DL (6.4-8.2)
[2020-11-20 13:55] LABS: HEMOGLOBIN A1c 8.5 %
== END ==
LOC: M SFHCADAM 11:04
PROVIDERS: ATTEND Physician Assistant
DX: E11.65 Type 2 diabetes mellitus with hyperglycemia (principal); I10 Essential (primary) hypertension

== ENCOUNTER 2021-02-07 13:35 | Emergency (ER) | payer MEDICARE, OTHER ==
[~2021-02-07] VITALS: Ht 154.9 cm; Wt 113.0 kg
[2021-02-07] MEDS ORDERED: INSU100I12 (13:56)
[2021-02-07] MEDS ORDERED: TRUL0.5I (13:56)
--- OUTSIDE RECORDS SUMMARY | 2021-02-07 13:57 | CCD ---
Author Author [facility] Organization [facility] Address Unknown Phone Unavailable Care Team Providers Care Classification Analyst Name Role Phone Sary Guzman Unavailable PROBLEMS Type Condition ICD9-CM Code [id number] Code Onset Dates Condition S tatus W/U Status Risk SNOMED Code Notes Problem Dyspepsia K30 Active confirmed 370129430 Problem Diverticulosis of large intestine without hemorrhage K57.30 Active confirmed 116812305 Problem Morbid (severe) obesity due to excess calories E66 .01 Active confirmed 740981510 Problem Hypomagnesemia E83.42 Active confirmed 51096 5004 Problem Obstructive sleep apnea (adult) (pediatric) G47.33 Active confirmed 73524752 Problem Essential (primary) hypertension I10 Active conf irmed 02220667 Problem Vitamin D deficiency, unspecified E55.9 Active con firmed 57116094 Problem Postconcussional syndrome F07.81 Active confirmed 84468383 Problem Urge incontinence of urine N39.41 Active confirmed 37504269 Problem Fatty liver K76.0 Active confirmed 25015714 7 Problem Constipation, unspecified constipation type K59.00 Active confirmed 81742714 Problem Type 2 diabetes mellitus with hyperglycemia E11.65 Active confirmed 44683030 Problem Full incontinence of feces R15.9 Active confirmed 48862598 Problem Other chronic pain G89.29 Active confirmed 8 8513332 Problem Hypothyroidism, unspecified E03.9 Active confirmed 03791847 Problem Abnormal mammogram R92.8 Active confirmed 1 80066814 Problem Mixed hyperlipidemia E78.2 Active confirmed 185092442 Problem Medicare annual wellness visit, subsequent Z00.00 Active confirmed 545273548 Problem long-term (current) use of insulin Z79.4 Activ e confirmed 249499682 ALLERGIES No Known Allergies ENCOUNTERS from 1950 to 2020-11-18 Encounter Location Date Provider Diagnosis [facility] [place] [address] [place] [id number] Oct, Saryheber Guzman Lumbar pain M54.5 ; Hip pain M25.559 ; T ype 2 diabetes mellitus with hyperglycemia E11.65 ; Cervicalgia M54.2 ; Hypothyroidism, unspecified E03.9 ; Morbid (severe) obesity due to excess calories E66.01 ; Essential (primary) hypertension I10 and Other chronic pain G89.29 IMMUNIZATIONS Vaccine Route Administration Date Status COVID-19 dose #1 given elsewhere Unspecified Unknown Jun Administered Influenza 18 yrs & older Flublok IM Intramuscular Apr 09, 2018 Administered Pneumococcal 0.5mL Prevnar 13 IM Intramuscular May 23, 2020 A dministered Influenza 6mo & up Fluzone IM Intramuscular Jan 11, 2014 Admi nistered Influenza 6mo & up Fluzone IM Intramuscular 2013 Admi nistered Hepatitis B Adult 1.0mL Engerix-B IM Intramuscular October 04, 2015 Administered SOCIAL HISTORY Tobacco Use: Social History Observation Description Date Details (start date - stop date) Never Smoker Sex Assigned At : Social History Observation Description Sex Assigned At Unknown Education: Question Answer Notes Level of Education: Not finished High School 10 grade Audit Question Answer Notes Total Score: 0 Interpretation: Alcohol Education Language: Question Answer Notes Languages spoken: Italian Anglican: Question Answer Notes Anglican 13 Sabianism Sexual Hx: Question Answer Notes Had sex [...] FOR REFERRAL No Information VITAL SIGNS Weight 252.8 lbs Oct, Height 61 in Oct, BMI 47.76 kg/m2 Oct, Heart Rate 89 /min Oct, Respiratory Rate 18 /min Oct, Temperature 96.3 degrees Fahrenheit Oct, Oximetry 96 Oct, Blood pressure systolic 130 mm Hg Oct, Blood pressure diastolic 90 mm Hg 21 Jaren, 2021 MEDICATIONS Medication SIG (Take, Route, Frequency, Duration) Notes Start Da te End Date Status Amitriptyline HCl 50 MG 1 tablet at bedtime Orally O nce a day at bed time for 90 Active NovoLIN R FlexPen 100 UNIT/ML -2 14 units subcutaneous ly 4 x daily, MDD 64 units for 90 day(s) May, Active Glucometer as directed _ E11.9 for 30 day(s) Nov, Active Omeprazole 40 MG 1 capsule Orally Once a day for 90 Active Ramipril 10 mg 1 capsule Orally Once a day for 90 Active Atorvastatin Calcium 40 MG 1 tablet Orally Once a day for 90 Active Pen [place] 31G X 6 MM 1 injection subcutaneously E 11.9, 6 times daily for 90 days Active Benzonatate 100 MG 1-2 capsule as needed Orally Three times a day for 10 day(s) Jun, Active Potassium Chloride CR 20 MEQ 1 tablet Orally daily for 90 Active Drisdol 50,000 units 1 tab orally weekly for 90 day(s) Active Naproxen 500 MG 1 tablet Orally Twice a day for 90 day(s) Active CPAP Machine G47.33 intradermally daily use for 99 days Jun, Active Nystatin 076399 UNIT/GM 1 application to affected ar ea Externally Twice a day for 10 day(s) Apr, Active Escitalopram Oxalate 20 MG 1 tablet Orally Once a day for 90 Active Alcohol Pads 70 % as directed dx code E11.65 four times daily fo r 90 day(s) Jun, Active metFORMIN HCl 1000 mg 1 tablet with meals Orally twice a day for 90 d ays Active Levothyroxine Sodium 125 MCG 1 tablet on an empty stom ach in the morning Orally Once a day for 90 Active Chlorthalidone 25 mg 1 tablet in the morning with food Orally Once a day for 90 day(s) Active ZyrTEC 10 mg 1 tablet Orally Once a day for 30 day(s) Active Glimepiride 1 MG 1 tablet with breakfast or t he first main meal of the day Orally Once a day Active One touch ultra blue as directed DX:E11.9 twice daily for 100 da ys Nov, Active Flonase 50 MCG/ACT 1 spray in each nostril Nasally Once a day for 3 0 day(s) Active Fish Oil 1000 MG 2 capsule Orally twice daily for 90 day(s) Oct, Active Trulicity 0.75 MG/0.5ML INJECT CONTENTS OF 1 PEN UNDER THE SKIN GRADY RY WEEK Active Toujosé miguelo SoloStar 300 UNIT/ML 52 units Subcutaneous twice daily Active Lancets One touch DX code 250.00 as directed DX:E11.9 Twice a day for 30 day(s) Active PROCEDURES No Information RESULTS No Results REASON FOR VISIT Pt is c/o lower back pain when she is trying do do her daily activies. x 2 month s MEDICAL (GENERAL) HISTORY Type Description Date Medical [...] brain, ECHO. Medical History colonoscopy 06/06 Bruno wit h diverticulosis, 2003 had hyperplastic polyp Medical [...] Notes Treatment Notes Treatm ent Clinical Notes Oct, Lumbar pain (ICD-10 - M54.5) suspect combination of OS left hip along with DDD lumbar spine contributing to her symptoms. Start with imaging and PT. Consider MRI LS spine and refer to ortho to consider injections or possible hip replacement if hip OA is severe (await x-rays) Oct, Hip pain (ICD-10 - M25.559) Oct, Type 2 diabetes mellitus with hyperglycemia (ICD -10 - E11.65) Insulin dose increased by MA in April - no f/u labs since then. Will increase Metformin (tolerates current dose without side effects) Get labs next week Probably will plan to increase Trulicity and hope to stop Glimeperide possibly add Jardiance Oct, Cervicalgia (ICD-10 - M54.2) Oct, Hypothyroidism, unspecified (ICD-10 - E03.9) Oct, Morbid (severe) obesity due to excess calories ( ICD-10 - E66.01) Oct, Essential (primary) hypertension (ICD-10 - I10) Oct, Other chronic pain (ICD-10 - G89.29) PLAN OF TREATMENT Medication Medication Name Sig Start Date Stop Date Trulicity 0.75 MG/0.5ML INJECT CONTENTS OF 1 PEN UNDER THE SKIN EVERY WEEK T[place]olitario SoloStar 300 UNIT/ML 52 units Subcutaneous twice daily Glimepiride 1 MG 1 tablet with breakfast or t he first main meal of the day Orally Once a day metFORMIN HCl 1000 mg 1 tablet with meals Orally twice a day for 90 days Treatment Notes Assessment Notes Clinical Notes Lumbar pain suspect combination of OS left hip along with DDD lumbar spine contributing to her symptoms. Start with imaging and PT. Consider MRI LS spine and refer to ortho to consider injections or possible hip replacement if hip OA is severe (await x-rays) Type 2 diabetes mellitus with hyperglycemia Insulin dose increased by MA in April - no f/u labs since then.Will increase Metformin (tolerates current dose without side effects)Get labs next weekProbably will plan to increase Trulicity and hope to stop Glimeperidepossibly add Jardiance Treatment Notes Test Name Order Date ADM SPINE CERVICAL COMPLETE 2020-11-15 ADM HIP COMPLETE (AP/LAT) 2020-11-15 [facility] SPINE LS COMPLETE 2020-11-15 Future Test Test Name Order Date HEMOGLOBIN A1c [id number] Comprehensive Metabolic Profile (CMP) [id number] Next Appt Details f/u in 3 - 4 weeks, labs prior and x-ray s next week Reason: Provider Name:Sary Guzman, 2020-11 10:15:00 AM, [id number], , [place], [id number], Insurance Providers Payer Name Payer Address Payer Phone Insured Name Patient Relati onship to Insured Coverage Start Date Coverage End Date [facility] [employer] [facility] [address] [facility] [id number] JACOBY HAYWOOD self
--- OUTSIDE RECORDS SUMMARY | 2021-02-07 13:57 | CCD | Continuity of Care Document ---
Author Author Felicitas SIMMONS MD Organization Unknown Address [address] [place] [id number] Phone [phone] Care Team Providers Care Commissioning Agent Name Role Phone Les Guzman MD AUTM [phone] Sary Ramirez AUTM Problems Description No Information Available Social History Type Date Description Comments Sex Unknown Allergies, Adverse Reactions, Alerts Description No Information Available Medications Active Medications SIG Qnty Indications Ordering Provide r Date Cyclobenzaprine HCL 10mg Tablets 1 tab 3 times a day prn for spasms 60tabs José Simmons MD Glimepiride 1mg Tablets Felicia Welsh N, [facility] Onetouch Ultra 2 w/Device Kit Use as Directed Unknown Amoxicillin 875mg Tablets Take One Tablet By Mouth Every 12 Hours For 10 Days Unknown Pharmacist Choice Alcoholprep Pads Pads Test Two Times Daily Unknown Novolin R Flexpen 10 0Unit/ML Solution Pen-Inject Inject 2 14 Units Under Skin 4 Times A Day Maximum Daily Dose 64 Units Unknown Diazepam 2mg Tablets Take One Tablet By Mouth Three Times A Day as Needed For Anxiety Maximum Daily Dose 3 Tablets Unknown Lidocaine 5% Patches Apply 1 Patch To Area Of Pain Daily Remove After 12 Hours Unknown [place] Choice Comfort Ez Insulin Pen Nee dles [id number] 33G X 4 mm Misc Alpa Welsh N, [facility] [place] Choice Comfort Ez Insulin Pen Nee dles [id number] 33G X 4 mm Misc Inject Once A Day Unknown Pharmacist Choice Ultra Thin Lancets 31G 31G [facility] Jaquez Zaynab, [facility] 0 Pharmacist Choice Ultra Thin Lancets 31G 31G [facility] Test Twice Daily Unknown Simple Diagnostics Lancing Device [facility] Use as Directed Unknown Simple Diagnostics Lancing Device [facility] Jaquez Zay[place], [facility] Onetouch Ultra Strips [facility] Felicia Zaynab, [facility] Unifine Pentips Plus 31G X 6 mm [facility] Felicia Zaynab, [facility] Escitalopram Oxalate 20mg Tablets Take One Tablet By Mouth Once A Day Unknown Chlorthalidone 25mg Tablets [facility] Felicia Zaynab, [facility] Levothyroxine Sodium 125mcg Tablets [facility] Felicia , [facility] Atorvastatin Calcium 40mg Tablets Vibha Mccloud DO Naproxen 500mg Tablets Take One Tablet By Mouth Twice A Day Unknown Omeprazole 40mg Capsules DR Take One Capsule By Mouth Once A Day Unknown Ramipril 10mg Capsules Take One Capsule By Mouth Once A Day Unknown Potassium Chloride Diya ER 20Meq Tablets [facility] Felicia Zaynab, [facility] 0 Amitriptyline HCL 50mg Tablets Take One Tablet By Mouth AT Bedtime Unknown Metformin HCL 1000mg Tablets Take One Tablet By Mouth Twice A Day With Meals Unknown Trulicity 0.75mg/0.5 ML Solution Pen-Inject [facility] jarquin, [facility] 0 Toujeo Solostar 300U nit/ML Solution Pen-Inject Inject 52 Units Under The Skin Two Times A Day Unknown Amoxicillin/Clavulanate Potassium 875-125mg Tablets Maya Chen PA Immunizations Description No Information Available Vital Signs Date Vital Result Comment 12/11/2020 2:02pm Body Temperature 96.0 F Height 61 inches 5'1" Weight 248.00 lb BMI (Body Mass Index) 46.9 kg/m2 Results Description No Information Available Procedures Date Code Description Status 12/11/2020 54016 Office/Outpatient New Moderate M DM 45-59 Minutes Completed Medical Devices Description No Information Available Encounters Type Date Location Provider Dx Diagnosis Office Visit 12/11/2020 1:45p [place] José Simmons MD M54.5 Low back pain M54.2 Cervicalgia M47.892 Other spondylosis, cervical region Z68.42 Body mass index [BMI] 45.0-4 9.9, adult Assessments Date Code Description Provider 12/11/2020 M54.5 Low back pain José Simmons MD 12/11/2020 M54.2 Cervicalgia José Simmons MD 12/11/2020 M47.892 Other spondylosis, cervical susie on José Simmons MD 12/11/2020 Z68.42 Body mass index [BMI] 45.0-49.9, adult José Simmons MD Plan of Treatment 12/11/2020 - José Simmons MD* M54.5 Low back pain* New Orders:* Referral, Ordered: 12/11/20 * Follow up:* in 2-3 months with [facility] * M54.2 Cervicalgia* New Orders:* Referral, Ordered: 12/11/20 * M47.892 Other spondylosis, cervical region * Z68.42 Body mass index [BMI] 45.0-49.9, adult * All * New Medication:* Cyclobenzaprine HCL 10 mg - 1 tab 3 times a day prn for spasms Functional Status Description No Information Available Mental Status Description No Information Available Referrals Description No Information Available
--- OUTSIDE RECORDS SUMMARY | 2021-02-07 13:57 | CCD ---
Author Author [facility] Organization [facility] Address Unknown Phone Unavailable Care Team Providers Care Job Coaching Name Role Phone Felicia Velasco Unavailable PROBLEMS Type Condition ICD9-CM Code [id number] Code Onset Dates Condition S tatus W/U Status Risk SNOMED Code Notes Problem Dyspepsia K30 Active confirmed 920569585 Problem Essential (primary) hypertension I10 Active conf irmed 84794329 Problem Diverticulosis of large intestine without hemorrhage K57.30 Active confirmed 498775643 Problem Morbid (severe) obesity due to excess calories E66 .01 Active confirmed 973495203 Problem Hypomagnesemia E83.42 Active confirmed 58277 5004 Problem Obstructive sleep apnea (adult) (pediatric) G47.33 Active confirmed 82004723 Problem Vitamin D deficiency, unspecified E55.9 Active con firmed 81299599 Problem Full incontinence of feces R15.9 Active confirmed 19291836 Problem Urge incontinence of urine N39.41 Active confirmed 58442174 Problem Fatty liver K76.0 Active confirmed 06920306 7 Problem long term (current) use of insulin Z79.4 Activ e confirmed 362787260 Problem Hypothyroidism, unspecified E03.9 Active confirmed 25355334 Problem Type 2 diabetes mellitus with hyperglycemia E11.65 Active confirmed 17312685 Problem Postconcussional syndrome F07.81 Active confirmed 88735580 Problem Constipation, unspecified constipation type K59.00 Active confirmed 02058487 Problem Abnormal mammogram R92.8 Active confirmed 1 70597683 Problem Mixed hyperlipidemia E78.2 Active confirmed 615443553 Problem Medicare annual wellness visit, subsequent Z00.00 Active confirmed 134539517 ALLERGIES No Known Allergies ENCOUNTERS from 1950 to 2020-11-09 Encounter Location Date Provider Diagnosis [facility] [place] [place] [id number] Oct, 2020 Felicia Velasco IMMUNIZATIONS Vaccine Route Administration Date Status COVID-19 dose #1 given elsewhere Unspecified Unknown Mar 2020 Administered Influenza 18 yrs & older Flublok [...] Language: Question Answer Notes Languages spoken: Korean Samaritan: Question Answer Notes Samaritan 13 Christian Sexual Hx: Question Answer Notes Had sex [...] Notes Start Da te End Date Status metFORMIN HCl 1000 mg 1 tablet with meals Orally Once a day for 90 Active Potassium Chloride CR 20 MEQ 1 tablet Orally daily for 90 Active Levothyroxine Sodium 125 MCG 1 tablet on an empty stom ach in the morning Orally Once a day for 90 Active Ramipril 10 mg 1 capsule Orally Once a day for 90 Active Glimepiride 1 MG 1 tablet with breakfast or t he first main meal of the day Orally Once a day for 90 days Ac tive Omeprazole 40 MG 1 capsule Orally Once a day for 90 Active Escitalopram Oxalate 20 MG 1 tablet Orally Once a day for 90 Active Chlorthalidone 25 mg 1 tablet in the morning with food Orally Once a day for 90 day(s) Active ZyrTEC 10 mg 1 tablet Orally Once a day for 30 day(s) Active Naproxen 500 MG 1 tablet Orally Twice a day for 90 day(s) Active Toujeo SoloStar 300 UNIT/ML 52 units Subcutaneous twice daily for 9 0 day(s) Active NovoLIN R FlexPen 100 UNIT/ML -2 14 units subcutaneous ly 4 x daily, MDD 64 units for 90 day(s) May, Active Flonase 50 MCG/ACT 1 spray in each nostril Nasally Once a day for 3 0 day(s) Active CPAP Machine G47.33 intradermally daily use for 99 days Jun, Active Nystatin 480392 UNIT/GM 1 application to affected ar ea Externally Twice a day for 10 day(s) Apr, Active Fish Oil 1000 MG 2 capsule Orally twice daily for 90 day(s) Oct, Active Lancets One touch DX code 250.00 as directed DX:E11.9 Twice a day for 30 day(s) Active Pen [place] 31G X 6 MM 1 injection subcutaneously E 11.9, 6 times daily for 90 days Active Drisdol 50,000 units 1 tab orally weekly for 90 day(s) Active Trulicity 0.75 MG/0.5ML INJECT CONTENTS OF 1 PEN UND ER THE SKIN EVERY WEEK for 30 Active Atorvastatin Calcium 40 MG 1 tablet Orally Once a day for 90 Active Benzonatate 100 MG 1-2 capsule as needed Orally Three times a day for 10 day(s) Jun, Active Glucometer as directed _ E11.9 for 30 day(s) Nov, Active Alcohol Pads 70 % as directed dx code E11.65 four times daily fo r 90 day(s) Jun, Active One touch ultra blue as directed DX:E11.9 twice daily for 100 da ys Nov, Active Amitriptyline HCl 50 MG 1 tablet at bedtime Orally O nce a day at bed time for 90 Active PROCEDURES No Information RESULTS No Results REASON FOR VISIT CPAP script pressure change MEDICAL (GENERAL) HISTORY Type Description Date Medical [...] brain, ECHO. Medical History colonoscopy 06/06 Bruno mchugh diverticulosis, 2003 had hyperplastic polyp Medical History [...] Medication Name Sig Start Date Stop Date Toujeo SoloStar 300 UNIT/ML 52 units Subcutaneous twice daily fo r 90 day(s) Amitriptyline HCl 50 MG 1 tablet at bedtime Orally O nce a day at bed time for 90 CPAP Machine G47.33 intradermally daily use for 99 days 30 2020 Trulicity 0.75 MG/0.5ML INJECT CONTENTS OF 1 PEN UND ER THE SKIN EVERY WEEK for 30 Insurance Providers Payer Name Payer Address Payer Phone Insured Name Patient Relati onship to Insured Coverage Start Date Coverage End Date [facility] COMMUN[facility] PLAN [facility] [address] [facility] [id number] [phone] JACOBY HAYWOOD self
--- OUTSIDE RECORDS SUMMARY | 2021-02-07 13:57 | CCD ---
Author Author [facility] Organization [facility] Address Unknown Phone Unavailable Care Team Providers Care Urology Surgeon Name Role Phone Sary Guzman Unavailable PROBLEMS Type Condition ICD9-CM Code [id number] Code Onset Dates Condition S tatus W/U Status Risk SNOMED Code Notes Problem Dyspepsia K30 Active confirmed 544820829 Problem Diverticulosis of large intestine without hemorrhage K57.30 Active confirmed 418262309 Problem Morbid (severe) obesity due to excess calories E66 .01 Active confirmed 017732697 Problem Hypomagnesemia E83.42 Active confirmed 22875 5004 Problem Obstructive sleep apnea (adult) (pediatric) G47.33 Active confirmed 01799652 Problem Essential (primary) hypertension I10 Active conf irmed 19393048 Problem Vitamin D deficiency, unspecified E55.9 Active con firmed 26983741 Problem Postconcussional syndrome F07.81 Active confirmed 78939645 Problem Urge incontinence of urine N39.41 Active confirmed 48869764 Problem Fatty liver K76.0 Active confirmed 01769058 7 Problem Constipation, unspecified constipation type K59.00 Active confirmed 64694408 Problem Type 2 diabetes mellitus with hyperglycemia E11.65 Active confirmed 08319281 Problem Full incontinence of feces R15.9 Active confirmed 84498355 Problem Other chronic pain G89.29 Active confirmed 8 8444024 Problem Hypothyroidism, unspecified E03.9 Active confirmed 43258223 Problem Abnormal mammogram R92.8 Active confirmed 1 23109033 Problem Mixed hyperlipidemia E78.2 Active confirmed 760456978 Problem Medicare annual wellness visit, subsequent Z00.00 Active confirmed 472244816 Problem long-term (current) use of insulin Z79.4 Activ e confirmed [id number] ALLERGIES No Known Allergies ENCOUNTERS from 1950 to 2020-11-27 Encounter Location Date Provider Diagnosis [facility] [address] [place] [phone] Nov, Sary Megan Type 2 diabetes mellitus with hyperglyce kathleen E11.65 IMMUNIZATIONS Vaccine Route Administration Date Status COVID-19 [...] Education Language: Question Answer Notes Languages spoken: Uzbek Mu-Ism: Question Answer Notes Mu-Ism 13 Jehovah'S Witness Sexual Hx: Question Answer Notes Had sex [...] Notes Start Da te End Date Status Pen [place] 31G X 6 MM 1 injection subcutaneously E 11.9, 6 times daily for 90 days Active NovoLIN R FlexPen 100 UNIT/ML -2 14 units subcutaneous ly 4 x daily, MDD 64 units for 90 day(s) May, Active Amitriptyline HCl 50 MG 1 tablet at bedtime Orally O nce a day at bed time for 90 Active Omeprazole 40 MG 1 capsule Orally Once a day for 90 Active Ramipril 10 mg 1 capsule Orally Once a day for 90 Active Atorvastatin Calcium 40 MG 1 tablet Orally Once a day for 90 Active Toujeo SoloStar 300 UNIT/ML 52 units Subcutaneous twice daily for 90 days Active Benzonatate 100 MG 1-2 capsule as needed Orally Three times a day for 10 day(s) Jun, Active Potassium Chloride CR 20 MEQ 1 tablet Orally daily for 90 Active metFORMIN HCl 1000 mg 1 tablet with meals Orally twice a day for 90 d ays Active Drisdol 50,000 units 1 tab orally weekly for 90 day(s) Active ZyrTEC 10 mg 1 tablet Orally Once a day for 30 day(s) Active Glimepiride 1 MG 1 tablet with breakfast or t he first main meal of the day Orally Once a day Active Escitalopram Oxalate 20 MG 1 tablet Orally Once a day for 90 Active One touch ultra blue as directed DX:E11.9 twice daily for 100 da ys Nov, Active Nystatin 452463 UNIT/GM 1 application to affected ar ea Externally Twice a day for 10 day(s) Apr, Active Levothyroxine Sodium 125 MCG 1 tablet on an empty stom ach in the morning Orally Once a day for 90 Active Chlorthalidone 25 mg 1 tablet in the morning with food Orally Once a day for 90 day(s) Active Alcohol Pads 70 % as directed dx code E11.65 four times daily fo r 90 day(s) Jun, Active Glucometer as directed _ E11.9 for 30 day(s) Nov, Active Naproxen 500 MG 1 tablet Orally Twice a day for 90 day(s) Active CPAP Machine G47.33 intradermally daily use for 99 days Jun, Active Trulicity 0.75 MG/0.5ML INJECT CONTENTS OF 1 PEN UNDER THE SKIN GRADY RY WEEK Active Flonase 50 MCG/ACT 1 spray in each nostril Nasally Once a day for 3 0 day(s) Active Fish Oil 1000 MG 2 capsule Orally twice daily for 90 day(s) Oct, Active Lancets One touch DX code 250.00 as directed DX:E11.9 Twice a day for 30 day(s) Active PROCEDURES No Information RESULTS No Results REASON FOR VISIT refill MEDICAL (GENERAL) HISTORY Type Description Date Medical [...] Notes Treatment Notes Treatm ent Clinical Notes Nov, Type 2 diabetes mellitus with hyperglycemia (ICD -10 - E11.65) PLAN OF TREATMENT Medication Medication Name Sig Start Date Stop Date metFORMIN HCl 1000 mg 1 tablet with meals Orally twice a day for 90 days Trulicity 0.75 MG/0.5ML INJECT CONTENTS OF 1 PEN UNDER THE SKIN EVERY WEEK Toujeo SoloStar 300 UNIT/ML 52 units Subcutaneous twice daily fo r 90 days Glimepiride 1 MG 1 tablet with breakfast or t he first main meal of the day Orally Once a day Next Appt Details Provider Name:Saryheber rGoverstefano, 2020-11 10:15:00 AM, [address], , [place], [address], Insurance Providers Payer Name Payer Address Payer Phone Insured Name Patient Relati onship to Insured Coverage Start Date Coverage End Date [facility] COMMUNITY PLAN [facility] [address] [facility] [address] JACOBY HAYWOOD
--- OUTSIDE RECORDS SUMMARY | 2021-02-07 13:57 | CCD ---
Author Author [facility] Organization [facility] Address Unknown Phone Unavailable Care Team Providers Care Claims Configuration Analyst Name Role Phone HarperSary brooks Unavailable PROBLEMS Type Condition ICD9-CM Code [id number] Code Onset Dates Condition S tatus W/U Status Risk SNOMED Code Notes Problem Hypomagnesemia E83.42 Active confirmed 43327 5004 Problem Diverticulosis of large intestine without hemorrhage K57.30 Active confirmed 768069904 Problem Essential (primary) hypertension I10 Active conf irmed 33947863 Problem Morbid (severe) obesity due to excess calories E66 .01 Active confirmed 179033395 Problem Postconcussional syndrome F07.81 Active confirmed 82622673 Problem Obstructive sleep apnea (adult) (pediatric) G47.33 Active confirmed 98663185 Problem Hypothyroidism, unspecified E03.9 Active confirmed 09046041 Problem Vitamin D deficiency, unspecified E55.9 Active con firmed 47502783 Problem Fatty liver K76.0 Active confirmed 80247295 7 Problem Constipation, unspecified constipation type K59.00 Active confirmed 29062266 Problem Abnormal mammogram R92.8 Active confirmed 1 42531666 Problem Other chronic pain G89.29 Active confirmed 8 2946689 Problem Urge incontinence of urine N39.41 Active confirmed 46391895 Problem Acquired hypothyroidism E03.9 Active confirmed 567259200 Problem Full incontinence of feces R15.9 Active confirmed 90785991 Problem Dyspepsia K30 Active confirmed 721708072 Problem Mixed hyperlipidemia E78.2 Active confirmed 421877042 Problem Medicare annual wellness visit, subsequent Z00.00 Active confirmed 769023889 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 Activ e confirmed 670793802 Problem Type 2 diabetes mellitus with hyperglycemia E11.65 Active confirmed 37586715 ALLERGIES No Known Allergies ENCOUNTERS from 1950 to 2020-12-22 Encounter Location Date Provider Diagnosis [facility] [place] [address] [place] [address] [address] [place] [phone] Nov, Sary Guzman Type 2 diabetes mellitus with hyperglyce kathleen E11.65 ; Candidiasis B37.9 ; Viral upper respiratory tract infection J06.9 ; Acquired hypothyroidism E03.9 ; Vitamin D deficiency, unspecified E55.9 and Hypomagnesemia E83.42 IMMUNIZATIONS Vaccine Route Administration Date Status COVID-19 [...] Education Language: Question Answer Notes Languages spoken: Paraguayan Mandaeism: Question Answer Notes Mandaeism 13 Mandaen Sexual Hx: Question Answer Notes Had sex [...] No Information VITAL SIGNS Weight 253 lbs Nov, Height 61 in Nov, BMI 47.80 kg/m2 Nov, Heart Rate 87 /min Nov, Respiratory Rate 18 /min Nov, Temperature 97.6 degrees Fahrenheit Nov, Oximetry 97 Nov, Blood pressure systolic 120 mm Hg Nov, Blood pressure diastolic 80 mm Hg Nov, MEDICATIONS Medication SIG (Take, Route, Frequency, Duration) Notes Start Da te End Date Status Escitalopram Oxalate 20 MG 1 tablet Orally Once a day for 90 Active Atorvastatin Calcium 40 MG 1 tablet Orally Once a day for 90 Active Chlorthalidone 25 mg 1 tablet in the morning with food Orally Once a day for 90 day(s) Active Benzonatate 100 MG 1-2 capsule as needed Orally Three times a day for 10 day(s) Jun, Active Ramipril 10 mg 1 capsule Orally Once a day for 90 Active Trulicity 1.5 MG/0.5ML inject contents of 1 pen und er the skin every week Subcutaneous weekly for 30 days Active Augmentin 875-125 MG 1 tablet Orally every 12 hrs Active Toujeo SoloStar 300 UNIT/ML INJECT 52 UNITS UNDER THE SKIN TWO TIME S A DAY Active Drisdol 50,000 units 1 tab orally weekly Active metFORMIN HCl 1000 mg 1 tablet with meals Orally twice a day Active One touch ultra blue as directed DX:E11.9 twice daily for 100 da ys Nov, Active Lancets One touch DX code 250.00 as directed DX:E11.9 Twice a day for 30 day(s) Active Amitriptyline HCl 50 MG 1 tablet at bedtime Orally O nce a day at bed time for 90 Active Nystatin 054913 UNIT/GM 1 application Externally Twi ce a day under arms for 30 days Nov, Active Levothyroxine Sodium 125 MCG 1 tablet on an empty stom ach in the morning Orally Once a day Active Alcohol Pads 70 % as directed dx code E11.65 four times daily fo r 90 day(s) Jun, Active NovoLIN R FlexPen 100 UNIT/ML -2 14 units subcutaneous ly 4 x daily, MDD 64 units May, Active Omeprazole 40 MG 1 capsule Orally Once a day for 90 Active Potassium Chloride CR 20 MEQ 1 tablet Orally daily for 90 Active ZyrTEC 10 mg 1 tablet Orally Once a day for 30 day(s) Active Pen Levels 31G X 6 MM 1 injection subcutaneously E 11.9, 6 times daily for 90 days Active CPAP Machine G47.33 intradermally daily use for 99 days Jun, Active Fish Oil 1000 MG 2 capsule Orally twice daily for 90 day(s) Oct, Active Nystatin 455347 UNIT/GM 1 application to affected ar ea Externally Twice a day for 10 day(s) Apr, Active Flonase 50 MCG/ACT 1 spray in each nostril Nasally Once a day for 3 0 day(s) Active Glucometer as directed _ E11.9 for 30 day(s) Nov, Active Naproxen 500 MG 1 tablet Orally Twice a day for 90 day(s) Active PROCEDURES No Information RESULTS No Results REASON FOR VISIT 4 week, med refill nystatin MEDICAL (GENERAL) HISTORY Type Description Date Medical [...] mellitus with hyperglycemia (ICD -10 - E11.65) Improving with current tx Nov, Candidiasis (ICD-10 - B37.9) Nov, Viral upper respiratory tract infection (ICD-10 - J06.9) Nov, Acquired hypothyroidism (ICD-10 - E03.9) Nov, Vitamin D deficiency, unspecified (ICD-10 - E55. 9) Nov, Hypomagnesemia (ICD-10 - E83.42) PLAN OF TREATMENT Medication Medication Name Sig Start Date Stop Date Nystatin 484317 UNIT/GM 1 application Externally Twi ce a day under arms for 30 days Nov, NovoLIN R FlexPen 100 UNIT/ML -2 14 units subcutaneous ly 4 x daily, MDD 64 units May, Drisdol 50,000 units 1 tab orally weekly Augmentin 875-125 MG 1 tablet Orally every 12 hrs Tousolitario SoloStar 300 UNIT/ML INJECT 52 UNITS UNDER THE SKIN TWO T IMES A DAY Levothyroxine Sodium 125 MCG 1 tablet on an empty stom ach in the morning Orally Once a day metFORMIN HCl 1000 mg 1 tablet with meals Orally twice a day Trulicity 1.5 MG/0.5ML inject contents of 1 pen und er the skin every week Subcutaneous weekly for 30 days Treatment Notes Assessment Notes Clinical Notes Type 2 diabetes mellitus with hyperglycemia Improving with current tx Future Test Test Name Order Date VITAMIN D 25-HYDROXY [id number] VITB12 & FOL [id number] MAGNESIUM LEVEL [id number] FREE T4 & TSH PANEL [id number] LIPID PANEL (CARDIAC RISK) [id number] HEMOGLOBIN A1c [id number] Comprehensive Metabolic Profile (CMP) [id number] CBC - Complete Blood Count [id number] Next Appt Details 3 Months, labs prior Reason: Provider Name:Sary Guzman, 2021-02 02:45:00 PM, [address] , [place], [address], Insurance Providers Payer Name Payer Address Payer Phone Insured Name Patient Relati onship to Insured Coverage Start Date Coverage End Date [facility] [address] [facility] [phone] JACOBY HAYWOOD self
--- OUTSIDE RECORDS SUMMARY | 2021-02-07 13:58 | CCD ---
Author Author [facility] Organization [facility] Address Unknown Phone Unavailable Care Team Providers Care Certified Lactation Educator Name Role Phone Joni Hinton MD Unavailable Unavailable Joni Hinton MD Unavailable Unavailable Joni Hinton MD Unavailable Unavailable Joni Hinton MD Unavailable Unavailable Joni Hinton MD Unavailable Unavailable Joni Hinton MD Unavailable Unavailable Joni Hinton MD Unavailable Unavailable Joni Hinton MD Unavailable Unavailable Joni Hinton MD Unavailable Unavailable Joni Hinton MD Unavailable Unavailable Joni Hinton MD Unavailable Unavailable Joni Hinton MD Unavailable Unavailable Joni Hinton MD Unavailable Unavailable Joni Hinton MD Unavailable Unavailable Joni Hinton MD Unavailable Unavailable Joni Hinton MD Unavailable Unavailable oJni Hinton MD Unavailable Unavailable Joni Hinton MD Unavailable Unavailable Joni Hinton MD Unavailable Unavailable Joni Hinton MD Unavailable Unavailable Joni Hinton MD Unavailable Unavailable Joni Hinton MD Unavailable Unavailable Joni Hinton MD Unavailable Unavailable Joni Hinton MD Unavailable Unavailable Joni Hinton MD Unavailable Unavailable Joni Hinton MD Unavailable Unavailable Joni Hinton MD Unavailable Unavailable Joni Hinton MD Unavailable Unavailable Joni Hinton MD Unavailable Unavailable Joni Hinton MD Unavailable Unavailable Joni Hinton MD Unavailable Unavailable Joni Hinton MD Unavailable Unavailable Hinton, L José MD Unavailable Unavailable Hinton, L José MD Unavailable Unavailable Hinton, L José MD Unavailable Unavailable Hinton, L José MD Unavailable Unavailable Hinton, L José MD Unavailable Unavailable Hinton, L José MD Unavailable Unavailable Hinton, L José MD Unavailable Unavailable Hinton, L José MD Unavailable Unavailable Hinton, L José MD Unavailable Unavailable Hinton, L José MD Unavailable Unavailable Hinton, L José MD Unavailable Unavailable Hinton, L José MD Unavailable Unavailable Hinton, L José MD Unavailable Unavailable Hinton, L José MD Unavailable Unavailable Hinton, L José MD Unavailable Unavailable Hinton, L José MD Unavailable Unavailable Hinton, L José MD Unavailable Unavailable Re-disclosure Warning The records that [...] is protected by Article 27-F of the [facility] Public Health law. If you continue you may have access to information: Regarding HIV / AIDS; Provided by facilities licensed or operated by the [facility] Office of Mental Health; or Provided by the [facility] Office for People With Developmental Disabilities. If such information is present, then the following [facility] mandated warning applies: This information has [...] law may result in a fine or mcfp sentence or both. A general authorization for the release of medical or other information is NOT sufficient authorization for further disc losure. Family History Family Member Name Family Member Gender Family Member Status Date o f Status Description Data Source(s) Unknown Male Problem MEDENT ([facility]) () Unknown Unknown Problem MEDENT ([facility]) Unknown Unknown Problem MEDENT ([facility]) Unknown Unknown Problem MEDENT ([facility]) Encounters Encounter Providers Location Date Indications Data Source(s ) Office Visit, Est Pt., Level 4 [address] [place] [address] 12/12/2020 12:00:00 AM EDT eCW1 ([facility]) Outpatient Attender: José Hinton MD Physical Therapy 12/11/2020 0 1:45:00 PM EDT MEDENT ([facility]) [place] [address] [facility] [address] 11/27/2020 12:00:00 AM EDT eCW1 ([facility]) [place] [address] [facility] [place] [address] 11/15/2020 12:00:00 AM EDT eCW1 ([facility]) Unknown [address] [facility] [place] [address] 11/07/2020 12:00:00 AM EDT eCW1 ([facility]) Unknown [address] [facility] [place] [address] 10/03/2020 12:00:00 AM EDT eCW1 ([facility]) Unknown [address] [facility] [place] [address] 10/03/2020 12:00:00 AM EDT eCW1 ([facility]) Unknown [address] [facility] [place] [address] 09/18/2020 12:00:00 AM EDT eCW1 ([facility]) Unknown [address] [facility] [place] [address] 08/24/2020 12:00:00 AM EDT eCW1 ([facility]) Unknown [address] [facility] [place] [address] 08/24/2020 12:00:00 AM EDT eCW1 ([facility]) [place] [address] [facility] [address] 08/08/2020 12:00:00 AM EDT eCW1 ([facility]) Office Visit, Est Pt., Level 4 PC [address] [place] [address] 07/25/2020 12:00:00 AM EDT eCW1 ([facility]) [place] [address] [facility] [address] 07/13/2020 12:00:00 AM EDT eCW1 ([facility]) [place] [address] [facility] [place] [address] 07/11/2020 12:00:00 AM EDT eCW1 ([facility]) Office Visit, Est Pt., Level 4 PC [address] [place] [address] 06/20/2020 12:00:00 AM EST eCW1 ([facility]) [place] [address] [facility] [address] 06/19/2020 12:00:00 AM EST eCW1 ([facility]) [place] [address] [facility] [address] 06/19/2020 12:00:00 AM EST eCW1 ([facility]) Unknown [address] [facility] [place] [address] 06/19/2020 12:00:00 AM EST eCW1 ([facility]) [place] [address] [facility] [address] 06/19/2020 12:00:00 AM EST eCW1 ([facility]) [place] [address] [facility] [place] [address] 06/19/2020 12:00:00 AM EST eCW1 ([facility]) [place] [address] [facility] [place] [address] 06/19/2020 12:00:00 AM EST eCW1 ([facility]) [place] [address] [facility] [address] 06/07/2020 12:00:00 AM EST eCW1 ([facility]) Unknown [address] [facility] [address] 06/01/2020 12:00:00 AM EST eCW1 ([facility]) Office Visit, Est Pt., Level 4 PC [address] [place] [address] 05/29/2020 12:00:00 AM EST eCW1 ([facility]) Unknown [address] [facility] [address] 05/24/2020 12:00:00 AM EST eCW1 ([facility]) Outpatient [address] [facility] [address] 05/23/2020 12:00:00 AM EST eCW1 ([facility]) Unknown [address] [facility] [address] 05/12/2020 12:00:00 AM EST eCW1 ([facility]) Unknown [address] [facility] [address] 02/10/2020 12:00:00 AM EDT eCW1 ([facility]) Immunizations Vaccine Date Status Description Data Source(s) COVID-19 VACCINE Moderna 08/15/2020 12:00:00 AM EDT completed [facility] Vaccine Series Complete: YESThis Data wa s Submitted to [facility] Via [facility]. COVID-19 VACC,MRNA(MODERNA)/PF 08/15/2020 12:00:00 AM EDT completed [facility] COVID-19 dose #1 given elsewhere Unspecified 06/30/2020 04:1 8:00 PM EST completed eCW1 ([facility]) COVID-19 dose #1 given elsewhere Unspecified 06/30/2020 04:1 8:00 PM EST completed eCW1 ([facility]) COVID-19 dose #1 given elsewhere Unspecified 06/30/2020 04:1 8:00 PM EST completed eCW1 ([facility]) COVID-19 dose #1 given elsewhere Unspecified 06/30/2020 04:1 8:00 PM EST completed eCW1 ([facility]) COVID-19 dose #1 given elsewhere Unspecified 06/30/2020 04:1 8:00 PM EST completed eCW1 ([facility]) COVID-19 dose #1 given elsewhere Unspecified 06/30/2020 04:1 8:00 PM EST completed eCW1 ([facility]) COVID-19 dose #1 given elsewhere Unspecified 06/30/2020 04:1 8:00 PM EST completed eCW1 ([facility]) COVID-19 dose #1 given elsewhere Unspecified 06/30/2020 04:1 8:00 PM EST completed eCW1 ([facility]) COVID-19 dose #1 given elsewhere Unspecified 06/30/2020 04:1 8:00 PM EST completed eCW1 ([facility]) COVID-19 dose #1 given elsewhere Unspecified 06/30/2020 04:1 8:00 PM EST completed eCW1 ([facility]) COVID-19 dose #1 given elsewhere Unspecified 06/30/2020 04:1 8:00 PM EST completed eCW1 ([facility]) COVID-19 VACCINE Moderna 06/30/2020 12:00:00 AM EST completed [facility] Vaccine Series Complete: NOThis Data was Submitted to [facility] Via [facility]. COVID-19 VACCINE, MRNA-[id number], LNP-S (MODERNA)/PF 06/30/2020 1 2:00:00 AM EST completed [facility] Pneumococcal conjugate PCV 13 05/23/2020 11:52:00 AM EST completed eCW1 ([facility]) Pneumococcal conjugate PCV 13 05/23/2020 11:52:00 AM EST completed eCW1 ([facility]) Pneumococcal conjugate PCV 13 05/23/2020 11:52:00 AM EST completed eCW1 ([facility]) Pneumococcal conjugate PCV 13 05/23/2020 11:52:00 AM EST completed eCW1 ([facility]) Pneumococcal conjugate PCV 13 05/23/2020 11:52:00 AM EST completed eCW1 ([facility]) Pneumococcal conjugate PCV 13 05/23/2020 11:52:00 AM EST completed eCW1 ([facility]) Pneumococcal conjugate PCV 13 05/23/2020 11:52:00 AM EST completed eCW1 ([facility]) Pneumococcal conjugate PCV 13 05/23/2020 11:52:00 AM EST completed eCW1 ([facility]) Pneumococcal conjugate PCV 13 05/23/2020 11:52:00 AM EST completed eCW1 ([facility]) Pneumococcal conjugate PCV 13 05/23/2020 11:52:00 AM EST completed eCW1 ([facility]) Pneumococcal conjugate PCV 13 05/23/2020 11:52:00 AM EST completed eCW1 ([facility]) Pneumococcal conjugate PCV 13 05/23/2020 11:52:00 AM EST completed eCW1 ([facility]) Pneumococcal conjugate PCV 13 05/23/2020 11:52:00 AM EST completed eCW1 ([facility]) Pneumococcal conjugate PCV 13 05/23/2020 11:52:00 AM EST completed eCW1 ([facility]) Pneumococcal conjugate PCV 13 05/23/2020 11:52:00 AM EST completed eCW1 ([facility]) Pneumococcal conjugate PCV 13 05/23/2020 11:52:00 AM EST completed eCW1 ([facility]) Pneumococcal conjugate PCV 13 05/23/2020 11:52:00 AM EST completed eCW1 ([facility]) Pneumococcal conjugate PCV 13 05/23/2020 11:52:00 AM EST completed eCW1 ([facility]) Pneumococcal conjugate PCV 13 05/23/2020 11:52:00 AM EST completed eCW1 ([facility]) Pneumococcal conjugate PCV 13 05/23/2020 11:52:00 AM EST completed eCW1 ([facility]) Pneumococcal conjugate PCV 13 05/23/2020 11:52:00 AM EST completed eCW1 ([facility]) Pneumococcal conjugate PCV 13 05/23/2020 11:52:00 AM EST completed eCW1 ([facility]) Pneumococcal conjugate PCV 13 05/23/2020 11:52:00 AM EST completed eCW1 ([facility]) Pneumococcal conjugate PCV 13 05/23/2020 11:52:00 AM EST completed eCW1 ([facility]) Pneumococcal conjugate PCV 13 05/23/2020 11:52:00 AM EST completed eCW1 ([facility]) INFLUENZA VACCINE QUADRIVALENT 2020- (65 YR UP)/MF59 C.1/PF 03/13/2020 12:00:00 AM EST completed [facility] Medications Medication Brand Name Start Date Product Form Dose Route Admi nistrative Instructions Pharmacy Instructions Status Indications Reaction Description Data Source(s) 1.5 ML Insulin Glargine 300 UNT/ML Pen Injector [Touje o] 300 unit/mL (1.5 mL) INSULIN GLARGINE,HUM.REC.ANLOG 01/03/2021 12:00:00 AM EDT insulin pen 13 INJECT 52UNITS UNDER THE SKIN TWO TIMES A DAY INJECT 52UNITS UNDER THE SKIN TWO TIMES A DAY SOLD: 01/04/2021 [facility] 20 mEq 12/28/2020 12:00:00 AM EDT tablet,ER particles/cry stals 90 TAKE ONE TABLET BY MOUTH EVERY DAY TAKE ONE TABLET BY MOUTH EVERY DAY SOLD: 01/01/2021 [facility] 25 mg 12/27/2020 12:00:00 AM EDT tablet 90 TAKE ONE TABLET BY MOUTH EVERY MORNING WITH FOOD TAKE ONE TABLET BY MOUTH EVERY MORNING WITH FOOD SOLD: 01/01/2021 [facility] 40 mg 12/27/2020 12:00:00 AM EDT capsule,delayed release (DR/EC) 90 TAKE ONE CAPSULE BY MOUTH EVERY DAY TAKE ONE CAPSULE BY MOUTH EVERY DAY SOLD: 01/01/2021 [facility] 125 mcg 12/27/2020 12:00:00 AM EDT tablet 90 TAKE ONE TABLET BY MOUTH EVERY MORNING ON EMPTY STOMACH TAKE ONE TABLET BY MOUTH EVERY MORNING O N EMPTY STOMACH SOLD: 01/01/2021 [facility] Escitalopram 20 MG Oral Tablet ESCITALOPRAM OXALATE 12/27/2020 1 2:00:00 AM EDT tablet 90 TAKE ONE TABLET BY MOUTH EVERY D AY TAKE ONE TABLET BY MOUTH EVERY DAY SOLD: 01/01/2021 [facility] Ramipril 10 MG Oral Capsule RAMIPRIL 12/27/2020 12:00:00 AM EDT capsu le 90 TAKE ONE CAPSULE BY MOUTH EVERY DAY TAKE ONE CAPSULE BY MOUTH EVERY DAY SOLD: 01/01/2021 [facility] atorvastatin 40 MG Oral Tablet ATORVASTATIN CALCIUM 12/25/2020 1 2:00:00 AM EDT tablet 90 TAKE ONE TABLET BY MOUTH EVERY D AY TAKE ONE TABLET BY MOUTH EVERY DAY SOLD: 01/01/2021 [facility] 500 mg 12/25/2020 12:00:00 AM EDT tablet 180 TAKE ONE TABLET BY MOUTH TWICE A DAY TAKE ONE TABLET BY MOUTH TWICE A DAY SOLD: 01/01/2021 [facility] Cyclobenzaprine hydrochloride 10 MG Oral Tablet CYCLOBENZAPR INE HCL 12/12/2020 12:00:00 AM EDT tablet 60 TAKE ONE TABLET BY MOUTH THREE TIMES A DAY NEEDED FOR SPASMS TAKE ONE TABLET BY MOUTH THREE TIMES A DAY NEEDED F OR SPASMS SOLD: 12/12/2020 [facility] 100,000 unit/gram 12/12/2020 12:00:00 AM EDT cream 30 APPLY 1 APPLICATION EXTERNALLY TWO TIMES A DAY UNDER ARMS APPLY 1 APPLICATION EXTERNALLY TWO TIMES A DAY UNDER ARMS SOLD: 12/12/2020 [facility] 1.5 mg/0.5 mL 12/12/2020 12:00:00 AM EDT pen injector 2 INJECT 1 PEN UNDER THE SKIN ONCE WEEKLY INJECT 1 PEN UNDER THE SKIN ONCE WEEKLY SOLD: 01/04/2021 [facility] Nystatin 369985 UNT/ML Topical Cream Nystatin 252493 U NIT/GM Nystatin [id number] UNIT/GM 12/12/2020 12:00:00 AM EDT 1.0 {application} active Nystatin 005165 UNIT/GM eCW1 ([facility]) 1.5 mg/0.5 mL 12/12/2020 12:00:00 AM EDT pen injector 2 INJECT 1 PEN UNDER THE SKIN ONCE WEEKLY INJECT 1 PEN UNDER THE SKIN ONCE WEEKLY SOLD: 12/12/2020 [facility] Cyclobenzaprine hydrochloride 10 MG Oral Tablet Cyclobenzapr ine HCL 12/11/2020 12:00:00 AM EDT active M [facility] ([facility] ) Amoxicillin 875 MG / Clavulanate 125 MG Oral Tablet 87 5-125 mg AMOXICILLIN/POTASSIUM CLAV 12/09/2020 12:00:00 AM EDT tablet 14 TAKE ONE TABLET BY MOUTH TWO TIMES A DAY FOR 7 DAYS TAKE ONE TABLET BY MOUTH TWO TIMES A DAY FOR 7 DAYS SOLD: 12/10/2020 [facility] 200 mg 12/09/2020 12:00:00 AM EDT capsule 21 TAKE ONE CAPSULE BY MOUTH THREE TIMES A DAY FOR 7 DAYS TAKE ONE CAPSULE BY MOUTH THREE TIMES A DAY FOR 7 DAYS SOLD: 12/10/2020 [facility] 1.5 ML Insulin Glargine 300 UNT/ML Pen Injector [Touje o] 300 unit/mL (1.5 mL) INSULIN GLARGINE,HUM.REC.ANLOG 11/28/2020 12:00:00 AM EDT insulin pen 13 INJECT 52 UNITS UNDER THE SKIN TWO TIMES A DAY INJECT 52 UNITS UNDER THE SKIN TWO TIMES A DAY SOLD: 12/01/2020 [facility] 1,000 mg 11/16/2020 12:00:00 AM EDT tablet 180 TAKE ONE TABLET BY MOUTH TWICE A DAY WITH MEALS TAKE ONE TABLET BY MOUTH TWICE A DAY WITH MEALS SOLD: 12/01/2020 [facility] 0.75 mg/0.5 mL 10/03/2020 12:00:00 AM EDT pen injector 2 INJECT 1 PEN UNDER THE SKIN ONCE WEEKLY INJECT 1 PEN UNDER THE SKIN ONCE WEEKLY SOLD: 12/01/2020 [facility] 0.75 mg/0.5 mL 10/03/2020 12:00:00 AM EDT pen injector 2 INJECT 1 PEN UNDER THE SKIN ONCE WEEKLY INJECT 1 PEN UNDER THE SKIN ONCE WEEKLY SOLD: 10/30/2020 [facility] 0.75 mg/0.5 mL 10/03/2020 12:00:00 AM EDT pen injector 2 INJECT 1 PEN UNDER THE SKIN ONCE WEEKLY INJECT 1 PEN UNDER THE SKIN ONCE WEEKLY SOLD: 10/06/2020 [facility] 50 mg 09/27/2020 12:00:00 AM EDT tablet 90 TAKE ONE TABLET BY MOUTH AT BEDTIME TAKE ONE TABLET BY MOUTH AT BEDTIME SOLD: 09/29/2020 [facility] 50 mg 09/27/2020 12:00:00 AM EDT tablet 90 TAKE ONE TABLET BY MOUTH AT BEDTIME TAKE ONE TABLET BY MOUTH AT BEDTIME SOLD: 01/01/2021 [facility] 0.75 mg/0.5 mL 08/08/2020 12:00:00 AM EDT pen injector 2 INJECT 1 PEN UNDER THE SKIN ONCE WEEKLY INJECT 1 PEN UNDER THE SKIN ONCE WEEKLY SOLD: 09/04/2020 [facility] 0.75 mg/0.5 mL 08/08/2020 12:00:00 AM EDT pen injector 2 INJECT 1 PEN UNDER THE SKIN ONCE WEEKLY INJECT 1 PEN UNDER THE SKIN ONCE WEEKLY SOLD: 08/12/2020 [facility] 1.5 ML Insulin Glargine 300 UNT/ML Pen Injector [Touje o] 300 unit/mL (1.5 mL) INSULIN GLARGINE,HUM.REC.ANLOG 07/27/2020 12:00:00 AM EDT insulin pen 13 INJECT 52 UNITS UNDER THE SKIN TWO TIMES A DAY INJECT 52 UNITS UNDER THE SKIN TWO TIMES A DAY SOLD: 10/27/2020 [facility] 1.5 ML Insulin Glargine 300 UNT/ML Pen Injector [Touje o] 300 unit/mL (1.5 mL) INSULIN GLARGINE,HUM.REC.ANLOG 07/27/2020 12:00:00 AM EDT insulin pen 13 INJECT 52 UNITS UNDER THE SKIN TWO TIMES A DAY INJECT 52 UNITS UNDER THE SKIN TWO TIMES A DAY SOLD: 09/15/2020 [facility] 300 unit/mL (1.5 mL) 07/27/2020 12:00:00 AM EDT insulin pen 13 INJECT 52 UNITS UNDER THE SKIN TWO TIMES A DAY INJECT 52 UNITS UNDER THE SKIN TWO TIMES A DAY SOLD: 07/31/2020 [facility] CPAP Machine UNK 07/25/2020 12:00:00 AM EDT activ e CPAP Machine eCW1 ([facility]) CPAP Machine UNK 07/25/2020 12:00:00 AM EDT activ e CPAP Machine eCW1 ([facility]) CPAP Machine UNK 07/25/2020 12:00:00 AM EDT activ e CPAP Machine eCW1 ([facility]) CPAP Machine UNK 07/25/2020 12:00:00 AM EDT activ e CPAP Machine eCW1 ([facility]) CPAP Machine UNK 07/25/2020 12:00:00 AM EDT activ e CPAP Machine eCW1 ([facility]) CPAP Machine UNK 07/25/2020 12:00:00 AM EDT activ e CPAP Machine eCW1 ([facility]) CPAP Machine UNK 07/25/2020 12:00:00 AM EDT activ e CPAP Machine eCW1 ([facility]) CPAP Machine UNK 07/25/2020 12:00:00 AM EDT activ e CPAP Machine eCW1 ([facility]) CPAP Machine UNK 07/25/2020 12:00:00 AM EDT activ e CPAP Machine eCW1 ([facility]) CPAP Machine UNK 07/25/2020 12:00:00 AM EDT activ e CPAP Machine eCW1 ([facility]) CPAP Machine UNK 07/25/2020 12:00:00 AM EDT activ e CPAP Machine eCW1 ([facility]) Alcohol Pads 70 % Alcohol Pads 70 % 07/11/2020 12:00:00 AM EDT active Alcohol Pads 70 % eCW1 ([facility]) Alcohol Pads 70 % Alcohol Pads 70 % 07/11/2020 12:00:00 AM EDT active Alcohol Pads 70 % eCW1 ([facility]) Alcohol Pads 70 % Alcohol Pads 70 % 07/11/2020 12:00:00 AM EDT active Alcohol Pads 70 % eCW1 ([facility]) Alcohol Pads 70 % Alcohol Pads 70 % 07/11/2020 12:00:00 AM EDT active Alcohol Pads 70 % eCW1 ([facility]) Alcohol Pads 70 % Alcohol Pads 70 % 07/11/2020 12:00:00 AM EDT active Alcohol Pads 70 % eCW1 ([facility]) Alcohol Pads 70 % Alcohol Pads 70 % 07/11/2020 12:00:00 AM EDT active Alcohol Pads 70 % eCW1 ([facility]) Alcohol Pads 70 % Alcohol Pads 70 % 07/11/2020 12:00:00 AM EDT active Alcohol Pads 70 % eCW1 ([facility]) Alcohol Pads 70 % Alcohol Pads 70 % 07/11/2020 12:00:00 AM EDT active Alcohol Pads 70 % eCW1 ([facility]) Alcohol Pads 70 % Alcohol Pads 70 % 07/11/2020 12:00:00 AM EDT active Alcohol Pads 70 % eCW1 ([facility]) Alcohol Pads 70 % Alcohol Pads 70 % 07/11/2020 12:00:00 AM EDT active Alcohol Pads 70 % eCW1 ([facility]) Alcohol Pads 70 % Alcohol Pads 70 % 07/11/2020 12:00:00 AM EDT active Alcohol Pads 70 % eCW1 ([facility]) Alcohol Pads 70 % Alcohol Pads 70 % 07/11/2020 12:00:00 AM EDT active Alcohol Pads 70 % eCW1 ([facility]) 31 gauge x 1/4" 07/11/2020 12:00:00 AM EDT needle 540 USE 6 TIMES A DAY USE 6 TIMES A DAY SOLD: 07/13/2020 [facility] Alcohol Pads 70 % Alcohol Pads 70 % 07/11/2020 12:00:00 AM EDT active Alcohol Pads 70 % eCW1 ([facility]) Escitalopram 20 MG Oral Tablet ESCITALOPRAM OXALATE 06/20/2020 1 2:00:00 AM EST tablet 90 TAKE ONE TABLET BY MOUTH ONCE A DAY TAKE ONE TABLET BY MOUTH ONCE A DAY SOLD: 09/29/2020 [facility] 25 mg 06/20/2020 12:00:00 AM EST tablet 90 TAKE ONE TABLET BY MOUTH IN THE MORNING WITH FOOD ONCE A DAY TAKE ONE TABLET BY MOUTH IN THE MORNING WITH FOOD ONCE A DAY SOLD: 09/29/2020 [facility] 40 mg 06/20/2020 12:00:00 AM EST capsule,delayed release (DR/EC) 90 TAKE ONE CAPSULE BY MOUTH ONCE A DAY TAKE ONE CAPSULE BY MOUTH ONCE A DAY SOLD: 06/30/2020 [facility] 125 mcg 06/20/2020 12:00:00 AM EST tablet 90 TAKE ONE TABLET BY MOUTH ON AN EMPTY STOMACH IN THE MORNING ONCE A DAY TAKE ONE TABLET BY MOUTH ON AN EMPTY STOMACH IN THE MORNING ONCE A DAY SOLD: 09/29/2020 [facility] glimepiride 1 MG Oral Tablet GLIMEPIRIDE 06/20/2020 12:00:00 AM EST ta blet 90 TAKE 1 TABLET BY MOUTH WITH BREAKFAST OR THE FIRST MAIN MEAL OF THE DAY TAKE 1 TABLET BY MOUTH WITH BREAKFAST OR THE FIRST MAIN MEAL OF THE DAY SOLD: 09/29/2020 [facility] Ramipril 10 MG Oral Capsule RAMIPRIL 06/20/2020 12:00:00 AM EST capsu le 90 TAKE ONE CAPSULE BY MOUTH ONCE A DAY TAKE ONE CAPSULE BY MOUTH ONCE A DAY SOLD: 06/30/2020 [facility] 20 mEq 06/20/2020 12:00:00 AM EST tablet,ER particles/cry stals 90 TAKE ONE TABLET BY MOUTH ONCE A DAY TAKE ONE TABLET BY MOUTH ONCE A DAY SOLD: 06/30/2020 [facility] 20 mEq 06/20/2020 12:00:00 AM EST tablet,ER particles/cry stals 90 TAKE ONE TABLET BY MOUTH ONCE A DAY TAKE ONE TABLET BY MOUTH ONCE A DAY SOLD: 09/29/2020 [facility] Escitalopram 20 MG Oral Tablet ESCITALOPRAM OXALATE 06/20/2020 1 2:00:00 AM EST tablet 90 TAKE ONE TABLET BY MOUTH ONCE A DAY TAKE ONE TABLET BY MOUTH ONCE A DAY SOLD: 06/30/2020 [facility] glimepiride 1 MG Oral Tablet GLIMEPIRIDE 06/20/2020 12:00:00 AM EST ta blet 90 TAKE 1 TABLET BY MOUTH WITH BREAKFAST OR THE FIRST MAIN MEAL OF THE DAY TAKE 1 TABLET BY MOUTH WITH BREAKFAST OR THE FIRST MAIN MEAL OF THE DAY SOLD: 06/30/2020 [facility] 40 mg 06/20/2020 12:00:00 AM EST capsule,delayed release (DR/EC) 90 TAKE ONE CAPSULE BY MOUTH ONCE A DAY TAKE ONE CAPSULE BY MOUTH ONCE A DAY SOLD: 09/29/2020 [facility] 125 mcg 06/20/2020 12:00:00 AM EST tablet 90 TAKE ONE TABLET BY MOUTH ON AN EMPTY STOMACH IN THE MORNING ONCE A DAY TAKE ONE TABLET BY MOUTH ON AN EMPTY STOMACH IN THE MORNING ONCE A DAY SOLD: 06/30/2020 [facility] Ramipril 10 MG Oral Capsule RAMIPRIL 06/20/2020 12:00:00 AM EST capsu le 90 TAKE ONE CAPSULE BY MOUTH ONCE A DAY TAKE ONE CAPSULE BY MOUTH ONCE A DAY SOLD: 09/29/2020 [facility] 25 mg 06/20/2020 12:00:00 AM EST tablet 90 TAKE ONE TABLET BY MOUTH IN THE MORNING WITH FOOD ONCE A DAY TAKE ONE TABLET BY MOUTH IN THE MORNING WITH FOOD ONCE A DAY SOLD: 06/30/2020 [facility] Metformin hydrochloride 1000 MG Oral Tablet 1,000 mg METFORM IN HCL 06/19/2020 12:00:00 AM EST tablet 90 TAKE ONE TABLET BY MOUTH WITH MEALS ONCE A DAY TAKE ONE TABLET BY MOUTH WITH MEALS ONCE A DAY SOLD: 06/30/2020 [facility] 1,000 mg 06/19/2020 12:00:00 AM EST tablet 90 TAKE ONE TABLET BY MOUTH WITH MEALS ONCE A DAY TAKE ONE TABLET BY MOUTH WITH MEALS ONCE A DAY SOLD: 0 09/29/2020 [facility] 2 mg 06/10/2020 12:00:00 AM EST tablet 9 TAKE ONE TABLET BY MOUTH THREE TIMES A DAY NEEDED FOR ANXIETY MAXIMUM DAILY DOSE = 3 TABLETS TAKE ONE TABLET BY MOUTH THREE TIMES A DAY NEEDED FOR ANXIETY MAXIMUM DAILY DOSE = 3 TABLETS SOLD: 06/10/2020 [facility] 5 % 06/10/2020 12:00:00 AM EST adhesive patch,medicate d 5 APPLY 1 PATCH TO AREA OF PAIN DAILY, REMOVE AFTER 12 HOURS APPLY 1 PATCH TO AREA OF PAIN DAILY, REMOVE AFTER 12 HOURS SOLD: 06/10/2020 [facility] 0.75 mg/0.5 mL 05/30/2020 12:00:00 AM EST pen injector 2 INJECT CONTENTS OF 1 PEN UNDER THE SKIN EVERY WEEK INJECT CONTENTS OF 1 PEN UNDER THE SKIN EVERY WEEK SOLD: 05/31/2020 [facility] 0.75 mg/0.5 mL 05/30/2020 12:00:00 AM EST pen injector 2 INJECT CONTENTS OF 1 PEN UNDER THE SKIN EVERY WEEK INJECT CONTENTS OF 1 PEN UNDER THE SKIN EVERY WEEK SOLD: 07/13/2020 [facility] 31 gauge x 1/4" 05/30/2020 [...] active NovoLIN R FlexPen 100 UNIT/ML eCW1 ([facility]) NovoLIN R FlexPen 100 UNIT/ML NovoLIN R FlexPen 100 UNIT/ML 05/29/2020 12:00:00 AM EST active NovoLIN R FlexPen 100 UNIT/ML eCW1 ([facility]) NovoLIN R FlexPen 100 UNIT/ML NovoLIN R FlexPen 100 UNIT/ML 05/29/2020 12:00:00 AM EST active NovoLIN R FlexPen 100 UNIT/ML eCW1 ([facility]) NovoLIN R FlexPen 100 UNIT/ML NovoLIN R FlexPen 100 UNIT/ML 05/29/2020 12:00:00 AM EST active NovoLIN R FlexPen 100 UNIT/ML eCW1 ([facility]) NovoLIN R FlexPen 100 UNIT/ML NovoLIN R FlexPen 100 UNIT/ML 05/29/2020 12:00:00 AM EST active NovoLIN R FlexPen 100 UNIT/ML eCW1 ([facility]) NovoLIN R FlexPen 100 UNIT/ML NovoLIN R FlexPen 100 UNIT/ML 05/29/2020 12:00:00 AM EST active NovoLIN R FlexPen 100 UNIT/ML eCW1 ([facility]) NovoLIN R FlexPen 100 UNIT/ML NovoLIN R FlexPen 100 UNIT/ML 05/29/2020 12:00:00 AM EST active NovoLIN R FlexPen 100 UNIT/ML eCW1 ([facility]) NovoLIN R FlexPen 100 UNIT/ML NovoLIN R FlexPen 100 UNIT/ML 05/29/2020 12:00:00 AM EST active NovoLIN R FlexPen 100 UNIT/ML eCW1 ([facility]) NovoLIN R FlexPen 100 UNIT/ML NovoLIN R FlexPen 100 UNIT/ML 05/29/2020 12:00:00 AM EST active NovoLIN R FlexPen 100 UNIT/ML eCW1 ([facility]) NovoLIN R FlexPen 100 UNIT/ML NovoLIN R FlexPen 100 UNIT/ML 05/29/2020 12:00:00 AM EST active NovoLIN R FlexPen 100 UNIT/ML eCW1 ([facility]) NovoLIN R FlexPen 100 UNIT/ML NovoLIN R FlexPen 100 UNIT/ML 05/29/2020 12:00:00 AM EST active NovoLIN R FlexPen 100 UNIT/ML eCW1 ([facility]) NovoLIN R FlexPen 100 UNIT/ML NovoLIN R FlexPen 100 UNIT/ML 05/29/2020 12:00:00 AM EST active NovoLIN R FlexPen 100 UNIT/ML eCW1 ([facility]) NovoLIN R FlexPen 100 UNIT/ML NovoLIN R FlexPen 100 UNIT/ML 05/29/2020 12:00:00 AM EST active NovoLIN R FlexPen 100 UNIT/ML eCW1 ([facility]) NovoLIN R FlexPen 100 UNIT/ML NovoLIN R FlexPen 100 UNIT/ML 05/29/2020 12:00:00 AM EST active NovoLIN R FlexPen 100 UNIT/ML eCW1 ([facility]) NovoLIN R FlexPen 100 UNIT/ML NovoLIN R FlexPen 100 UNIT/ML 05/29/2020 12:00:00 AM EST active NovoLIN R FlexPen 100 UNIT/ML eCW1 ([facility]) NovoLIN R FlexPen 100 UNIT/ML NovoLIN R FlexPen 100 UNIT/ML 05/29/2020 12:00:00 AM EST active NovoLIN R FlexPen 100 UNIT/ML eCW1 ([facility]) NovoLIN R FlexPen 100 UNIT/ML NovoLIN R FlexPen 100 UNIT/ML 05/29/2020 12:00:00 AM EST active NovoLIN R FlexPen 100 UNIT/ML eCW1 ([facility]) NovoLIN R FlexPen 100 UNIT/ML NovoLIN R FlexPen 100 UNIT/ML 05/29/2020 12:00:00 AM EST active NovoLIN R FlexPen 100 UNIT/ML eCW1 ([facility]) NovoLIN R FlexPen 100 UNIT/ML NovoLIN R FlexPen 100 UNIT/ML 05/29/2020 12:00:00 AM EST active NovoLIN R FlexPen 100 UNIT/ML eCW1 ([facility]) NovoLIN R FlexPen 100 UNIT/ML NovoLIN R FlexPen 100 UNIT/ML 05/29/2020 12:00:00 AM EST active NovoLIN R FlexPen 100 UNIT/ML eCW1 ([facility]) NovoLIN R FlexPen 100 UNIT/ML NovoLIN R FlexPen 100 UNIT/ML 05/29/2020 12:00:00 AM EST active NovoLIN R FlexPen 100 UNIT/ML eCW1 ([facility]) NovoLIN R FlexPen 100 UNIT/ML NovoLIN R FlexPen 100 UNIT/ML 05/29/2020 12:00:00 AM EST active NovoLIN R FlexPen 100 UNIT/ML eCW1 ([facility]) NovoLIN R FlexPen 100 UNIT/ML NovoLIN R FlexPen 100 UNIT/ML 05/29/2020 12:00:00 AM EST active NovoLIN R FlexPen 100 UNIT/ML eCW1 ([facility]) NovoLIN R FlexPen 100 UNIT/ML NovoLIN R FlexPen 100 UNIT/ML 05/29/2020 12:00:00 AM EST active NovoLIN R FlexPen 100 UNIT/ML eCW1 ([facility]) 50 mg 03/14/2020 12:00:00 AM EST tablet 90 TAKE ONE TABLET BY MOUTH AT BEDTIME TAKE ONE TABLET BY MOUTH AT BEDTIME SOLD: 06/30/2020 [facility] 300 unit/mL (1.5 mL) 03/14/2020 12:00:00 AM EST insulin pen 13 INJECT 85 UNITS UNDER THE SKIN AT BEDTIME INJECT 85 UNITS UNDER THE SKIN AT BEDTIME SOLD: 06/30/2020 [facility] 50 mg 03/14/2020 12:00:00 AM EST tablet 90 TAKE ONE TABLET BY MOUTH AT BEDTIME TAKE ONE TABLET BY MOUTH AT BEDTIME SOLD: 03/21/2020 [facility] 300 unit/mL (1.5 mL) 03/14/2020 12:00:00 AM EST insulin pen 13 INJECT 85 UNITS UNDER THE SKIN AT BEDTIME INJECT 85 UNITS UNDER THE SKIN AT BEDTIME SOLD: 05/13/2020 [facility] 300 unit/mL (1.5 mL) 03/14/2020 12:00:00 AM EST insulin pen 13 INJECT 85 UNITS UNDER THE SKIN AT BEDTIME INJECT 85 UNITS UNDER THE SKIN AT BEDTIME SOLD: 03/21/2020 [facility] 875 mg 03/14/2020 12:00:00 AM [...] TWICE A DAY SOLD: 03/21/2020 [facility] 500 mg 12/15/2019 12:00:00 AM EDT tablet 180 TAKE ONE TABLET BY MOUTH TWICE A DAY TAKE ONE TABLET BY MOUTH TWICE A DAY SOLD: 12/18/2019 [facility] 500 mg 12/15/2019 12:00:00 AM EDT tablet 180 TAKE ONE TABLET BY MOUTH TWICE A DAY TAKE ONE TABLET BY MOUTH TWICE A DAY SOLD: 06/30/2020 [facility] 500 mg 12/15/2019 12:00:00 AM EDT tablet 180 TAKE ONE TABLET BY MOUTH TWICE A DAY TAKE ONE TABLET BY MOUTH TWICE A DAY SOLD: 09/29/2020 [facility] atorvastatin 40 MG Oral Tablet ATORVASTATIN CALCIUM 12/14/2019 1 2:00:00 AM EDT tablet 90 TAKE ONE TABLET BY MOUTH EVERY D AY TAKE ONE TABLET BY MOUTH EVERY DAY SOLD: 03/21/2020 [facility] atorvastatin 40 MG Oral Tablet ATORVASTATIN CALCIUM 12/14/2019 1 2:00:00 AM EDT tablet 90 TAKE ONE TABLET BY MOUTH EVERY D AY TAKE ONE TABLET BY MOUTH EVERY DAY SOLD: 09/29/2020 [facility] atorvastatin 40 MG Oral Tablet ATORVASTATIN CALCIUM 12/14/2019 1 2:00:00 AM EDT tablet 90 TAKE ONE TABLET BY MOUTH EVERY D AY TAKE ONE TABLET BY MOUTH EVERY DAY SOLD: 06/30/2020 [facility] 40 mg 12/14/2019 12:00:00 [...] OF THE DAY SOLD: 12/18/2019 [facility] glimepiride 1 MG Oral Tablet GLIMEPIRIDE 12/13/2019 12:00:00 AM EDT ta blet 90 TAKE ONE TABLET BY MOUTH EVERY DAY WITH FIRST MAIN MEAL OF THE DAY TAKE ONE TABLET BY MOUTH EVERY DAY WITH FIRST MAIN MEAL OF THE DAY SOLD: 03/21/2020 [facility] 20 mEq 12/13/2019 12:00:00 AM EDT tablet,ER particles/cry stals 90 TAKE ONE TABLET BY MOUTH EVERY DAY TAKE ONE TABLET BY MOUTH EVERY DAY SOLD: 12/18/2019 [facility] 40 mg 12/13/2019 12:00:00 AM EDT capsule,delayed release (DR/EC) 90 TAKE ONE CAPSULE BY MOUTH EVERY DAY TAKE ONE CAPSULE BY MOUTH EVERY DAY SOLD: 12/18/2019 [facility] 25 mg 12/13/2019 12:00:00 AM EDT tablet 90 TAKE ONE TABLET BY MOUTH EVERY MORNING WITH FOOD TAKE ONE TABLET BY MOUTH EVERY MORNING WITH FOOD SOLD: 03/21/2020 [facility] 10 mg 12/13/2019 12:00:00 AM EDT capsule 90 TAKE ONE CAPSULE BY MOUTH EVERY DAY TAKE ONE CAPSULE BY MOUTH EVERY DAY SOLD: 12/18/2019 [facility] 40 mg 12/13/2019 [...] EMPTY STOMACH SOLD: 12/18/2019 [facility] Ramipril 10 MG Oral Capsule RAMIPRIL 12/13/2019 [...] EMPTY STOMACH SOLD: 03/21/2020 [facility] Escitalopram 20 MG Oral Tablet ESCITALOPRAM OXALATE 12/13/2019 1 2:00:00 AM EDT tablet 90 TAKE ONE TABLET BY MOUTH EVERY D AY TAKE ONE TABLET BY MOUTH EVERY DAY SOLD: 12/18/2019 [facility] 1,000 mg 12/13/2019 12:00:00 AM EDT tablet 90 TAKE ONE TABLET BY MOUTH EVERY DAY WITH MEALS TAKE ONE TABLET BY MOUTH EVERY DAY WITH MEALS SOLD: 12/18/19 20 [facility] 25 mg 12/13/2019 12:00:00 AM EDT tablet 90 TAKE ONE TABLET BY MOUTH EVERY MORNING WITH FOOD TAKE ONE TABLET BY MOUTH EVERY MORNING WITH FOOD SOLD: 12/18/2019 [facility] 20 mEq 12/13/2019 [...] EVERY DAY SOLD: 03/21/2020 [facility] Metformin hydrochloride 1000 MG Oral Tablet 1,000 mg METFORM IN HCL 12/13/2019 12:00:00 AM EDT tablet 90 TAKE ONE TABLET BY MOUTH EVERY DAY WITH MEALS TAKE ONE TABLET BY MOUTH EVERY DAY WITH MEALS SOLD: 03/21/2020 [facility] 50 mg 09/09/2019 12:00:00 AM [...] BEFORE BEDTIME SOLD: 12/18/2019 [facility] Insurance Providers Payer name Policy type / Coverage type Policy ID Covered libertarian ID Covered libertarian's relationship to arroyo Policy Arroyo Plan Information MEDICARE COMPLETE [id number] SP [id number] MEDICARE COMPLETE [id number] SP [id number] MEDICARE COMPLETE [id number] SP [id number] MEDICARE COMPLETE [id number] SP [id number] MEDICARE [id number] SP [id number] A MEDICARE COMPLETE [id number] SP [id number] [facility] [id number] SP [id number] MEDICARE COMPLETE [id number] SP [id number] ANS-Medicare Part B [id number] ANS-Medicare Part B [id number] [facility]-Medicaid [id number] ANS-Medicare Part B [id number] ANS-Medicare Part B [id number] ANSI-Medicaid [id number] ANSI-Medicare Part B [id number] ANSI-Medicare Part B [id number] ANSI-Medicaid [id number] ANSI-Medicare Part B [id number] ANSI-Medicare Part B [id number] ANSI-Medicare Part B [id number] ANSI-Medicare Part B [id number] ANSI-Medicaid [id number] ANSI-Medicare Part B [id number] ANSI-Medicare Part B [id number] ANSI-Medicaid [id number] ANSI-Medicare Part B [id number] ANSI-Medicare Part B [id number] ANSI-Medicare Part B [id number] ANSI-Medicare Part B [id number] ANSI-Medicare Part B [id number] ANSI-Medicare Part B [id number] ANSI-Medicaid [id number] ANSI-Medicare Part B [id number] ANSI-Medicare Part B [id number] ANSI-Medicare Part B [id number] ANSI-Medicaid [id number] ANSI-Medicare Part B [id number] ANSI-Medicaid [id number] ANSI-Medicare Part B [id number] ANSI-Medicare Part B [id number] ANSI-Medicare Part B [id number] ANSI-Medicaid [id number] ANSI-Medicare Part B [id number] ANSI-Medicare Part B [id number] ANSI-Medicaid [id number] ANSI-Medicaid [id number] ANSI-Medicare Part B [id number] ANSI-Medicare Part B [id number] ANSI-Medicare Part B [id number] ANSI-Medicare Part B [id number] ANSI-Medicaid [id number] MEDICAID [id number] SP [id number] ANSI-Medicare Part B [id number] ANSI-Medicaid [id number] ANSI-Medicare Part B [id number] ANSI-Medicare Part B [id number] ANSI-Medicaid [id number] ANSI-Medicare Part B [id number] ANSI-Medicare Part B [id number] ANSI-Medicaid [id number] ANSI-Medicare Part B [id number] ANSI-Medicare Part B [id number] ANSI-Medicare Part B [id number] ANSI-Medicaid [id number] ANSI-Medicare Part B [id number] ANSI-Medicare Part B [id number] ANSI-Medicaid [id number] ANSI-Medicaid [id number] ANSI-Medicare Part B [id number] ANSI-Medicare Part B [id number] MEDICARE [id number] SP [id number] A [facility] Medicare Commercial [id number] Self [id number] MEDICARE C [id number] S [id number] [facility] [id number] Self [id number] MEDICARE COMPLETE [id number] SP [id number] [facility] [id number] Self MEDICAID [id number] SP [id number] BLUE CROSS COLE PLAN [id number] SP [id number] HMO BLUE [id number] SP [id number] MEDICAID GME W [id number] G BLUE CHOICE OPTION O [id number] S [id number] PROGRESSIVE NO FAULT O [id number] S [id number] PROGRESSIVE NO FAULT O 0 S 0 PROGRESSIVE CO NO FAULT [id number] SP [id number] SELF PAY UNAVAILABLE SP UNAVAILA BLE BLUE CROSS BLUE SHIELD-O/P [id number] BLUE CROSS BLUE SHIELD-CLINIC [id number] HMO BLUE P [id number] S [id number] EXCELLUS BCBS P [id number] S [id number] [place] [id number] SP [id number] G AETNA MEDICARE [id number] SP MEBSM W[place]J UNHC COMMUNITY PLAN MCDO [id number] SP [id number] AETNA MEDICARE O [id number] S MEBSM W[place] MEDICARE COMPLETE-UHC O [id number] S [id number] MEDICARE COMPLETE [id number] SP [id number] Problems, Conditions, and Diagnoses Code Display Name Description Problem Type Effective Dates Data Source(s) E03.9 [id number] Acquired hypothyroidism Problem 12/12/2020 1 2:00:00 AM EDT eCW1 ([facility]) G89.29 [id number] Other chronic pain Problem 11/15/2020 12:00: 00 AM EDT eCW1 ([facility]) E11.65 [id number] Type 2 diabetes mellitus with hyperglycem ia Problem 05/29/2020 12:00:00 AM EST eCW1 ([facility]) Z79.4 [id number] intermediate (current) use of insulin Proble m 05/29/2020 12:00:00 AM EST eCW1 ([facility]) Surgeries/Procedures Procedure Description Date Indications Data Source(s) OFFICE OUTPATIENT NEW 45 MINUTES 12/11/2020 12:00:00 A M EDT MEDENT ([facility] ) PNEUMOCOCCAL CONJ VACCINE 13 VALENT IM 05/23/2020 12:0 0:00 AM EST eCW1 ([facility]) Results ID Date Data Source C-PEPTIDE 05/29/2020 12:00:00 AM EST eCW1 ([facility]) Name Value Range Interpretation Code Description Data Anya rce(s) Supporting Document(s) 5.1 1.1-4.4 C-PEPTIDE eCW1 ([facility]) ID Date Data Source LIPID PANEL (CARDIAC RISK) 05/23/2020 12:00:00 AM EST eCW1 ( [facility]) Name Value Range Interpretation Code Description Data Anya rce(s) Supporting Document(s) Triglyceride [Mass/volume] in Serum or Plasma by calculation 252 <150 TRIGLYCERIDES LEVEL eCW1 ([facility]) Cholesterol [Moles/volume] in Serum or Plasma 165 <200 CHOLESTEROL LEVEL eC1 ([facility]) Cholesterol in HDL [Moles/volume] in Serum or Plasma 39 >40 HDL CHOLESTEROL eCW1 ([facility]) 4.230 <5 CHOLESTEROL RISK RATIO eCW1 ([facility]) 126 NON-HDL-C eCW1 ([facility]) Cholesterol in LDL [Mass/volume] in Serum or Plasma by calculation 76 <100 LDL CHOLESTEROL eCW1 ([facility]) ID Date Data Source TSH 05/23/2020 12:00:00 AM EST eCW1 ([facility]) Name Value Range Interpretation Code Description Data Anya rce(s) Supporting Document(s) 0.886 0.358-3.740 THYROID STIMULATING HORM ONE eCW1 ([facility]) ID Date Data Source [id number] 05/23/2020 12:00:00 AM EST eCW1 ([facility]) Name Value Range Interpretation Code Description Data Anya rce(s) Supporting Document(s) Microalbumin/Creatinine [Mass Ratio] in Urine 46.8 CREATININE, URINE eCW1 ([facility]) Albumin/Creatinine [Mass Ratio] in Urine 9.4 MALB URINE SIEMENS eCW1 ([facility]) Microalbumin/Creatinine [Ratio] in Urine 20.0 0.0-30.0 BRAULIO/CREAT RATIO eCW1 ([facility]) ID Date Data Source MAGNESIUM LEVEL 05/23/2020 12:00:00 AM EST eCW1 ([facility]) Name Value Range Interpretation Code Description Data Anya rce(s) Supporting Document(s) 1.5 1.8-2.4 MAGNESIUM LEVEL eCW1 ([facility]) ID Date Data Source VITAMIN D 25-HYDROXY 05/23/2020 12:00:00 AM EST eCW1 ([facility]) Name Value Range Interpretation Code Description Data Anya rce(s) Supporting Document(s) 33.1 30.0-100.0 TOTAL 25(OH) VITAMIN D eC W1 ([facility]) ID Date Data Source [id number] 05/23/2020 12:00:00 AM EST eCW1 ([facility]) Name Value Range Interpretation Code Description Data Anya rce(s) Supporting Document(s) Hemoglobin A1c/Hemoglobin.total in Blood 11.4 HEMOGLOBIN A1c eCW1 ([facility]) ID Date Data Source Comprehensive Metabolic Profile (CMP) 05/23/2020 12:00:00 AM EST eCW1 ([facility]) Name Value Range Interpretation Code Description Data Anya rce(s) Supporting Document(s) 266 70-100 GLUCOSE, FASTING eCW1 ([facility]) 0.85 0.55-1.30 CREATININE FOR GFR eCW1 ([facility]) > 60.0 >39 GLOMERULAR FILTRATION RATE eCW 1 ([facility]) 13 7-18 BLOOD UREA NITROGEN eCW1 ([facility]) 97 98-107 CHLORIDE LEVEL eCW1 ([facility]) 4.3 3.5-5.1 POTASSIUM SERUM eCW1 ([facility]) 138 136-145 SODIUM LEVEL eCW1 ([facility]) 35 21-32 CARBON DIOXIDE LEVEL eCW1 ([facility]) 31 12-78 ALT/SGPT eCW1 ([facility]) 22 7-37 AST/SGOT eCW1 ([facility]) 159 45-117 ALKALINE PHOSPHATASE eCW1 ([facility]) 9.9 8.8-10.2 CALCIUM LEVEL eCW1 ([facility]) 3.6 3.2-5.2 ALBUMIN eCW1 ([facility]) 7.1 6.4-8.2 TOTAL PROTEIN eCW1 ([facility]) 1.2 0.2-1.0 BILIRUBIN,TOTAL eCW1 ([facility]) 1.0 1.2-2.2 ALBUMIN/GLOBULIN RATIO eCW1 ([facility]) ID Date Data Source CBC with Differential 05/23/2020 12:00:00 AM EST eCW1 ([facility]) Name Value Range Interpretation Code Description Data Anya rce(s) Supporting Document(s) 8.7 4.0-10.0 WHITE BLOOD COUNT eCW1 ([facility]) 5.23 4.00-5.40 RED BLOOD COUNT eCW1 ([facility]) 14.7 12.0-15.5 HEMOGLOBIN eCW1 ([facility]) 87.2 80.0-96.0 MEAN CORPUSCULAR VOLUME e CW1 ([facility]) 45.6 36.0-47.0 HEMATOCRIT eCW1 ([facility]) 200 150-450 PLATELET COUNT, AUTOMATED eCW1 ([facility]) 13.0 11.5-14.5 RED CELL DISTRIBUTION WID TH eCW1 ([facility]) 28.1 27.0-33.0 MEAN CORPUSCULAR HEMOGLOB IN eCW1 ([facility]) 32.2 32.0-36.5 MEAN CORPUSCULAR HGB CONC eCW1 ([facility]) 48.0 36.0-66.0 NEUTROPHILS % eCW1 ([facility]) 2.7 0.0-3.0 EOS % eCW1 ([facility]) 8.2 0.0-5.0 MONO % eCW1 ([facility]) 40.3 24.0-44.0 LYMPH % eCW1 ([facility]) 4.2 1.5-8.5 NEUTROPHILS # eCW1 ([facility]) 0.6 0.0-1.0 BASO % eCW1 ([facility]) 3.5 1.5-5.0 LYMPH # eCW1 ([facility]) 0.1 0.0-0.2 BASO # eCW1 ([facility]) 0.7 0.0-0.8 MONO # eCW1 ([facility]) 0.2 0.0-0.5 EOS # eCW1 ([facility]) Procedure Social History Code Duration Value Status Description Data Source(s ) Smoking 12/12/2020 12:00:00 AM EDT Never Smoker completed Never S moker eCW1 ([facility]) Smoking 11/15/2020 12:00:00 AM EDT Never Smoker completed Never S moker eCW1 ([facility]) Smoking 11/15/2020 12:00:00 AM EDT Never Smoker completed Never S moker eCW1 ([facility]) Smoking 07/25/2020 12:00:00 AM EDT Never Smoker completed Never S moker eCW1 ([facility]) Smoking 07/25/2020 12:00:00 AM EDT Never Smoker completed Never S moker eCW1 ([facility]) Smoking 07/25/2020 12:00:00 AM EDT Never Smoker completed Never S moker eCW1 ([facility]) Smoking 07/25/2020 12:00:00 AM EDT Never Smoker completed Never S moker eCW1 ([facility]) Smoking 07/25/2020 12:00:00 AM EDT Never Smoker completed Never S moker eCW1 ([facility]) Smoking 07/25/2020 12:00:00 AM EDT Never Smoker completed Never S moker eCW1 ([facility]) Smoking 07/25/2020 12:00:00 AM EDT Never Smoker completed Never S moker eCW1 ([facility]) Smoking 07/25/2020 12:00:00 AM EDT Never Smoker completed Never S moker eCW1 ([facility]) Smoking 06/20/2020 12:00:00 AM EST Never Smoker completed Never S moker eCW1 ([facility]) Smoking 06/20/2020 12:00:00 AM EST Never Smoker completed Never S moker eCW1 ([facility]) Smoking 06/20/2020 12:00:00 AM EST Never Smoker completed Never S moker eCW1 ([facility]) Smoking 06/20/2020 12:00:00 AM EST Never Smoker completed Never S moker eCW1 ([facility]) Smoking 06/20/2020 12:00:00 AM EST Never Smoker completed Never S moker eCW1 ([facility]) Smoking 06/20/2020 12:00:00 AM EST Never Smoker completed Never S moker eCW1 ([facility]) Smoking 06/20/2020 12:00:00 AM EST Never Smoker completed Never S moker eCW1 ([facility]) Smoking 06/20/2020 12:00:00 AM EST Never Smoker completed Never S moker eCW1 ([facility]) Smoking 06/20/2020 12:00:00 AM EST Never Smoker completed Never S moker eCW1 ([facility]) Smoking 05/29/2020 12:00:00 AM EST Never Smoker completed Never S moker eCW1 ([facility]) Smoking 05/29/2020 12:00:00 AM EST Never Smoker completed Never S moker eCW1 ([facility]) Smoking 05/29/2020 12:00:00 AM EST Never Smoker completed Never S moker eCW1 ([facility]) Smoking 05/29/2020 12:00:00 AM EST Never Smoker completed Never S moker eCW1 ([facility]) Smoking 05/23/2020 12:00:00 AM EST Never Smoker completed Never S moker eCW1 ([facility]) Vital Signs ID Date Data Source UNK Name Value Range Interpretation Code Description Data Source(s) Body weight 253 [lb_av] 253 [lb_av] eCW1 ([facility]) Body height 61 [in_i] 61 [in_i] eCW1 ([facility]) Body mass index (BMI) [Ratio] 47.80 kg/m2 47.80 kg/m2 eCW1 ([facility]) Heart rate 87 /min 87 /min eCW1 ([facility]) Respiratory rate 18 /min 18 /min eCW1 ([facility]) Body temperature 97.6 [degF] 97.6 [degF] eCW1 ( [facility]) Systolic blood pressure 120 mm[Hg] 120 mm[Hg] e CW1 ([facility]) Diastolic blood pressure 80 mm[Hg] 80 mm[Hg] eCW1 ([facility]) Body temperature 96.0 [degF] 96.0 [degF] MEDENT ([facility]) Body height 61 [in_i] 61 [in_i] MEDENT ([facility]) 5'1" Body weight 248.00 [lb_av] 248.00 [lb_av] MEDEN T ([facility]) Body mass index (BMI) [Ratio] 46.9 kg/m2 46.9 k g/m2 MEDENT ([facility]) Respiratory rate 18 /min 18 /min eCW1 ([facility]) Body temperature 96.3 [degF] 96.3 [degF] eCW1 ( [facility]) Body weight 252.8 [lb_av] 252.8 [lb_av] eCW1 ([facility]) Systolic blood pressure 130 mm[Hg] 130 mm[Hg] e CW1 ([facility]) Diastolic blood pressure 90 mm[Hg] 90 mm[Hg] eCW1 ([facility]) Body height 61 [in_i] 61 [in_i] eCW1 ([facility]) Body mass index (BMI) [Ratio] 47.76 kg/m2 47.76 kg/m2 eCW1 ([facility]) Heart rate 89 /min 89 /min eCW1 ([facility]) Systolic blood pressure 156 mm[Hg] 156 mm[Hg] e CW1 ([facility]) Diastolic blood pressure 76 mm[Hg] 76 mm[Hg] eCW1 ([facility]) Body weight 249 [lb_av] 249 [lb_av] eCW1 ([facility]) Body height 61 [in_i] 61 [in_i] eCW1 ([facility]) Body mass index (BMI) [Ratio] 47.04 kg/m2 47.04 kg/m2 eCW1 ([facility]) Heart rate 80 /min 80 /min eCW1 ([facility]) Respiratory rate 18 /min 18 /min eCW1 ([facility]) Body temperature 96.8 [degF] 96.8 [degF] eCW1 ( [facility]) Body weight 253 [lb_av] 253 [lb_av] eCW1 [place] [facility] Body height 61 [in_i] 61 [in_i] eCW1 ([facility]) Body mass index (BMI) [Ratio] 47.80 kg/m2 47.80 kg/m2 eCW1 ([facility]) Heart rate 87 /min 87 /min eCW1 ([facility]) Respiratory rate 18 /min 18 /min eCW1 ([facility]) Body temperature 97.8 [degF] 97.8 [degF] eCW1 ( [facility]) Systolic blood pressure 130 mm[Hg] 130 mm[Hg] e CW1 ([facility]) Diastolic blood pressure 82 mm[Hg] 82 mm[Hg] eCW1 ([facility]) Body weight 254 [lb_av] 254 [lb_av] eCW1 ([facility]) Body height 61 [in_i] 61 [in_i] eCW1 ([facility]) Body mass index (BMI) [Ratio] 47.99 kg/m2 47.99 kg/m2 eCW1 ([facility]) Heart rate 85 /min 85 /min eCW1 ([facility]) Respiratory rate 18 /min 18 /min eCW1 ([facility]) Body temperature 96.7 [degF] 96.7 [degF] eCW1 ( [facility]) Systolic blood pressure 128 mm[Hg] 128 mm[Hg] e CW1 ([facility]) Diastolic blood pressure 76 mm[Hg] 76 mm[Hg] eCW1 ([facility]) Body weight 253 [lb_av] 253 [lb_av] eCW1 ([facility]) Body height 61 [in_i] 61 [in_i] eCW1 ([facility]) Body mass index (BMI) [Ratio] 47.80 kg/m2 47.80 kg/m2 eCW1 ([facility]) Heart rate 87 /min 87 /min eCW1 ([facility]) Respiratory rate 20 /min 20 /min eCW1 ([facility]) Body temperature 96.2 [degF] 96.2 [degF] eCW1 ( [facility]) Systolic blood pressure 170 mm[Hg] 170 mm[Hg] e CW1 ([facility]) Diastolic blood pressure 100 mm[Hg] 100 mm[Hg] eCW1 ([facility]) Patient Treatment Plan of Care Planned Activity Planned Date Details Description Data Source (s) Nystatin [id number] UNT/ML Topical Cream 12/12/2020 12:00:00 AM EDT eCW1 ([facility]) CPAP Machine 07/25/2020 12:00:00 AM EDT e CW1 ([facility]) CPAP Machine 07/25/2020 12:00:00 AM EDT e CW1 ([facility]) CPAP Machine 07/25/2020 12:00:00 AM EDT e CW1 ([facility]) CPAP Machine 07/25/2020 12:00:00 AM EDT e CW1 ([facility]) CPAP Machine 07/25/2020 12:00:00 AM EDT e CW1 ([facility]) CPAP Machine 07/25/2020 12:00:00 AM EDT e CW1 ([facility]) CPAP Machine 07/25/2020 12:00:00 AM EDT e CW1 ([facility]) CPAP Machine 07/25/2020 12:00:00 AM EDT e CW1 ([facility]) Alcohol Pads 70 % 07/11/2020 12:00:00 AM EDT eCW1 ([facility]) Alcohol Pads 70 % 07/11/2020 12:00:00 AM EDT eCW1 ([facility]) NovoLIN R FlexPen 100 UNIT/ML 05/29/2020 12:00:00 AM EST eCW1 ([facility]) NovoLIN R FlexPen 100 UNIT/ML 05/29/2020 12:00:00 AM EST eCW1 ([facility]) NovoLIN R FlexPen 100 UNIT/ML 05/29/2020 12:00:00 AM EST eCW1 ([facility]) NovoLIN R FlexPen 100 UNIT/ML 05/29/2020 12:00:00 AM EST eCW1 ([facility]) NovoLIN R FlexPen 100 UNIT/ML 05/29/2020 12:00:00 AM EST eCW1 ([facility])
[2021-02-07] MEDS ORDERED: POTASSIUM CHLORIDE 10MEQ SR TABLET PO ONE (20:40)
[2021-02-07 20:41] LABS: BASO # 0.1 10^3/uL (0.0-0.2); BASO % 0.7 % (0.0-1.0); EOS # 0.1 10^3/uL (0.0-0.5); EOS % 1.5 % (0.0-3.0); HEMATOCRIT 48.3 % (36.0-47.0); LYMPH # 3.4 10^3/uL (1.5-5.0); LYMPH % 37.2 % (24.0-44.0); MEAN CORPUSCULAR HEMOGLOBIN 28.3 pg (27.0-33.0); MEAN CORPUSCULAR HGB CONC 33.1 g/dl (32.0-36.5); MEAN CORPUSCULAR VOLUME 85.5 fl (80.0-96.0); MONO # 0.8 10^3/uL (0.0-0.8); MONO % 8.7 % (2.0-8.0); NEUTROPHILS # 4.7 10^3/uL (1.5-8.5); NEUTROPHILS % 51.6 % (36.0-66.0); PLATELET COUNT, AUTOMATED 215 10^3/uL (150-450); RED BLOOD COUNT 5.65 10^6/uL (4.00-5.40); WHITE BLOOD COUNT 9.1 10^3/uL (4.0-10.0)
[2021-02-07 20:59] LABS: HEMOGLOBIN A1c 10.3 %
--- OUTSIDE RECORDS SUMMARY | 2021-02-07 21:04 | CCD ---
Author Author [facility] Organization [facility] Address Unknown Phone Unavailable Care Team Providers Care Social Services Designee Name Role Phone Joni Hinton MD Unavailable [...] is protected by Article 27-F of the [facility] Public [facility] law. If you continue you may have access to information: Regarding HIV / AIDS; Provided by facilities licensed or operated by the [facility] Office of Mental Health; or Provided by the [facility] Office for People With Developmental Disabilities. If such information is present, then the following [facility] mandated warning applies: This information has been [...] law may result in a fine or [place] health [place] sentence or both. A general authorization for the release of medical or other information is NOT sufficient authorization for further disc losure. Family History Family Member Name Family Member Gender Family Member Status Date o f Status Description Data Source(s) Unknown Male Problem MEDENT ([facility]) () Unknown Unknown Problem MEDENT ([facility]) Unknown Unknown Problem MEDENT ([facility]) Unknown Unknown Problem MEDENT ([facility]) Encounters Encounter Providers Location Date Indications Data Source(s ) Office Visit, Est Pt., Level 4 [address] [place] [address] 12/12/2020 12:00:00 AM EDT eCW1 ([facility]) Outpatient Attender: José Hinton MD Physical Therapy 12/11/2020 0 1:45:00 PM EDT MEDENT ([facility]) Unknown [address] [facility] [address] 11/27/2020 12:00:00 AM EDT eCW1 ([facility]) Outpatient [address] [facility] [place] [address] 11/15/2020 12:00:00 AM EDT eCW1 ([facility]) Unknown [address] [facility] [place] [address] 11/07/2020 12:00:00 AM EDT eCW1 ([facility]) Unknown [address] [facility] [place] [address] 10/03/2020 12:00:00 AM EDT eCW1 ([facility]) Unknown [address] [facility] [address] 10/03/2020 12:00:00 AM EDT eCW1 ([facility]) Unknown [address] [facility] [address] 09/18/2020 12:00:00 AM EDT eCW1 ([facility]) Unknown [address] [facility] [address] 08/24/2020 12:00:00 AM EDT eCW1 ([facility]) Unknown [address] [facility] [place] [address] 08/24/2020 12:00:00 AM EDT eCW1 ([facility]) Unknown [address] [facility] [address] 08/08/2020 12:00:00 AM EDT eCW1 ([facility]) Office Visit, Est Pt., Level 4 PC [address] [place] [address] 07/25/2020 12:00:00 AM EDT eCW1 ([facility]) Unknown [address] [facility] [address] 07/13/2020 12:00:00 AM EDT eCW1 ([facility]) Unknown [address] [facility] [place] [address] 07/11/2020 12:00:00 AM EDT eCW1 ([facility]) Office Visit, Est Pt., Level 4 PC [address] [place] [address] 06/20/2020 12:00:00 AM EST eCW1 ([facility]) Unknown [address] [facility] [address] 06/19/2020 12:00:00 AM EST eCW1 ([facility]) Unknown [address] [facility] [address] 06/19/2020 12:00:00 AM EST eCW1 ([facility]) Unknown [address] [facility] [place] [address] 06/19/2020 12:00:00 AM EST eCW1 ([facility]) Unknown [address] [facility] [address] 06/19/2020 12:00:00 AM EST eCW1 ([facility]) Unknown [address] [facility] [place] [address] 06/19/2020 12:00:00 AM EST eCW1 ([facility]) Unknown [address] [facility] [place] [address] 06/19/2020 12:00:00 AM EST eCW1 ([facility]) Unknown [address] [facility] [address] 06/07/2020 12:00:00 AM EST eCW1 ([facility]) Unknown [address] [facility] [address] 06/01/2020 12:00:00 AM EST eCW1 ([facility]) Office Visit, Est Pt., Level 4 PC [address] [place] [address] 05/29/2020 12:00:00 AM EST eCW1 ([facility]) Unknown [address] [facility] [address] 05/24/2020 12:00:00 AM EST eCW1 ([facility]) Outpatient [address] [facility] [address] 05/23/2020 12:00:00 AM EST eCW1 ([facility]) Unknown [address] [facility] [address] 05/12/2020 12:00:00 AM EST eCW1 ([facility]) Unknown [address] [facility] [address] 02/10/2020 12:00:00 AM EDT eCW1 ([facility]) Immunizations Vaccine Date Status Description Data Source(s) COVID-19 VACCINE Moderna 08/15/2020 12:00:00 AM EDT completed [facility] Vaccine Series Complete: YESThis Data wa s Submitted to [facility] Via [facility]. COVID-19 VACC,MRNA(MODERNA)/PF 08/15/2020 12:00:00 AM EDT completed [facility] COVID-19 dose #1 given elsewhere Unspecified 06/30/2020 04:1 8:00 PM EST completed eCW1 ([facility]) COVID-19 dose #1 given elsewhere Unspecified 06/30/2020 04:1 8:00 PM EST completed eCW1 ([facility]) COVID-19 dose #1 given elsewhere Unspecified 06/30/2020 04:1 8:00 PM EST completed eCW1 ([facility]) COVID-19 dose #1 given elsewhere Unspecified 06/30/2020 04:1 8:00 PM EST completed eCW1 ([facility]) COVID-19 dose #1 given elsewhere Unspecified 06/30/2020 04:1 8:00 PM EST completed eCW1 ([facility]) COVID-19 dose #1 given elsewhere Unspecified 06/30/2020 04:1 8:00 PM EST completed eCW1 ([facility]) COVID-19 dose #1 given elsewhere Unspecified 06/30/2020 04:1 8:00 PM EST completed eCW1 ([facility]) COVID-19 dose #1 given elsewhere Unspecified 06/30/2020 04:1 8:00 PM EST completed eCW1 ([facility]) COVID-19 dose #1 given elsewhere Unspecified 06/30/2020 04:1 8:00 PM EST completed eCW1 ([facility]) COVID-19 dose #1 given elsewhere Unspecified 06/30/2020 04:1 8:00 PM EST completed eCW1 ([facility]) COVID-19 dose #1 given elsewhere Unspecified 06/30/2020 04:1 8:00 PM EST completed eCW1 ([facility]) COVID-19 VACCINE Moderna 06/30/2020 12:00:00 AM EST completed [facility] Vaccine Series Complete: NOThis Data was Submitted to [facility] Via [facility]. COVID-19 VACCINE, MRNA-1273, LNP-S (MODERNA)/PF 06/30/2020 1 2:00:00 AM EST completed [facility] Pneumococcal conjugate PCV 13 05/23/2020 11:52:00 AM EST completed eCW1 ([facility]) Pneumococcal conjugate PCV 13 05/23/2020 11:52:00 AM EST completed eCW1 ([facility]) Pneumococcal conjugate PCV 13 05/23/2020 11:52:00 AM EST completed eCW1 ([facility]) Pneumococcal conjugate PCV 13 05/23/2020 11:52:00 AM EST completed eCW1 ([facility]) Pneumococcal conjugate PCV 13 05/23/2020 11:52:00 AM EST completed eCW1 ([facility]) Pneumococcal conjugate PCV 13 05/23/2020 11:52:00 AM EST completed eCW1 ([facility]) Pneumococcal conjugate PCV 13 05/23/2020 11:52:00 AM EST completed eCW1 ([facility]) Pneumococcal conjugate PCV 13 05/23/2020 11:52:00 AM EST completed eCW1 ([facility]) Pneumococcal conjugate PCV 13 05/23/2020 11:52:00 AM EST completed eCW1 ([facility]) Pneumococcal conjugate PCV 13 05/23/2020 11:52:00 AM EST completed eCW1 ([facility]) Pneumococcal conjugate PCV 13 05/23/2020 11:52:00 AM EST completed eCW1 ([facility]) Pneumococcal conjugate PCV 13 05/23/2020 11:52:00 AM EST completed eCW1 ([facility]) Pneumococcal conjugate PCV 13 05/23/2020 11:52:00 AM EST completed eCW1 ([facility]) Pneumococcal conjugate PCV 13 05/23/2020 11:52:00 AM EST completed eCW1 ([facility]) Pneumococcal conjugate PCV 13 05/23/2020 11:52:00 AM EST completed eCW1 ([facility]) Pneumococcal conjugate PCV 13 05/23/2020 11:52:00 AM EST completed eCW1 ([facility]) Pneumococcal conjugate PCV 13 05/23/2020 11:52:00 AM EST completed eCW1 ([facility]) Pneumococcal conjugate PCV 13 05/23/2020 11:52:00 AM EST completed eCW1 ([facility]) Pneumococcal conjugate PCV 13 05/23/2020 11:52:00 AM EST completed eCW1 ([facility]) Pneumococcal conjugate PCV 13 05/23/2020 11:52:00 AM EST completed eCW1 ([facility]) Pneumococcal conjugate PCV 13 05/23/2020 11:52:00 AM EST completed eCW1 ([facility]) Pneumococcal conjugate PCV 13 05/23/2020 11:52:00 AM EST completed eCW1 ([facility]) Pneumococcal conjugate PCV 13 05/23/2020 11:52:00 AM EST completed eCW1 ([facility]) Pneumococcal conjugate PCV 13 05/23/2020 11:52:00 AM EST completed eCW1 ([facility]) Pneumococcal conjugate PCV 13 05/23/2020 11:52:00 AM EST completed eCW1 ([facility]) INFLUENZA VACCINE QUADRIVALENT 2020- (65 YR UP)/MF59 [...] ONCE WEEKLY SOLD: 01/04/2021 [facility] Nystatin 795194 UNT/ML Topical Cream Nystatin 684149 U NIT/GM Nystatin 593680 UNIT/GM 12/12/2020 12:00:00 AM EDT 1.0 {application} active Nystatin 133164 UNIT/GM eCW1 ([facility]) 1.5 mg/0.5 mL 12/12/2020 12:00:00 AM EDT pen injector 2 INJECT 1 PEN UNDER THE SKIN ONCE WEEKLY INJECT 1 PEN UNDER THE SKIN ONCE WEEKLY SOLD: 12/12/2020 [facility] Cyclobenzaprine hydrochloride 10 MG Oral Tablet Cyclobenzapr ine HCL 12/11/2020 12:00:00 AM EDT active M EDYAMILE ([facility] ) Amoxicillin 875 MG / [...] EDT activ e CPAP Machine eCW1 ([facility]) CPAP Machine UNK 07/25/2020 12:00:00 AM EDT activ e CPAP Machine eCW1 ([facility]) CPAP Machine UNK 07/25/2020 12:00:00 AM EDT activ e CPAP Machine eCW1 ([facility]) CPAP Machine UNK 07/25/2020 12:00:00 AM EDT activ e CPAP Machine eCW1 ([facility]) CPAP Machine UNK 07/25/2020 12:00:00 AM EDT activ e CPAP Machine eCW1 ([facility]) CPAP Machine UNK 07/25/2020 12:00:00 AM EDT activ e CPAP Machine eCW1 ([facility]) CPAP Machine UNK 07/25/2020 12:00:00 AM EDT activ e CPAP Machine eCW1 ([facility]) CPAP Machine UNK 07/25/2020 12:00:00 AM EDT activ e CPAP Machine eCW1 ([facility]) CPAP Machine UNK 07/25/2020 12:00:00 AM EDT activ e CPAP Machine eCW1 ([facility]) CPAP Machine UNK 07/25/2020 12:00:00 AM EDT activ e CPAP Machine eCW1 ([facility]) CPAP Machine UNK 07/25/2020 12:00:00 AM EDT activ e CPAP Machine eCW1 ([facility]) Alcohol Pads 70 % Alcohol Pads 70 % 07/11/2020 12:00:00 AM EDT active Alcohol Pads 70 % eCW1 ([facility]) Alcohol Pads 70 % Alcohol Pads 70 % 07/11/2020 12:00:00 AM EDT active Alcohol Pads 70 % eCW1 ([facility]) Alcohol Pads 70 % Alcohol Pads 70 % 07/11/2020 12:00:00 AM EDT active Alcohol Pads 70 % eCW1 ([facility]) Alcohol Pads 70 % Alcohol Pads 70 % 07/11/2020 12:00:00 AM EDT active Alcohol Pads 70 % eCW1 ([facility]) Alcohol Pads 70 % Alcohol Pads 70 % 07/11/2020 12:00:00 AM EDT active Alcohol Pads 70 % eCW1 ([facility]) Alcohol Pads 70 % Alcohol Pads 70 % 07/11/2020 12:00:00 AM EDT active Alcohol Pads 70 % eCW1 ([facility]) Alcohol Pads 70 % Alcohol Pads 70 % 07/11/2020 12:00:00 AM EDT active Alcohol Pads 70 % eCW1 ([facility]) Alcohol Pads 70 % Alcohol Pads 70 % 07/11/2020 12:00:00 AM EDT active Alcohol Pads 70 % eCW1 ([facility]) Alcohol Pads 70 % Alcohol Pads 70 % 07/11/2020 12:00:00 AM EDT active Alcohol Pads 70 % eCW1 ([facility]) Alcohol Pads 70 % Alcohol Pads 70 % 07/11/2020 12:00:00 AM EDT active Alcohol Pads 70 % eCW1 ([facility]) Alcohol Pads 70 % Alcohol Pads 70 % 07/11/2020 12:00:00 AM EDT active Alcohol Pads 70 % eCW1 ([facility]) Alcohol Pads 70 % Alcohol Pads 70 % 07/11/2020 12:00:00 AM EDT active Alcohol Pads 70 % eCW1 ([facility]) 31 gauge x 1/4" 07/11/2020 12:00:00 AM EDT needle 540 USE 6 TIMES A DAY USE 6 TIMES A DAY SOLD: 07/13/2020 [facility] Alcohol Pads 70 % Alcohol Pads 70 % 07/11/2020 12:00:00 AM EDT active Alcohol Pads 70 % eCW1 ([facility]) Escitalopram 20 MG Oral Tablet ESCITALOPRAM OXALATE [...] NovoLIN R FlexPen 100 UNIT/ML eCW1 ([facility]) NovoLIN R FlexPen 100 UNIT/ML NovoLIN R FlexPen 100 UNIT/ML 05/29/2020 12:00:00 AM EST active NovoLIN R FlexPen 100 UNIT/ML eCW1 ([facility]) NovoLIN R FlexPen 100 UNIT/ML NovoLIN R FlexPen 100 UNIT/ML 05/29/2020 12:00:00 AM EST active Novo[employer] R FlexPen 100 UNIT/ML eCW1 ([facility]) NovoLIN R FlexPen 100 UNIT/ML NovoLIN R FlexPen 100 UNIT/ML 05/29/2020 12:00:00 AM EST active Novo[employer] R FlexPen 100 UNIT/ML eCW1 ([facility]) NovoLIN R FlexPen 100 UNIT/ML NovoLIN R FlexPen 100 UNIT/ML 05/29/2020 12:00:00 AM EST active Novo[employer] R FlexPen 100 UNIT/ML eCW1 ([facility]) NovoLIN R FlexPen 100 UNIT/ML NovoLIN R FlexPen 100 UNIT/ML 05/29/2020 12:00:00 AM EST active NovoLIN R FlexPen 100 UNIT/ML eCW1 ([facility]) NovoLIN R FlexPen 100 UNIT/ML NovoLIN R FlexPen 100 UNIT/ML 05/29/2020 12:00:00 AM EST active NovoLIN R FlexPen 100 UNIT/ML eCW1 ([facility]) NovoLIN R FlexPen 100 UNIT/ML NovoLIN R FlexPen 100 UNIT/ML 05/29/2020 12:00:00 AM EST active NovoLIN R FlexPen 100 UNIT/ML eCW1 ([facility]) NovoLIN R FlexPen 100 UNIT/ML NovoLIN R FlexPen 100 UNIT/ML 05/29/2020 12:00:00 AM EST active NovoLIN R FlexPen 100 UNIT/ML eCW1 ([facility]) NovoLIN R FlexPen 100 UNIT/ML NovoLIN R FlexPen 100 UNIT/ML 05/29/2020 12:00:00 AM EST active NovoLIN R FlexPen 100 UNIT/ML eCW1 ([facility]) NovoLIN R FlexPen 100 UNIT/ML NovoLIN R FlexPen 100 UNIT/ML 05/29/2020 12:00:00 AM EST active NovoLIN R FlexPen 100 UNIT/ML eCW1 ([facility]) NovoLIN R FlexPen 100 UNIT/ML NovoLIN R FlexPen 100 UNIT/ML 05/29/2020 12:00:00 AM EST active NovoLIN R FlexPen 100 UNIT/ML eCW1 ([facility]) NovoLIN R FlexPen 100 UNIT/ML NovoLIN R FlexPen 100 UNIT/ML 05/29/2020 12:00:00 AM EST active NovoLIN R FlexPen 100 UNIT/ML eCW1 ([facility]) NovoLIN R FlexPen 100 UNIT/ML NovoLIN R FlexPen 100 UNIT/ML 05/29/2020 12:00:00 AM EST active NovoLIN R FlexPen 100 UNIT/ML eCW1 ([facility]) NovoLIN R FlexPen 100 UNIT/ML NovoLIN R FlexPen 100 UNIT/ML 05/29/2020 12:00:00 AM EST active NovoLIN R FlexPen 100 UNIT/ML eCW1 ([facility]) NovoLIN R FlexPen 100 UNIT/ML NovoLIN R FlexPen 100 UNIT/ML 05/29/2020 12:00:00 AM EST active NovoLIN R FlexPen 100 UNIT/ML eCW1 ([facility]) NovoLIN R FlexPen 100 UNIT/ML NovoLIN R FlexPen 100 UNIT/ML 05/29/2020 12:00:00 AM EST active NovoLIN R FlexPen 100 UNIT/ML eCW1 ([facility]) NovoLIN R FlexPen 100 UNIT/ML NovoLIN R FlexPen 100 UNIT/ML 05/29/2020 12:00:00 AM EST active [employer] R FlexPen 100 UNIT/ML eCW1 ([facility]) NovoLIN R FlexPen 100 UNIT/ML NovoLIN R FlexPen 100 UNIT/ML 05/29/2020 12:00:00 AM EST active Novo[employer] R FlexPen 100 UNIT/ML eCW1 ([facility]) NovoLIN R FlexPen 100 UNIT/ML NovoLIN R FlexPen 100 UNIT/ML 05/29/2020 12:00:00 AM EST active NovoLIN R FlexPen 100 UNIT/ML eCW1 ([facility]) NovoLIN R FlexPen 100 UNIT/ML NovoLIN R FlexPen 100 UNIT/ML 05/29/2020 12:00:00 AM EST active [facility]o[employer] R FlexPen 100 UNIT/ML eCW1 ([facility]) NovoLIN R FlexPen 100 UNIT/ML NovoLIN R FlexPen 100 UNIT/ML 05/29/2020 12:00:00 AM EST active [facility] R FlexPen 100 UNIT/ML eCW1 ([facility]) NovoLIN R FlexPen 100 UNIT/ML NovoLIN R FlexPen 100 UNIT/ML 05/29/2020 12:00:00 AM EST active [facility] R FlexPen 100 UNIT/ML eCW1 ([facility]) NovoLIN R FlexPen 100 UNIT/ML NovoLIN R FlexPen 100 UNIT/ML 05/29/2020 12:00:00 AM EST active Novo[facility] R FlexPen 100 UNIT/ML eCW1 ([facility]) 50 mg 03/14/2020 12:00:00 AM EST tablet [...] type / Coverage type Policy ID Covered constitution party ID Covered constitution party's relationship to arroyo Policy [place] Plan Information MEDICARE COMPLETE [id number] SP [id number] MEDICARE COMPLETE [id number] SP [id number] MEDICARE COMPLETE [id number] SP [id number] MEDICARE COMPLETE [id number] SP [id number] MEDICARE [id number] SP [id number] MEDICARE COMPLETE [id number] SP [id number] [facility] [id number] SP [id number] MEDICARE COMPLETE [id number] SP [id number] ANS-Medicare Part B [id number] ANS-Medicare Part B [id number] [facility]-Medicaid [id number] ANS-Medicare Part B [id number] ANS-Medicare Part B [id number] ANSI-Medicaid [id number] ANSI-Medicare Part B [id number] ANSI-Medicare Part B [id number] ANSI-Medicaid [id number] ANSI-Medicare Part B [id number] ANSI-Medicare Part B [id number] ANSI-Medicare Part B [id number] ANSI-Medicare Part B [id number] ANSI-Medicaid [id number] ANSI-Medicare Part B [id number] ANSI-Medicare Part B [id number] ANSI-Medicaid [id number] ANSI-Medicare Part B [id number] ANSI-Medicare Part B [id number] ANSI-Medicare Part B [id number] ANSI-Medicare Part B [id number] ANSI-Medicare Part B [id number] ANSI-Medicare Part B [id number] ANSI-Medicaid [id number] ANSI-Medicare Part B [id number] ANSI-Medicare Part B [id number] ANSI-Medicare Part B [id number] ANSI-Medicaid [id number] ANSI-Medicare Part B [id number] ANSI-Medicaid [id number] ANSI-Medicare Part B [id number] ANSI-Medicare Part B [id number] ANSI-Medicare Part B [id number] ANSI-Medicaid [id number] ANSI-Medicare Part B [id number] ANSI-Medicare Part B [id number] ANSI-Medicaid [id number] ANSI-Medicaid [id number] ANSI-Medicare Part B [id number] ANSI-Medicare Part B [id number] ANSI-Medicare Part B [id number] ANSI-Medicare Part B [id number] ANSI-Medicaid [id number] MEDICAID [id number] SP [id number] ANSI-Medicare Part B [id number] ANSI-Medicaid [id number] ANSI-Medicare Part B [id number] ANSI-Medicare Part B [id number] ANSI-Medicaid [id number] ANSI-Medicare Part B [id number] ANSI-Medicare Part B [id number] ANSI-Medicaid [id number] ANSI-Medicare Part B [id number] ANSI-Medicare Part B [id number] ANSI-Medicare Part B [id number] ANSI-Medicaid [id number] ANSI-Medicare Part B [id number] ANSI-Medicare Part B [id number] ANSI-Medicaid [id number] ANSI-Medicaid [id number] ANSI-Medicare Part B [id number] ANSI-Medicare Part B [id number] MEDICARE [id number] SP [id number] A [facility] Medicare Commercial [id number] Self [id number] MEDICARE C [id number] S [id number] [facility] [id number] Self [id number] MEDICARE COMPLETE [id number] SP [id number] [facility] [id number] Self MEDICAID [id number] SP [id number] BLUE CROSS COLE PLAN [id number] SP [id number] HMO BLUE [id number] SP [id number] MEDICAID GME W [id number] S [id number] BLUE CHOICE OPTION O [id number] S [id number] PROGRESSIVE NO FAULT O [id number] S [id number] PROGRESSIVE NO FAULT O 0 S 0 PROGRESSIVE CO NO FAULT [id number] SP [id number] SELF PAY UNAVAILABLE SP UNAVAILA BLE BLUE CROSS BLUE SHIELD-O/P [id number] 18 [id number] BLUE CROSS BLUE SHIELD-CLINIC [id number] 18 [id number] HMO BLUE P [id number] S [id number] EXCELL[employer] BCBS P [id number] S [id number] [id number] UNHC COMMUNITY PLAN MCDO [id number] SP [id number] [place] [id number] SP [id number] G AETNA MEDICARE [id number] SP MEBSM W[place]J AETNA MEDICARE O [id number] S MEBSM W[place] MEDICARE COMPLETE-UHC O [id number] S [id number] MEDICARE COMPLETE [id number] SP [id number] Problems, Conditions, and Diagnoses Code Display Name Description Problem Type Effective Dates Data Source(s) E03.9 556565949 Acquired hypothyroidism Problem 12/12/2020 1 2:00:00 AM EDT eCW1 ([facility]) G89.29 40320745 Other chronic pain Problem 11/15/2020 12:00: 00 AM EDT eCW1 ([facility]) E11.65 10282713 Type 2 diabetes mellitus with hyperglycem ia Problem 05/29/2020 12:00:00 AM EST eCW1 ([facility]) Z79.4 [id number] half-way (current) use of insulin Proble m 05/29/2020 12:00:00 AM EST eCW1 ([facility]) Surgeries/Procedures Procedure Description Date Indications Data Source(s) OFFICE OUTPATIENT NEW 45 MINUTES 12/11/2020 12:00:00 A M EDT MEDENT ([facility] ) PNEUMOCOCCAL CONJ VACCINE 13 VALENT IM 05/23/2020 12:0 0:00 AM EST eCW1 ([facility]) Results ID Date Data Source C-[id number] 05/29/2020 12:00:00 AM EST eCW1 ([facility]) Name Value Range Interpretation Code Description Data Anya rce(s) Supporting Document(s) 5.1 1.1-4.4 C-PEPTIDE eCW1 ([facility]) ID Date Data Source LIPID PANEL (CARDIAC RISK) 05/23/2020 12:00:00 AM EST eCW1 ( [facility]) Name Value Range Interpretation Code Description Data Anya rce(s) Supporting Document(s) Triglyceride [Mass/volume] in Serum or Plasma by calculation 252 <150 TRIGLYCERIDES LEVEL eCW1 ([facility]) Cholesterol [Moles/volume] in Serum or Plasma 165 <200 CHOLESTEROL LEVEL eC1 ([facility]) Cholesterol in HDL [Moles/volume] in Serum or Plasma 39 >40 HDL CHOLESTEROL eCW1 ([facility]) 4.230 <5 CHOLESTEROL RISK RATIO eCW1 ([facility]) 126 NON-HDL-C eCW1 ([facility]) Cholesterol in LDL [Mass/volume] in Serum or Plasma by calculation 76 <100 LDL CHOLESTEROL eCW1 ([facility]) ID Date Data Source TSH 05/23/2020 12:00:00 AM EST eCW1 ([facility]) Name Value Range Interpretation Code Description Data Anya rce(s) Supporting Document(s) 0.886 0.358-3.740 THYROID STIMULATING HORM ONE eCW1 ([facility]) ID Date Data Source [id number] 05/23/2020 12:00:00 AM EST eCW1 ([facility]) Name Value Range Interpretation Code Description Data Anya rce(s) Supporting Document(s) Microalbumin/Creatinine [Mass Ratio] in Urine 46.8 CREATININE, URINE eCW1 ([facility]) Albumin/Creatinine [Mass Ratio] in Urine 9.4 MALB URINE SIEMENS eCW1 ([facility]) Microalbumin/Creatinine [Ratio] in Urine 20.0 0.0-30.0 BRAULIO/CREAT RATIO eCW1 ([facility]) ID Date Data Source MAGNESIUM LEVEL 05/23/2020 12:00:00 AM EST eCW1 ([facility]) Name Value Range Interpretation Code Description Data Anya rce(s) Supporting Document(s) 1.5 1.8-2.4 MAGNESIUM LEVEL eCW1 ([facility]) ID Date Data Source VITAMIN D [id number] 05/23/2020 12:00:00 AM EST eCW1 ([facility]) Name Value Range Interpretation Code Description Data Anya rce(s) Supporting Document(s) 33.1 30.0-100.0 TOTAL 25(OH) VITAMIN D eC W1 ([facility]) ID Date Data Source [id number] 05/23/2020 12:00:00 AM EST eCW1 ([facility]) Name Value Range Interpretation Code Description Data Anya rce(s) Supporting Document(s) Hemoglobin A1c/Hemoglobin.total in Blood 11.4 HEMOGLOBIN A1c eCW1 ([facility]) ID Date Data Source Comprehensive Metabolic Profile (CMP) 05/23/2020 12:00:00 AM EST eCW1 ([facility]) Name Value Range Interpretation Code Description Data Anya rce(s) Supporting Document(s) 266 70-100 GLUCOSE, FASTING eCW1 ([facility]) 0.85 0.55-1.30 CREATININE FOR GFR eCW1 ([facility]) > 60.0 >39 GLOMERULAR FILTRATION RATE eCW 1 ([facility]) 13 7-18 BLOOD UREA NITROGEN eCW1 ([facility]) 97 98-107 CHLORIDE LEVEL eCW1 ([facility]) 4.3 3.5-5.1 POTASSIUM SERUM eCW1 ([facility]) 138 136-145 SODIUM LEVEL eCW1 ([facility]) 35 21-32 CARBON DIOXIDE LEVEL eCW1 ([facility]) 31 12-78 ALT/SGPT eCW1 ([facility]) 22 7-37 AST/SGOT eCW1 ([facility]) 159 45-117 ALKALINE PHOSPHATASE eCW1 ([facility]) 9.9 8.8-10.2 CALCIUM LEVEL eCW1 ([facility]) 3.6 3.2-5.2 ALBUMIN eCW1 ([facility]) 7.1 6.4-8.2 TOTAL PROTEIN eCW1 ([facility]) 1.2 0.2-1.0 BILIRUBIN,TOTAL eCW1 ([facility]) 1.0 1.2-2.2 ALBUMIN/GLOBULIN RATIO eCW1 ([facility]) ID Date Data Source CBC with Differential 05/23/2020 12:00:00 AM EST eCW1 ([facility]) Name Value Range Interpretation Code Description Data Anya rce(s) Supporting Document(s) 8.7 4.0-10.0 WHITE BLOOD COUNT eCW1 ([facility]) 5.23 4.00-5.40 RED BLOOD COUNT eCW1 ([facility]) 14.7 12.0-15.5 HEMOGLOBIN eCW1 ([facility]) 87.2 80.0-96.0 MEAN CORPUSCULAR VOLUME e CW1 ([facility]) 45.6 36.0-47.0 HEMATOCRIT eCW1 ([facility]) 200 150-450 PLATELET COUNT, AUTOMATED eCW1 ([facility]) 13.0 11.5-14.5 RED CELL DISTRIBUTION WID TH eCW1 ([facility]) 28.1 27.0-33.0 MEAN CORPUSCULAR HEMOGLOB IN eCW1 ([facility]) 32.2 32.0-36.5 MEAN CORPUSCULAR HGB CONC eCW1 ([facility]) 48.0 36.0-66.0 NEUTROPHILS % eCW1 ([facility]) 2.7 0.0-3.0 EOS % eCW1 ([facility]) 8.2 0.0-5.0 MONO % eCW1 ([facility]) 40.3 24.0-44.0 LYMPH % eCW1 ([facility]) 4.2 1.5-8.5 NEUTROPHILS # eCW1 ([facility]) 0.6 0.0-1.0 BASO % eCW1 ([facility]) 3.5 1.5-5.0 LYMPH # eCW1 ([facility]) 0.1 0.0-0.2 BASO # eCW1 ([facility]) 0.7 0.0-0.8 MONO # eCW1 ([facility]) 0.2 0.0-0.5 EOS # eCW1 ([facility]) Procedure Social History Code Duration Value Status Description Data Source(s ) Smoking 12/12/2020 12:00:00 AM EDT Never Smoker completed Never S moker eCW1 ([facility]) Smoking 11/15/2020 12:00:00 AM EDT Never Smoker completed Never S moker eCW1 ([facility]) Smoking 11/15/2020 12:00:00 AM EDT Never Smoker completed Never S moker eCW1 ([facility]) Smoking 07/25/2020 12:00:00 AM EDT Never Smoker completed Never S moker eCW1 ([facility]) Smoking 07/25/2020 12:00:00 AM EDT Never Smoker completed Never S moker eCW1 ([facility]) Smoking 07/25/2020 12:00:00 AM EDT Never Smoker completed Never S moker eCW1 ([facility]) Smoking 07/25/2020 12:00:00 AM EDT Never Smoker completed Never S moker eCW1 ([facility]) Smoking 07/25/2020 12:00:00 AM EDT Never Smoker completed Never S moker eCW1 ([facility]) Smoking 07/25/2020 12:00:00 AM EDT Never Smoker completed Never S moker eCW1 ([facility]) Smoking 07/25/2020 12:00:00 AM EDT Never Smoker completed Never S moker eCW1 ([facility]) Smoking 07/25/2020 12:00:00 AM EDT Never Smoker completed Never S moker eCW1 ([facility]) Smoking 06/20/2020 12:00:00 AM EST Never Smoker completed Never S moker eCW1 ([facility]) Smoking 06/20/2020 12:00:00 AM EST Never Smoker completed Never S moker eCW1 ([facility]) Smoking 06/20/2020 12:00:00 AM EST Never Smoker completed Never S moker eCW1 ([facility]) Smoking 06/20/2020 12:00:00 AM EST Never Smoker completed Never S moker eCW1 ([facility]) Smoking 06/20/2020 12:00:00 AM EST Never Smoker completed Never S moker eCW1 ([facility]) Smoking 06/20/2020 12:00:00 AM EST Never Smoker completed Never S moker eCW1 ([facility]) Smoking 06/20/2020 12:00:00 AM EST Never Smoker completed Never S moker eCW1 ([facility]) Smoking 06/20/2020 12:00:00 AM EST Never Smoker completed Never S moker eCW1 ([facility]) Smoking 06/20/2020 12:00:00 AM EST Never Smoker completed Never S moker eCW1 ([facility]) Smoking 05/29/2020 12:00:00 AM EST Never Smoker completed Never S moker eCW1 ([facility]) Smoking 05/29/2020 12:00:00 AM EST Never Smoker completed Never S moker eCW1 ([facility]) Smoking 05/29/2020 12:00:00 AM EST Never Smoker completed Never S moker eCW1 ([facility]) Smoking 05/29/2020 12:00:00 AM EST Never Smoker completed Never S moker eCW1 ([facility]) Smoking 05/23/2020 12:00:00 AM EST Never Smoker completed Never S moker eCW1 ([facility]) Vital Signs ID Date Data Source UNK Name Value Range Interpretation Code Description Data Source(s) Body mass index (BMI) [Ratio] 47.80 kg/m2 47.80 kg/m2 eCW1 ([facility]) Body weight 253 [lb_av] 253 [lb_av] eCW1 ([facility]) Body height 61 [in_i] 61 [in_i] eCW1 ([facility]) Heart rate 87 /min 87 /min eCW1 ([facility]) Respiratory rate 18 /min 18 /min eCW1 ([facility]) Body temperature 97.6 [degF] 97.6 [degF] eCW1 ( [facility]) Systolic blood pressure 120 mm[Hg] 120 mm[Hg] e CW1 ([facility]) Diastolic blood pressure 80 mm[Hg] 80 mm[Hg] eCW1 ([facility]) Body weight 248.00 [lb_av] 248.00 [lb_av] MEDEN T ([facility]) Body temperature 96.0 [degF] 96.0 [degF] MEDENT ([facility]) Body height 61 [in_i] 61 [in_i] MEDENT ([facility]) 5'1" Body mass index (BMI) [Ratio] 46.9 kg/m2 46.9 k g/m2 MEDENT ([facility]) Respiratory rate 18 /min 18 /min eCW1 ([facility]) Body weight 252.8 [lb_av] 252.8 [lb_av] eCW1 ([facility]) Body temperature 96.3 [degF] 96.3 [degF] eCW1 ( [facility]) Systolic blood pressure 130 mm[Hg] 130 mm[Hg] e CW1 ([facility]) Diastolic blood pressure 90 mm[Hg] 90 mm[Hg] eCW1 ([facility]) Body height 61 [in_i] 61 [in_i] eCW1 ([facility]) Body mass index (BMI) [Ratio] 47.76 kg/m2 47.76 kg/m2 eCW1 ([facility]) Heart rate 89 /min 89 /min eCW1 ([facility]) Body weight 249 [lb_av] 249 [lb_av] eCW1 ([facility]) Body height 61 [in_i] 61 [in_i] eCW1 ([facility]) Body mass index (BMI) [Ratio] 47.04 kg/m2 47.04 kg/m2 eCW1 ([facility]) Heart rate 80 /min 80 /min eCW1 ([facility]) Respiratory rate 18 /min 18 /min eCW1 ([facility]) Body temperature 96.8 [degF] 96.8 [degF] eCW1 ( [facility]) Systolic blood pressure 156 mm[Hg] 156 mm[Hg] e CW1 ([facility]) Diastolic blood pressure 76 mm[Hg] 76 mm[Hg] eCW1 ([facility]) Body weight 253 [lb_av] 253 [lb_av] eCW1 ([facility]) Body height 61 [in_i] 61 [in_i] eCW1 ([facility]) Body mass index (BMI) [Ratio] 47.80 kg/m2 47.80 kg/m2 eCW1 ([facility]) Heart rate 87 /min 87 /min eCW1 ([facility]) Respiratory rate 18 /min 18 /min eCW1 ([facility]) Body temperature 97.8 [degF] 97.8 [degF] eCW1 ( [facility]) Systolic blood pressure 130 mm[Hg] 130 mm[Hg] e CW1 ([facility]) Diastolic blood pressure 82 mm[Hg] 82 mm[Hg] eCW1 ([facility]) Body weight 254 [lb_av] 254 [lb_av] eCW1 ([facility]) Body height 61 [in_i] 61 [in_i] eCW1 ([facility]) Body mass index (BMI) [Ratio] 47.99 kg/m2 47.99 kg/m2 eCW1 ([facility]) Heart rate 85 /min 85 /min eCW1 ([facility]) Respiratory rate 18 /min 18 /min eCW1 ([facility]) Body temperature 96.7 [degF] 96.7 [degF] eCW1 ( [facility]) Systolic blood pressure 128 mm[Hg] 128 mm[Hg] e CW1 ([facility]) Diastolic blood pressure 76 mm[Hg] 76 mm[Hg] eCW1 ([facility]) Body weight 253 [lb_av] 253 [lb_av] eCW1 ([facility]) Body height 61 [in_i] 61 [in_i] eCW1 ([facility]) Body mass index (BMI) [Ratio] 47.80 kg/m2 47.80 kg/m2 eCW1 ([facility]) Heart rate 87 /min 87 /min eCW1 ([facility]) Respiratory rate 20 /min 20 /min eCW1 ([facility]) Body temperature 96.2 [degF] 96.2 [degF] eCW1 ( [facility]) Systolic blood pressure 170 mm[Hg] 170 mm[Hg] e CW1 ([facility]) Diastolic blood pressure 100 mm[Hg] 100 mm[Hg] eCW1 ([facility]) Patient Treatment Plan of Care Planned Activity Planned Date Details Description Data Source (s) Nystatin 900157 UNT/ML Topical Cream 12/12/2020 12:00:00 AM EDT eCW1 ([facility]) CPAP Machine 07/25/2020 12:00:00 AM EDT e CW1 ([facility]) CPAP Machine 07/25/2020 12:00:00 AM EDT e CW1 ([facility]) CPAP Machine 07/25/2020 12:00:00 AM EDT e CW1 ([facility]) CPAP Machine 07/25/2020 12:00:00 AM EDT e CW1 ([facility]) CPAP Machine 07/25/2020 12:00:00 AM EDT e CW1 ([facility]) CPAP Machine 07/25/2020 12:00:00 AM EDT e CW1 ([facility]) CPAP Machine 07/25/2020 12:00:00 AM EDT e CW1 ([facility]) CPAP Machine 07/25/2020 12:00:00 AM EDT e CW1 ([facility]) Alcohol Pads 70 % 07/11/2020 12:00:00 AM EDT eCW1 ([facility]) Alcohol Pads 70 % 07/11/2020 12:00:00 AM EDT eCW1 ([facility]) NovoLIN R FlexPen 100 UNIT/ML 05/29/2020 12:00:00 AM EST eCW1 ([facility]) NovoLIN R FlexPen 100 UNIT/ML 05/29/2020 12:00:00 AM EST eCW1 ([facility]) NovoLIN R FlexPen 100 UNIT/ML 05/29/2020 12:00:00 AM EST eCW1 ([facility]) NovoLIN R FlexPen 100 UNIT/ML 05/29/2020 12:00:00 AM EST eCW1 ([facility]) NovoLIN R FlexPen 100 UNIT/ML 05/29/2020 12:00:00 AM EST eCW1 ([facility])
[2021-02-07 21:17] LABS: ALBUMIN 3.2 GM/DL (3.2-5.2); BILIRUBIN,DIRECT 0.3 MG/DL (0.0-0.2); BILIRUBIN,TOTAL 1.5 MG/DL (0.2-1.0); TOTAL PROTEIN 7.9 GM/DL (6.4-8.2)
[2021-02-07] MEDS ORDERED: ACETAMINOPHEN 325 MG TAB PO ONE (21:45)
[2021-02-07 22:33] VITALS: BP 155/89
== END 2021-02-07 22:34 | disposition home or self-care (01) ==
LOC: M ED 13:35
DX: D64.9 Anemia, unspecified (principal); I10 Essential (primary) hypertension; E11.9 Type 2 diabetes mellitus without complications; R73.09 Other abnormal glucose; R79.89 Other specified abnormal findings of blood chemistry; R51.9 Headache, unspecified; E03.9 Hypothyroidism, unspecified; G47.30 Sleep apnea, unspecified; Z79.4 Long term (current) use of insulin; Z79.899 Other long term (current) drug therapy

== ENCOUNTER → 2021-07-13 | Outpatient (REF) | payer MEDICARE, MEDICAID ==
[~2021-07-13] MED LIST changes: +INSU100I12; +TRUL0.5I
[2021-07-13 12:54] LABS: HEMATOCRIT 41.3 % (36.0-47.0); HEMOGLOBIN 13.7 g/dl (12.0-15.5); MEAN CORPUSCULAR HEMOGLOBIN 28.2 pg (27.0-33.0); MEAN CORPUSCULAR HGB CONC 33.2 g/dl (32.0-36.5); PLATELET COUNT, AUTOMATED 187 10^3/uL (150-450); RED BLOOD COUNT 4.86 10^6/uL (4.00-5.40); WHITE BLOOD COUNT 7.8 10^3/uL (4.0-10.0)
[2021-07-13 13:29] LABS: ALBUMIN 3.4 GM/DL (3.2-5.2); ALT/SGPT 37 U/L (12-78); BILIRUBIN,TOTAL 1.4 MG/DL (0.2-1.0); BLOOD UREA NITROGEN 14 MG/DL (7-18); CALCIUM LEVEL 9.8 MG/DL (8.8-10.2); CARBON DIOXIDE LEVEL 37 MEQ/L (21-32); CHLORIDE LEVEL 100 MEQ/L (98-107); CHOLESTEROL LEVEL 163 MG/DL (<200); CREATININE FOR GFR 0.84 MG/DL (0.55-1.30); FREE T4 1.44 NG/DL (0.76-1.46); GLOMERULAR FILTRATION RATE > 60.0 (>39); GLUCOSE, FASTING 274 MG/DL (70-100); HDL CHOLESTEROL 42 MG/DL (>40); LDL CHOLESTEROL 70 MG/DL (<100); MAGNESIUM LEVEL 1.6 MG/DL (1.8-2.4); NON-HDL-C 121 MG/DL; POTASSIUM SERUM 3.7 MEQ/L (3.5-5.1); SODIUM LEVEL 140 MEQ/L (136-145); TRIGLYCERIDES LEVEL 254 MG/DL (<150)
[2021-07-13 13:35] LABS: TOTAL 25(OH) VITAMIN D 35.4 NG/ML (30.0-100.0); VITAMIN B12 LEVEL 466 PG/ML
[2021-07-13 13:36] LABS: FOLATE 14.2 NG/ML
== END ==
LOC: M SFHCPLAZ 10:30
PROVIDERS: ATTEND Physician Assistant
DX: E11.65 Type 2 diabetes mellitus with hyperglycemia (principal); E03.9 Hypothyroidism, unspecified; E55.9 Vitamin D deficiency, unspecified; E83.42 Hypomagnesemia

== ENCOUNTER → 2021-07-30 | Outpatient (CLI) | payer MEDICARE, MEDICAID | LOC: M WHC 15:44 | PROVIDERS: ATTEND Physician Assistant | DX: Z12.31 Encounter for screening mammogram for malignant neoplasm of breast (principal) ==

== ENCOUNTER → 2021-08-09 | Outpatient (CLI) | payer MEDICARE, MEDICAID | LOC: M WHC 09:47 | PROVIDERS: ATTEND Physician Assistant | DX: Z12.31 Encounter for screening mammogram for malignant neoplasm of breast (principal); N64.89 Other specified disorders of breast | CPT/HCPCS: 76642; 77065; G0279 ==

== ENCOUNTER → 2022-01-23 | Outpatient (REF) | payer MEDICARE, MEDICAID ==
[2022-01-23 16:49] LABS: HEMOGLOBIN A1c 8.6 %
[2022-01-23 17:20] LABS: BLOOD UREA NITROGEN 18 MG/DL (7-18); CALCIUM LEVEL 9.2 MG/DL (8.8-10.2); CARBON DIOXIDE LEVEL 31 MEQ/L (21-32); CHLORIDE LEVEL 99 MEQ/L (98-107); CREATININE FOR GFR 0.92 MG/DL (0.55-1.30); GLOMERULAR FILTRATION RATE > 60.0 (>39); GLUCOSE, FASTING 389 MG/DL (70-100); POTASSIUM SERUM 4.3 MEQ/L (3.5-5.1); SODIUM LEVEL 136 MEQ/L (136-145)
== END ==
LOC: M SFHCADAM 11:58
PROVIDERS: ATTEND Physician Assistant
DX: E11.65 Type 2 diabetes mellitus with hyperglycemia (principal); I10 Essential (primary) hypertension

== ENCOUNTER → 2022-02-11 | Outpatient (CLI) | payer MEDICARE, MEDICAID | LOC: M WHC 11:41 | PROVIDERS: ATTEND Physician Assistant | DX: R92.8 Other abnormal and inconclusive findings on diagnostic imaging of breast (principal) ==

== ENCOUNTER 2022-02-15 09:31 | Inpatient (IN) | payer MEDICARE, MEDICAID ==
[~2022-02-15] VITALS: Ht 152.4 cm; Wt 110.5 kg
[2022-02-15] MEDS: ramipriL 5 MG CAP PO SCH (09:00)
[2022-02-15] MEDS: ESCITALOPRAM OXALATE 10 MG TAB (LEXAPRO) PO SCH (09:00)
[~2022-02-15 09:31] MED LIST changes: -INSU100I12; +INSU100I12 SC; +OMEPRAZOLE 20MG CAP PO SCH
[2022-02-15 10:50] LABS: BASO # 0.1 10^3/uL (0.0-0.2); BASO % 0.7 % (0.0-1.0); EOS # 0.2 10^3/uL (0.0-0.5); EOS % 2.1 % (0.0-3.0); HEMATOCRIT 40.8 % (36.0-47.0); HEMOGLOBIN 12.9 g/dl (12.0-15.5); LYMPH # 2.2 10^3/uL (1.5-5.0); LYMPH % 26.6 % (24.0-44.0); MEAN CORPUSCULAR HEMOGLOBIN 27.9 pg (27.0-33.0); MEAN CORPUSCULAR HGB CONC 31.6 g/dl (32.0-36.5); MEAN CORPUSCULAR VOLUME 88.3 fl (80.0-96.0); MONO # 0.8 10^3/uL (0.0-0.8); NEUTROPHILS # 4.9 10^3/uL (1.5-8.5); NEUTROPHILS % 59.9 % (36.0-66.0); PLATELET COUNT, AUTOMATED 244 10^3/uL (150-450); RED BLOOD COUNT 4.62 10^6/uL (4.00-5.40); WHITE BLOOD COUNT 8.1 10^3/uL (4.0-10.0)
[2022-02-15] MEDS ORDERED: VANCOMYCIN HCL 2,000 MG in D5W 500 ML IV ONE (11:00)
[2022-02-15] MEDS ORDERED: CIPROFLOXACIN 400 MG in IV 1 EA IV ONE (11:00)
[2022-02-15] MEDS ORDERED: VANCOMYCIN HCL 1,000 MG, VIAL MATE ADAPTER 1 EACH in NS 250 ML IV ONE ×6 (11:10)
[2022-02-15 11:29] LABS: ERYTHROCYTE SEDIMENTATION RATE 52 mm/hr (0-30)
[2022-02-15 11:33] LABS: ALBUMIN 2.9 GM/DL (3.2-5.2); ALT/SGPT 26 U/L (12-78); BILIRUBIN,DIRECT 0.2 MG/DL (0.0-0.2); BILIRUBIN,TOTAL 0.6 MG/DL (0.2-1.0); BLOOD UREA NITROGEN 18 MG/DL (7-18); C REACTIVE PROTEIN QUANTITATIV 2.04 MG/DL (0.00-0.30); CALCIUM LEVEL 9.5 MG/DL (8.8-10.2); CARBON DIOXIDE LEVEL 32 MEQ/L (21-32); CHLORIDE LEVEL 101 MEQ/L (98-107); CREATININE FOR GFR 0.97 MG/DL (0.55-1.30); GLOMERULAR FILTRATION RATE > 60.0 (>39); GLUCOSE, FASTING 182 MG/DL (70-100); POTASSIUM SERUM 3.5 MEQ/L (3.5-5.1); SODIUM LEVEL 137 MEQ/L (136-145); TOTAL PROTEIN 7.6 GM/DL (6.4-8.2)
[2022-02-15] MEDS: INSULIN LISPRO (NovoLOG) PER UNIT SC SCH ×2 (12:00→17:30)
[2022-02-15] MEDS ORDERED: ACETAMINOPHEN TAB 650MG DOSE (2X325MG) PO PRN (13:45)
[2022-02-15] MEDS ORDERED: DEXTROSE 50% 50 ML SYRINGE IV PRN (14:15)
[2022-02-15] MEDS ORDERED: GLUCOSE 4GM CHEW TABLET PO PRN (14:15)
[2022-02-15] MEDS ORDERED: GLUCAGON INJ 1MG VIAL SC PRN (14:15)
[2022-02-15] MEDS ORDERED: NYST-13 TOP (15:42)
[2022-02-15] MEDS ORDERED: NAPR-885 PO (15:42)
[2022-02-15] MEDS ORDERED: POTA-151 PO (15:42)
[2022-02-15] MEDS ORDERED: DULA3PEN SC (15:42)
[2022-02-15] MEDS ORDERED: CLIN-250 PO (15:42)
[2022-02-15] MEDS ORDERED: AMIT50TA PO (15:42)
[2022-02-15] MEDS ORDERED: ONDA-83 PO (15:42)
[2022-02-15] MEDS ORDERED: D 1010004 PO (15:42)
[2022-02-15] MEDS ORDERED: LIDO5TD TOP (15:44)
[2022-02-15] MEDS ORDERED: HOME MED LIST COMPLETE! XX SCH ×2 (15:45→15:50)
[2022-02-15 16:40] LABS: RSV AMPLIFICATION NEGATIVE (NEGATIVE)
[2022-02-15] MEDS: PIPERACILLIN/TAZOBACTAM SOD 3.375 GM in D5W MINI-BAG PLUS 50 ML IV SCH (19:15)
[2022-02-15] MEDS ORDERED: PROHANCE 279.3MG/ML 5ML VIAL As Ordered ONE (19:23)
[2022-02-15] MEDS ORDERED: PROHANCE 279.3MG/ML 15ML VIAL As Ordered ONE (19:23)
[2022-02-15] MEDS ORDERED: AMITRIPTYLINE 50 MG TAB PO SCH (21:00)
[2022-02-15] MEDS ORDERED: INSULIN LISPRO (NovoLOG) PER UNIT SC SCH (21:00)
[2022-02-15 22:15] VITALS: BP 152/77
[2022-02-15] MEDS: VANCOMYCIN HCL 1,000 MG, VIAL MATE ADAPTER 1 EACH in NS 250 ML IV SCH (23:04)
[2022-02-16] MEDS: PIPERACILLIN/TAZOBACTAM SOD 3.375 GM in D5W MINI-BAG PLUS 50 ML IV SCH ×2 (00:48→05:59)
[2022-02-16 06:00] VITALS: BP 152/79
[2022-02-16] MEDS ORDERED: LEVOTHYROXINE 125MCG TABLET (0.125MG) PO SCH (06:00)
[2022-02-16 06:08] LABS: HEMATOCRIT 37.3 % (36.0-47.0); HEMOGLOBIN 12.2 g/dl (12.0-15.5); MEAN CORPUSCULAR HEMOGLOBIN 27.9 pg (27.0-33.0); MEAN CORPUSCULAR HGB CONC 32.7 g/dl (32.0-36.5); MEAN CORPUSCULAR VOLUME 85.4 fl (80.0-96.0); PLATELET COUNT, AUTOMATED 234 10^3/uL (150-450); RED BLOOD COUNT 4.37 10^6/uL (4.00-5.40); WHITE BLOOD COUNT 9.1 10^3/uL (4.0-10.0)
[2022-02-16 06:36] LABS: BLOOD UREA NITROGEN 14 MG/DL (7-18); C REACTIVE PROTEIN QUANTITATIV 1.51 MG/DL (0.00-0.30); CALCIUM LEVEL 9.1 MG/DL (8.8-10.2); CARBON DIOXIDE LEVEL 30 MEQ/L (21-32); CHLORIDE LEVEL 105 MEQ/L (98-107); CREATININE FOR GFR 0.85 MG/DL (0.55-1.30); GLOMERULAR FILTRATION RATE > 60.0 (>39); GLUCOSE, FASTING 97 MG/DL (70-100); MAGNESIUM LEVEL 1.7 MG/DL (1.8-2.4); POTASSIUM SERUM 3.5 MEQ/L (3.5-5.1); SODIUM LEVEL 139 MEQ/L (136-145)
[2022-02-16] MEDS: INSULIN LISPRO (NovoLOG) PER UNIT SC SCH (07:30)
[2022-02-16 09:00] VITALS: BP 152/79
[2022-02-16] MEDS ORDERED: CHLORTHALIDONE 25 MG TAB PO SCH (09:00)
[2022-02-16] MEDS ORDERED: POTASSIUM CHLORIDE 10MEQ SR TABLET PO SCH (09:00)
[2022-02-16] MEDS ORDERED: ENOXAPARIN 40MG/0.4ML SYRINGE (J1650 PER 10MG) SC SCH (09:00)
[2022-02-16] MEDS: ramipriL 5 MG CAP PO SCH (09:00)
[2022-02-16] MEDS ORDERED: LEVEMIR (INSULIN DETEMIR) 1 UNITS/0.01ML SC SCH ×2 (09:00)
[2022-02-16] MEDS: ESCITALOPRAM OXALATE 10 MG TAB (LEXAPRO) PO SCH (09:00)
[2022-02-16] MEDS ORDERED: ATORVASTATIN 20 MG TAB PO SCH (09:00)
[2022-02-16] MEDS ORDERED: PREVNAR-20 VACCINE 0.5ML SYRINGE IM.IMMUN ONE (09:00)
[2022-02-16] MEDS ORDERED: DOXY-350 PO (10:29)
[2022-02-16] MEDS ORDERED: LEVO1TAB39 PO (10:32)
[2022-02-16] MEDS: VANCOMYCIN HCL 1,000 MG, VIAL MATE ADAPTER 1 EACH in NS 250 ML IV SCH (11:00)
== END 2022-02-16 12:19 | disposition home or self-care (01) | DRG 603 ==
LOC: M ED 09:31 → M ED INP 14:10 → ENRESERV 20:55 → M MSPAV 22:13
PROVIDERS: ADMIT Internal Medicine; ATTEND Internal Medicine
DX: L03.115 Cellulitis of right lower limb (principal); Z68.42 Body mass index [BMI] 45.0-49.9, adult; E11.9 Type 2 diabetes mellitus without complications; I10 Essential (primary) hypertension; E03.9 Hypothyroidism, unspecified; F41.9 Anxiety disorder, unspecified; F32.A Depression, unspecified; E66.9 Obesity, unspecified; Z79.4 Long term (current) use of insulin; Z79.890 Hormone replacement therapy; Z79.899 Other long term (current) drug therapy; Z79.1 Long term (current) use of non-steroidal anti-inflammatories (NSAID)

== ENCOUNTER → 2022-04-03 | Outpatient (REF) | payer MEDICARE, MEDICAID ==
[~2022-04-03] MED LIST changes: +AMIT50TA PO; +CLIN-250 PO; +D 1010004 PO; +DOXY-444 PO; +DULA3PEN SC; +LEVO1TAB39 PO; +LIDO5TD TOP; +NAPR-885 PO; +NYST-13 TOP; -OMEPRAZOLE 20MG CAP PO SCH; +ONDA-83 PO; +POTA-151 PO
[2022-04-03 15:41] LABS: HEMOGLOBIN A1c 8.6 % (4.0-6.0)
== END ==
LOC: M LABDRWAD 13:03
PROVIDERS: ATTEND Surgery
DX: Z86.39 Personal history of other endocrine, nutritional and metabolic disease (principal)

== ENCOUNTER → 2022-08-06 | Outpatient (REF) | payer MEDICARE, MEDICAID ==
[~2022-08-06] MED LIST changes: +DOXY-443 PO
[2022-08-06 16:20] LABS: HEMATOCRIT 40.4 % (36.0-47.0); HEMOGLOBIN 12.9 g/dl (12.0-15.5); MEAN CORPUSCULAR HEMOGLOBIN 27.7 pg (27.0-33.0); MEAN CORPUSCULAR HGB CONC 31.9 g/dl (32.0-36.5); MEAN CORPUSCULAR VOLUME 86.9 fl (80.0-96.0); PLATELET COUNT, AUTOMATED 174 10^3/uL (150-450); RED BLOOD COUNT 4.65 10^6/uL (4.00-5.40)
[2022-08-06 16:51] LABS: CREATININE, URINE 140.8 MG/DL; MAU/CREAT RATIO 4.2 MCG/MG (0.0-30.0)
[2022-08-06 16:54] LABS: ALKALINE PHOSPHATASE 128 U/L (46-116); ALT/SGPT 20 U/L (7.0-40); AST/SGOT 24 U/L (<34); BILIRUBIN,TOTAL 0.8 MG/DL (0.3-1.2); BLOOD UREA NITROGEN 13 MG/DL (9-23); CALCIUM LEVEL 8.6 MG/DL (8.3-10.6); CARBON DIOXIDE LEVEL 32 MMOL/L (20-31); CHLORIDE LEVEL 106 MMOL/L (98-107); CHOLESTEROL LEVEL 146 MG/DL (<200); GLOMERULAR FILTRATION RATE > 60.0 (>39); GLUCOSE, FASTING 211 MG/DL (74-106); HDL CHOLESTEROL 32.4 MG/DL (>40); LDL CHOLESTEROL 66.2 MG/DL (<100); NON-HDL-C 113.6 MG/DL; POTASSIUM SERUM 4.3 MMOL/L (3.5-5.1); SODIUM LEVEL 142 MMOL/L (136-145); TRIGLYCERIDES LEVEL 237 MG/DL (<150)
[2022-08-06 16:55] LABS: FREE T4 1.24 NG/DL (0.89-1.76); VITAMIN B12 LEVEL 470 PG/ML (211-911)
[2022-08-06 16:56] LABS: FOLATE 11.5 NG/ML (>5.4); THYROID STIMULATING HORMONE 1.558 uIU/ML (0.55-4.78); TOTAL 25(OH) VITAMIN D 30.8 NG/ML (20.0-100.0)
[2022-08-06 17:31] LABS: HEMOGLOBIN A1c 10.4 % (4.0-6.0)
== END ==
LOC: M SFHCADAM 16:01
PROVIDERS: ATTEND Physician Assistant
DX: E03.9 Hypothyroidism, unspecified (principal); E11.65 Type 2 diabetes mellitus with hyperglycemia; E78.2 Mixed hyperlipidemia; E66.01 Morbid (severe) obesity due to excess calories; G47.33 Obstructive sleep apnea (adult) (pediatric); I10 Essential (primary) hypertension

== ENCOUNTER → 2022-08-06 | Outpatient (CLI) | payer MEDICARE, MEDICAID | LOC: M WHC 13:43 | PROVIDERS: ATTEND Physician Assistant | DX: E03.9 Hypothyroidism, unspecified (principal); E11.65 Type 2 diabetes mellitus with hyperglycemia; E78.2 Mixed hyperlipidemia; G47.33 Obstructive sleep apnea (adult) (pediatric); E66.01 Morbid (severe) obesity due to excess calories; I10 Essential (primary) hypertension ==

== ENCOUNTER → 2022-08-12 | Day surgery (SDC) | payer MEDICARE, MEDICAID ==
[~2022-08-12] VITALS: Ht 152.4 cm; Wt 108.9 kg
[~2022-08-12] MED LIST changes: +NS 1,000 ML IV ONE
[2022-08-12 15:16] VITALS: BP 205/90
== END | disposition home or self-care (01) ==
LOC: M OPP 14:07
PROVIDERS: ATTEND Internal Medicine Gastroenterology
DX: Z53.8 Procedure and treatment not carried out for other reasons (principal)

== ENCOUNTER → 2023-05-09 | Outpatient (REF) | payer MEDICARE, MEDICAID ==
[~2023-05-09] MED LIST changes: -AMIT25TA17 PO; +AMIT25TA19 PO; -NS 1,000 ML IV ONE
[2023-05-09 14:10] LABS: BASO % 0.5 % (0.0-1.0); EOS # 0.1 10^3/uL (0.0-0.5); EOS % 1.2 % (0.0-3.0); HEMATOCRIT 44.8 % (36.0-47.0); HEMOGLOBIN 14.7 g/dl (12.0-15.5); LYMPH # 2.7 10^3/uL (1.5-5.0); LYMPH % 34.5 % (24.0-44.0); MEAN CORPUSCULAR HEMOGLOBIN 28.6 pg (27.0-33.0); MEAN CORPUSCULAR HGB CONC 32.8 g/dl (32.0-36.5); MEAN CORPUSCULAR VOLUME 87.2 fl (80.0-96.0); MONO # 0.7 10^3/uL (0.0-0.8); MONO % 8.9 % (2.0-8.0); NEUTROPHILS # 4.2 10^3/uL (1.5-8.5); NEUTROPHILS % 54.8 % (36.0-66.0); PLATELET COUNT, AUTOMATED 206 10^3/uL (150-450); RED BLOOD COUNT 5.14 10^6/uL (4.00-5.40); WHITE BLOOD COUNT 7.7 10^3/uL (4.0-10.0)
[2023-05-09 14:17] LABS: ALBUMIN 3.3 G/DL (3.2-5.2); ALKALINE PHOSPHATASE 138 U/L (46-116); ALT/SGPT 17 U/L (7.0-40); AST/SGOT 13 U/L (<34); BILIRUBIN,TOTAL 1.4 MG/DL (0.3-1.2); BLOOD UREA NITROGEN 17 MG/DL (9-23); CALCIUM LEVEL 9.6 MG/DL (8.3-10.6); CARBON DIOXIDE LEVEL 36 MMOL/L (20-31); CHLORIDE LEVEL 100 MMOL/L (98-107); CHOLESTEROL LEVEL 152 MG/DL (<200); CREATININE FOR GFR 0.77 MG/DL (0.55-1.30); GLOMERULAR FILTRATION RATE > 60.0 (>39); GLUCOSE, FASTING 229 MG/DL (74-106); HDL CHOLESTEROL 42.2 MG/DL (>40); LDL CHOLESTEROL 77.6 MG/DL (<100); NON-HDL-C 109.8 MG/DL; POTASSIUM SERUM 4.1 MMOL/L (3.5-5.1); SODIUM LEVEL 138 MMOL/L (136-145); TOTAL PROTEIN 6.6 G/DL (5.7-8.2); TRIGLYCERIDES LEVEL 161 MG/DL (<150)
[2023-05-09 14:19] LABS: FREE T4 1.54 NG/DL (0.89-1.76)
[2023-05-09 14:20] LABS: THYROID STIMULATING HORMONE 2.058 uIU/ML (0.55-4.78)
[2023-05-09 14:22] LABS: FREE T3 2.9 PG/ML (2.3-4.2)
== END ==
LOC: M LABDRWAD 12:43
PROVIDERS: ATTEND Family Medicine
DX: E03.9 Hypothyroidism, unspecified (principal); E11.69 Type 2 diabetes mellitus with other specified complication

== ENCOUNTER 2023-11-11 20:29 | Emergency (ER) | payer MEDICARE, MEDICAID ==
[~2023-11-11] VITALS: Ht 152.4 cm; Wt 100.0 kg
[~2023-11-11 20:29] MED LIST changes: +DOXY-323 PO; +DOXY-440 PO; -DOXY-443 PO; -DOXY-444 PO; +RAMI10CA64 PO; -RAMI1CAP26 PO
[2023-11-11 20:42] VITALS: BP 125/73; TEMP 97.1
[2023-11-11 21:35] LABS: BASO # 0.1 10^3/uL (0.0-0.2); BASO % 0.4 % (0.0-1.0); EOS % 0.1 % (0.0-3.0); HEMOGLOBIN 15.7 g/dl (12.0-15.5); LYMPH # 2.5 10^3/uL (1.5-5.0); LYMPH % 20.3 % (24.0-44.0); MEAN CORPUSCULAR HGB CONC 34.1 g/dl (32.0-36.5); MONO # 0.5 10^3/uL (0.0-0.8); MONO % 4.2 % (2.0-8.0); NEUTROPHILS # 9.2 10^3/uL (1.5-8.5); NEUTROPHILS % 74.7 % (36.0-66.0); PLATELET COUNT, AUTOMATED 234 10^3/uL (150-450); RED BLOOD COUNT 5.61 10^6/uL (4.00-5.40); WHITE BLOOD COUNT 12.2 10^3/uL (4.0-10.0)
[2023-11-11 21:56] LABS: LIPASE 30 U/L (12-53)
[2023-11-11 21:59] LABS: ALBUMIN 3.6 G/DL (3.2-5.2); ALKALINE PHOSPHATASE 145 U/L (46-116); ALT/SGPT 21 U/L (7.0-40); AST/SGOT 20 U/L (<34); BILIRUBIN,DIRECT 0.6 MG/DL (<0.4); BILIRUBIN,TOTAL 2.2 MG/DL (0.3-1.2); BLOOD UREA NITROGEN 16 MG/DL (9-23); CALCIUM LEVEL 10.1 MG/DL (8.3-10.6); CARBON DIOXIDE LEVEL 26 MMOL/L (20-31); CHLORIDE LEVEL 99 MMOL/L (98-107); GLOMERULAR FILTRATION RATE > 60.0 (>39); GLUCOSE, FASTING 146 MG/DL (74-106); POTASSIUM SERUM 3.2 MMOL/L (3.5-5.1); SODIUM LEVEL 137 MMOL/L (136-145); TOTAL PROTEIN 7.2 G/DL (5.7-8.2)
[2023-11-11] MEDS: CYCLOBENZAPRINE 10MG TABLET PO ONE (22:22)
[2023-11-11 22:23] VITALS: O2SAT 96
[2023-11-11] MEDS: oxyCODONE 5MG TAB PO ONE (22:23)
[2023-11-11] MEDS: KETOROLAC 60MG 2ML VIAL IM ONE (22:24)
[2023-11-11] MEDS ORDERED: LIDO30CR18 TOP (23:38)
[2023-11-11] MEDS ORDERED: CYCL-707 PO (23:38)
== END 2023-11-12 00:47 | disposition home or self-care (01) ==
LOC: M ED 20:29
DX: S33.5XXA Sprain of ligaments of lumbar spine, initial encounter (principal); Y92.9 Unspecified place or not applicable; Y93.9 Activity, unspecified; Y99.9 Unspecified external cause status; I44.4 Left anterior fascicular block; Z79.2 Long term (current) use of antibiotics; Z79.4 Long term (current) use of insulin; Z79.84 Long term (current) use of oral hypoglycemic drugs; Z79.899 Other long term (current) drug therapy
CPT/HCPCS: 80048; 80076; 83690; 85025; 93005; 96372; 99285; J1885

== ENCOUNTER → 2024-07-07 | Outpatient (CLI) | payer MEDICARE, MEDICAID ==
[~2024-07-07] MED LIST changes: +CYCL-707 PO; -DOXY-323 PO; +DOXY-441 PO; +LIDO30CR18 TOP
== END ==
LOC: M WHC 12:47
PROVIDERS: ATTEND Family Medicine
DX: Z12.31 Encounter for screening mammogram for malignant neoplasm of breast (principal); N64.9 Disorder of breast, unspecified
CPT/HCPCS: 77066; G0279

== ENCOUNTER → 2025-01-24 | Outpatient (CLI) | payer MEDICARE, MEDICAID ==
[~2025-01-24] MED LIST changes: +LIDO1ADH93 TD; -LIDO5DIS41 TD; -NYST-13 TOP; +NYST0.1C TOP
[2025-01-24 14:03] LABS: BASO # 0.1 10^3/uL (0.0-0.2); BASO % 0.6 % (0.0-1.0); EOS # 0.2 10^3/uL (0.0-0.5); EOS % 2.2 % (0.0-3.0); LYMPH # 3.1 10^3/uL (1.5-5.0); LYMPH % 34.3 % (24.0-44.0); MONO # 0.8 10^3/uL (0.0-0.8); MONO % 9.1 % (2.0-8.0); NEUTROPHILS # 4.8 10^3/uL (1.5-8.5); NEUTROPHILS % 53.5 % (36.0-66.0); PLATELET COUNT, AUTOMATED 218 10^3/uL (150-450)
[2025-01-24 14:10] LABS: ERYTHROCYTE SEDIMENTATION RATE 35 mm/hr (0-30)
[2025-01-24 14:15] LABS: ESTIMATED AVERAGE GLUCOSE 148.0 MG/DL (60-110)
[2025-01-24 14:25] LABS: CREATININE, URINE 90.5 MG/DL; MALB URINE SIEMENS 6.0 MG/L; MAU/CREAT RATIO 6.6 MCG/MG (0.0-30.0)
[2025-01-24 14:28] LABS: ALT/SGPT 21.0 U/L (7.0-40); AST/SGOT 20.0 U/L (<34); CALCIUM LEVEL 9.4 MG/DL (8.3-10.6); CARBON DIOXIDE LEVEL 33.0 MMOL/L (20-31); CHLORIDE LEVEL 99.0 MMOL/L (98-107); CREATININE FOR GFR 0.78 MG/DL (0.55-1.30); GLOMERULAR FILTRATION RATE 79.7 (>39); POTASSIUM SERUM 4.3 MMOL/L (3.5-5.1); SODIUM LEVEL 139.0 MMOL/L (136-145)
[2025-01-24 14:29] LABS: FREE T4 1.26 NG/DL (0.89-1.76)
== END ==
LOC: M LABDRWAD 10:57
PROVIDERS: ATTEND Family Medicine
DX: E11.69 Type 2 diabetes mellitus with other specified complication (principal); E03.9 Hypothyroidism, unspecified; R53.83 Other fatigue

== ENCOUNTER → 2025-04-13 | Outpatient (REF) | payer MEDICARE, MEDICAID ==
[2025-04-13 14:52] LABS: ALT/SGPT 14.0 U/L (7.0-40); AST/SGOT 17.0 U/L (<34); CALCIUM LEVEL 8.5 MG/DL (8.3-10.6); CARBON DIOXIDE LEVEL 32.0 MMOL/L (20-31); CHLORIDE LEVEL 99.0 MMOL/L (98-107); CREATININE FOR GFR 0.86 MG/DL (0.55-1.30); GLOMERULAR FILTRATION RATE 70.4 (>39); MAGNESIUM LEVEL 1.1 MG/DL (1.8-2.4); POTASSIUM SERUM 4.1 MMOL/L (3.5-5.1); SODIUM LEVEL 139.0 MMOL/L (136-145)
[2025-04-13 14:57] LABS: BASO # 0.1 10^3/uL (0.0-0.2); BASO % 0.9 % (0.0-1.0); EOS # 0.1 10^3/uL (0.0-0.5); EOS % 1.0 % (0.0-3.0); LYMPH # 2.7 10^3/uL (1.5-5.0); LYMPH % 33.7 % (24.0-44.0); MONO # 0.8 10^3/uL (0.0-0.8); MONO % 10.3 % (2.0-8.0); NEUTROPHILS # 4.4 10^3/uL (1.5-8.5); NEUTROPHILS % 53.7 % (36.0-66.0); PLATELET COUNT, AUTOMATED 220 10^3/uL (150-450)
[2025-04-13 15:06] LABS: APPEARANCE, URINE HAZY (CLEAR); BACTERIA, URINE AUTO 1+ (NEGATIVE); BILIRUBIN, URINE AUTO NEGATIVE (NEGATIVE); BLOOD, URINE BLOOD NEGATIVE (NEGATIVE); GLUCOSE, URINE (UA) AUTO 3+ mg/dL (NEGATIVE); KETONE, URINE AUTO NEGATIVE (NEGATIVE); LEUKOCYTE ESTERASE, URINE AUTO 2+ (NEGATIVE); MUCUS, URINE SMALL (NEGATIVE); NITRITE, URINE AUTO NEGATIVE (NEGATIVE); PROTEIN, URINE AUTO NEGATIVE (NEGATIVE); RBC, URINE AUTO 2 /HPF (0-3); SPECIFIC GRAVITY URINE AUTO 1.020 (1.002-1.035); SQUAMOUS EPITHELIAL CELL UR AU 4 /HPF (0-6); UROBILINOGEN, URINE AUTO 0.2 mg/dL (0.0-2.0); WBC, URINE AUTO 29 /HPF (0-3); YEAST LIKE CELL URINE AUTO SMALL
== END ==
LOC: M LABDRWAD 12:59
PROVIDERS: ATTEND Family Medicine
DX: R53.81 Other malaise (principal)

== ENCOUNTER 2025-04-25 13:11 | Observation (INO) | payer MEDICARE, MEDICAID ==
[~2025-04-25] VITALS: Ht 152.4 cm; Wt 101.7 kg
[2025-04-25 16:12] LABS: BASO # 0.1 10^3/uL (0.0-0.2); BASO % 0.5 % (0.0-1.0); EOS # 0.1 10^3/uL (0.0-0.5); EOS % 0.7 % (0.0-3.0); LYMPH # 3.0 10^3/uL (1.5-5.0); LYMPH % 27.7 % (24.0-44.0); MONO # 1.0 10^3/uL (0.0-0.8); MONO % 9.4 % (2.0-8.0); NEUTROPHILS # 6.6 10^3/uL (1.5-8.5); NEUTROPHILS % 61.4 % (36.0-66.0); PLATELET COUNT, AUTOMATED 210 10^3/uL (150-450)
[2025-04-25 16:32] LABS: CALCIUM LEVEL 9.1 MG/DL (8.3-10.6); CARBON DIOXIDE LEVEL 30.0 MMOL/L (20-31); CHLORIDE LEVEL 99.0 MMOL/L (98-107); CREATININE FOR GFR 0.8 MG/DL (0.55-1.30); GLOMERULAR FILTRATION RATE 76.8 (>39); POTASSIUM SERUM 3.7 MMOL/L (3.5-5.1); SODIUM LEVEL 138.0 MMOL/L (136-145)
[2025-04-25] MEDS ORDERED: SEMA1PEN2 SQ (16:51)
[2025-04-25] MEDS ORDERED: JARD1TAB PO (16:51)
[2025-04-25] MEDS ORDERED: CIPR-249 PO (16:51)
[2025-04-25] MEDS ORDERED: REST0.05 OU (16:51)
[2025-04-25] MEDS ORDERED: HOME MED LIST COMPLETE! XX SCH (16:55)
[2025-04-25 18:39] LABS: KETONE, URINE AUTO RFX NEGATIVE (NEGATIVE); MUCUS, URINE RFX SMALL (NEGATIVE); NITRITE, URINE AUTO RFX NEGATIVE (NEGATIVE); RBC, URINE AUTO RFX 0 /HPF (0-3); SQUAM EPITHELIAL CELL UR AURFX 1 /HPF (0-6); WBC, URINE AUTO RFX 6 /HPF (0-3)
[2025-04-25 18:41] LABS: LEUKOCYTE ESTERASE UR AUTO RFX TRACE (NEGATIVE)
[2025-04-25 19:14] LABS: VENOUS BASE EXCESS 7.5 (-2.0-2.0); VENOUS HCO3 34.0 MMOL/L (23.0-27.0); VENOUS O2 SATURATION 42.5 % (60.0-80.0); VENOUS PARTIAL PRESSURE CO2 54.0 mmHg (38.0-50.0); VENOUS PARTIAL PRESSURE O2 24.6 mmHg (30.0-50.0); VENOUS PH 7.417 UNITS (7.330-7.430); VENOUS STANDARD HCO3 29.5 MMOL/L; VENOUS TOTAL CO2 35.7 MMOL/L (24.0-28.0)
[2025-04-25 19:29] LABS: FREE T4 1.76 NG/DL (0.89-1.76)
[2025-04-25 19:45] LABS: ESTIMATED AVERAGE GLUCOSE 212.0 MG/DL (60-110)
[2025-04-25] MEDS: NS (Normal Saline) 0.9% 1,000 ML IV ONE (20:30)
[2025-04-25] MEDS ORDERED: MAALOX 30 ML SUSP *UDC PO PRN (23:20)
[2025-04-25] MEDS ORDERED: ACETAMINOPHEN 325 MG TAB PO PRN (23:20)
[2025-04-25] MEDS ORDERED: MOM 30 ML SUSPENSION UDC PO PRN (23:20)
[2025-04-25] MEDS ORDERED: PILL CUTTER 1 EACH XX PRN (23:35)
[2025-04-26] MEDS: AMITRIPTYLINE 50MG TAB PO SCH (00:16)
[2025-04-26] MEDS: ESCITALOPRAM OXALATE 10 MG TABLET PO SCH (00:16)
[2025-04-26 01:25] VITALS: BP 132/88; TEMP 97.3; O2SAT 95
[2025-04-26] MEDS ORDERED: GLUCOSE 4 GM CHEW PO PRN (03:50)
[2025-04-26] MEDS ORDERED: DEXTROSE 50% 50 ML SYRINGE IV PRN (03:50)
[2025-04-26] MEDS ORDERED: GLUCAGON INJ 1 MG VIAL SC PRN (03:50)
[2025-04-26 04:00] VITALS: BP 130/88; TEMP 97.5; O2SAT 95
[2025-04-26] MEDS: CIPROFLOXACIN 500 MG TABLET PO SCH (05:49)
[2025-04-26] MEDS: LEVOTHYROXINE 125 MCG TABLET (0.125 MG) PO SCH (05:49)
[2025-04-26] MEDS ORDERED: PANTOPRAZOLE 40MG VIAL IV SCH (09:00)
[2025-04-26] MEDS ORDERED: CHLORTHALIDONE 25 MG TAB PO SCH (09:00)
[2025-04-26] MEDS ORDERED: POTASSIUM CHLORIDE 10MEQ SR TABLET PO SCH (09:00)
[2025-04-26] MEDS: INSULIN LISPRO (NovoLOG) PER UNIT SC SCH ×2 (09:10→20:11)
[2025-04-26] MEDS: LanTUS (INSULIN GLARGINE INJ) 1 UNITS/0.01 ML SC SCH (09:11)
[2025-04-26] MEDS: ENOXAPARIN 40 MG/0.4 ML SYRINGE (J1650 PER 10MG) SC SCH (09:11)
[2025-04-26] MEDS: PANTOPRAZOLE 40MG TAB PO SCH (09:12)
[2025-04-26] MEDS: ATORVASTATIN 20 MG TAB PO SCH (09:12)
[2025-04-26] MEDS: DOCUSATE SODIUM 100 MG CAPSULE PO SCH (09:12)
[2025-04-26] MEDS: DAPAGLIFLOZIN PROPANEDIOL 10 MG TABLET PO SCH (09:13)
[2025-04-26 10:11] LABS: PLATELET COUNT, AUTOMATED 204 10^3/uL (150-450)
[2025-04-26 11:33] LABS: CALCIUM LEVEL 8.9 MG/DL (8.3-10.6); CARBON DIOXIDE LEVEL 28.0 MMOL/L (20-31); CHLORIDE LEVEL 96.0 MMOL/L (98-107); CREATININE FOR GFR 0.81 MG/DL (0.55-1.30); GLOMERULAR FILTRATION RATE 75.7 (>39); MAGNESIUM LEVEL 1.5 MG/DL (1.8-2.4); PHOSPHORUS LEVEL 3.1 MG/DL (2.4-5.1); POTASSIUM SERUM 3.2 MMOL/L (3.5-5.1); SODIUM LEVEL 135.0 MMOL/L (136-145)
[2025-04-26 12:00] VITALS: BP 119/74; TEMP 97.6; O2SAT 97
[2025-04-26] MEDS: FLUZONE HIGH DOSE (65+) 0.5 ML SYRINGE (25-26) IM.IMMUN ONE (16:14)
[2025-04-26] MEDS: POTASSIUM CHLORIDE 10MEQ SR TABLET PO ONE (16:15)
[2025-04-26] MEDS: MAG SULF 1GM/100ML (MAG RUN) 1 GM in IV 1 EA IV ONE (16:16)
[2025-04-26 19:37] VITALS: BP 116/59; TEMP 97.1; O2SAT 95
[2025-04-27 04:16] VITALS: BP 145/79; TEMP 96.9; O2SAT 99
[2025-04-27 06:56] LABS: BASO # 0.1 10^3/uL (0.0-0.2); BASO % 0.7 % (0.0-1.0); EOS # 0.1 10^3/uL (0.0-0.5); EOS % 2.0 % (0.0-3.0); LYMPH # 2.2 10^3/uL (1.5-5.0); LYMPH % 31.9 % (24.0-44.0); MONO # 0.7 10^3/uL (0.0-0.8); MONO % 10.4 % (2.0-8.0); NEUTROPHILS # 3.8 10^3/uL (1.5-8.5); NEUTROPHILS % 54.7 % (36.0-66.0); PLATELET COUNT, AUTOMATED 169 10^3/uL (150-450)
[2025-04-27 07:16] LABS: CALCIUM LEVEL 8.6 MG/DL (8.3-10.6); CARBON DIOXIDE LEVEL 30.0 MMOL/L (20-31); CHLORIDE LEVEL 98.0 MMOL/L (98-107); CREATININE FOR GFR 0.79 MG/DL (0.55-1.30); GLOMERULAR FILTRATION RATE 78.0 (>39); MAGNESIUM LEVEL 1.7 MG/DL (1.8-2.4); POTASSIUM SERUM 3.3 MMOL/L (3.5-5.1); SODIUM LEVEL 138.0 MMOL/L (136-145)
[2025-04-27] MEDS: INSULIN LISPRO (NovoLOG) PER UNIT SC SCH ×2 (08:14→08:15)
[2025-04-27] MEDS: LanTUS (INSULIN GLARGINE INJ) 1 UNITS/0.01 ML SC SCH (08:15)
[2025-04-27 08:18] VITALS: BP 125/87
[2025-04-27] MEDS: MAGNESIUM OXIDE 400 MG TAB PO SCH (08:18)
[2025-04-27] MEDS: POTASSIUM CHLORIDE 10MEQ SR TABLET PO ONE (08:18)
[2025-04-27 12:00] VITALS: BP 143/83; TEMP 98.2; O2SAT 95
[2025-04-27] MEDS ORDERED: MAGN400T33 PO (15:02)
[2025-04-27] MEDS ORDERED: TOUJ1.2I SC (15:02)
[2025-04-27] MEDS ORDERED: HUMA100I5 SC (15:06)
[2025-04-27] MEDS ORDERED: PEN-308 SC (15:08)
[2025-04-27] MEDS ORDERED: BLOOKIT21 XX (15:08)
[2025-04-27] MEDS ORDERED: LANC30MI XX (15:08)
[2025-04-27] MEDS ORDERED: GLUC1TES2 XX (15:08)
[2025-04-27] MEDS ORDERED: BLOO-259 MC (15:15)
[2025-04-27] MEDS ORDERED: FLAS1KIT2 MC (15:15)
[2025-04-28] MEDS ORDERED: LanTUS (INSULIN GLARGINE INJ) 1 UNITS/0.01 ML SC SCH (09:00)
== END 2025-04-27 18:46 | disposition home or self-care (01) ==
LOC: M ED 13:11 → M ED INP 23:20 → M MS4PR 04-26 01:22
PROVIDERS: ADMIT Student in an Organized Health Care Education/Training Program; ATTEND Student in an Organized Health Care Education/Training Program
DX: E11.65 Type 2 diabetes mellitus with hyperglycemia (principal); E86.0 Dehydration; E87.6 Hypokalemia; E83.42 Hypomagnesemia; R54 Age-related physical debility; I95.1 Orthostatic hypotension; N39.0 Urinary tract infection, site not specified; D72.829 Elevated white blood cell count, unspecified; K21.9 Gastro-esophageal reflux disease without esophagitis; M51.9 Unspecified thoracic, thoracolumbar and lumbosacral intervertebral disc disorder; E66.01 Morbid (severe) obesity due to excess calories; Z68.41 Body mass index [BMI] 40.0-44.9, adult; G47.33 Obstructive sleep apnea (adult) (pediatric); K76.0 Fatty (change of) liver, not elsewhere classified; F32.A Depression, unspecified; F41.9 Anxiety disorder, unspecified; E03.9 Hypothyroidism, unspecified; R42 Dizziness and giddiness; R26.81 Unsteadiness on feet; Z90.79 Acquired absence of other genital organ(s); Z79.899 Other long term (current) drug therapy; Z79.2 Long term (current) use of antibiotics; Z79.890 Hormone replacement therapy; Z79.84 Long term (current) use of oral hypoglycemic drugs; Z23 Encounter for immunization
CPT/HCPCS: 36415; 71045; 80048; 81001; 82803; 83036; 83735; 84100; 84145; 84439; 84443; 85025; 85027; 87086; 87486; 87581; 87633; 87798; 90662; 93005; 96361; 96365; 96372; 97165; 99285; G0008; G0378; J1650; J1815; J3475